=== PATIENT | male | born 1935 | race Caucasian/White ===

== ENCOUNTER 2019-08-05 21:28 | Inpatient (IN) | payer OTHER ==
[2019-08-05] MEDS ORDERED: ALBUTEROL 2.5 MG/3 ML NEB SOL ONE (21:38)
[2019-08-05] MEDS ORDERED: IPRATROPIUM BROM 0.5MG/2.5ML ONE (21:38)
[2019-08-05] MEDS ORDERED: NA CHLORIDE 0.9% 2,000 ML ONE (22:11)
[2019-08-05 22:16] LABS: Absolute Lymphocytes (CBC) 0.7 K/uL (0.7-4.9); Basophils % 0.3 % (0-1.3); Hematocrit 36.8 % (39.6-49.0); Lymphocytes % 5.1 % (15.3-44.8); MPV 9.4 fL (7.6-11.3); RBC Red Blood Cell Count 4.03 M/uL (4.33-5.43)
[2019-08-05 22:20] LABS: Protime INR 1.19
[2019-08-05] MEDS ORDERED: AZITHROMYCIN 500 MG INJ IVPB ONE (22:33)
[2019-08-05] MEDS ORDERED: CEFTRIAXONE 1000 MG/VIAL ONE (22:33)
[2019-08-05] MEDS ORDERED: NA CHLORIDE 0.9% 100 ML IV ONE (22:34)
[2019-08-05] MEDS ORDERED: NA CHLORIDE 0.9% 250 ML ONE (22:34)
[2019-08-05 22:44] LABS: Arterial Blood Carboxyhemoglob 1.9 % (0-1.5); Blood Gas Oxyhemoglobin 89.2 % (94-97); Blood O2 Saturation 91.9 % (92-98.5)
[2019-08-05 22:50] LABS: Blood Morphology Comment NOT SEEN (NOT SEEN); Platelet Estimate ADEQ
[2019-08-05 22:56] LABS: Albumin 2.5 g/dL (3.4-5.0); Bilirubin Direct 0.5 mg/dL (0-0.2); Bilirubin Total 1.5 mg/dL (0.2-1.0); CKMB Creatine Kinase MB 1.5 ng/mL (0.3-3.6); Protein, Total 6.6 g/dL (6.4-8.2); Troponin (Emerg Dept Use Only) 0.05 ng/mL (0.0-0.045)
[2019-08-05] MEDS ORDERED: ONDANSETRON 4 MG/2 ML VIAL IV PRN (23:03)
[2019-08-05] MEDS ORDERED: ACETAMINOPHEN 500 MG TAB PO PRN (23:03)
[2019-08-05] MEDS ORDERED: NA CHLORIDE 0.9% 1,000 ML IV SCH (23:45)
--- NOTE | 2019-08-06 00:05 | EDPHYS ---
Physician Documentation [facility] Name: Ephraim Syed Age: 84 yrs Sex: Male : 1935 Arrival Date: 08/05/2019 Time: 21:36 Bed 3 Private MD: ED Physician Jourdan Parada HPI: 08/05 02:16 This 84 yrs old Male presents to ER via EMS with complaints of Shortness Of tw4 Breath. 02:16 The patient has shortness of breath at rest. Onset: The symptoms/episode began/occurred tw4 2 day(s) ago. Duration: The symptoms are continuous, and are unchanged since they started. The patient's shortness of breath has no apparent modifying factors. Associated signs and symptoms: The patient has no apparent associated signs or symptoms. Severity of symptoms: At their worst the symptoms were moderate in the emergency department the symptoms are unchanged. The patient has not experienced similar symptoms in the past. Historical: - Allergies: 08/04 21:52 No Known Allergies; ea - Home Meds: 22:16 tamsulosin 0.4 mg oral cp24 1 cap once daily [Active]; simvastatin 80 mg Oral tab 80 mg ea daily [Active]; metoprolol tartrate 50 mg Oral tab 1 tab 2 times per day [Active]; losartan 100 mg oral tab 1 tab twice daily [Active]; amlodipine 10 mg tab 1 tab once daily [Active]; pantoprazole 40 mg oral TbEC 1 tab once daily [Active]; Spiriva Respimat 1.25 mcg/actuation inhalation mist 2 puffs once daily [Active]; Breo Ellipta 200-25 mcg/dose inhalation dsdv 1 puff once daily [Active]; ProAir RespiClick 90 mcg/actuation inhalation aepb [Active]; - PMHx: 21:52 COPD; ea 22:16 Hypertension; ea - PSHx: 22:16 Heart stents; ea - Immunization history:: Adult Immunizations up to date. - Social history:: Smoking status: Patient reports the use of cigarette tobacco products, former smoking history 20 years ago. ROS: 08/05 02:16 Constitutional: Negative for fever, chills, and weight loss, Eyes: Negative for injury, tw4 pain, redness, and discharge, Cardiovascular: Negative for chest pain, palpitations, and edema, Abdomen/GI: Negative for abdominal pain, nausea, vomiting, diarrhea, and constipation, Back: Negative for injury and pain, MS/Extremity: Negative for injury and deformity, Skin: Negative for injury, rash, and discoloration. Respiratory: Positive for cough, dyspnea on exertion, shortness of breath, wheezing, Negative for hemoptysis, orthopnea, pleurisy. Exam: 02:16 Head/Face: Normocephalic, atraumatic. Chest/axilla: Normal chest wall appearance and tw4 motion. Nontender with no deformity. No lesions are appreciated. Cardiovascular: Regular rate and rhythm with a normal S1 and S2. No gallops, murmurs, or rubs. Normal PMI, no JVD. No pulse deficits. 02:16 Abdomen/GI: Soft, non-tender, with normal bowel sounds. No distension or tympany. No guarding or rebound. No evidence of tenderness throughout. Back: No spinal tenderness. No costovertebral tenderness. Full range of motion. MS/ Extremity: Pulses equal, no cyanosis. Neurovascular intact. Full, normal range of motion. 02:16 Constitutional: The patient appears diaphoretic, frail, in obvious distress, moderately distressed, uncomfortable. 02:16 Respiratory: the patient does not display signs of respiratory distress, Respirations: accessory muscle usage, that is moderate, prolonged exhalation, pursed lip breathing, Breath sounds: decreased breath sounds, that are moderate, are located in both bases. Vital Signs: 08/04 21:38 BP 152 / 75; Pulse 79; Resp 28; Temp 100.2(TE); Pulse Ox 92% on 2 lpm NC; Weight 68.04 ea kg; Height 5 ft. 6 in. (167.64 cm); 23:27 BP 144 / 64; Pulse 85; Resp 22; Temp 99; Pulse Ox 94% on Venturi mask; ea 08/05 00:15 BP 129 / 53; Pulse 82; Resp 18; Pulse Ox 100% ; ea 01:01 BP 151 / 63; Pulse 94; Resp 22; Temp 98.7; Pulse Ox 94% on Venturi mask; ea 02:00 BP 121 / 84; Pulse 94; Resp 22; Pulse Ox 94% ; ea 08/04 21:38 Body Mass Index 24.21 (68.04 kg, 167.64 cm) ea MDM: 08/04 21:47 Patient medically screened. tw4 08/05 02:16 Differential diagnosis: Chronic Obstructive Pulmonary Disease Myocardial Infarction tw4 pneumonia. Antibiotic administration: Rocephin and Zithromax given. Data reviewed: vital signs, nurses notes. Data interpreted: Pulse oximetry: Interpretation: normal. Test interpretation: by ED physician or midlevel provider: ECG, plain radiologic studies. Counseling: I had a detailed discussion with the patient and/or guardian regarding: the historical points, exam findings, and any diagnostic results supporting the discharge/admit diagnosis, lab results, radiology results. Physician consultation: Omaira Colon MD regarding admission, to the telemetry unit. patient's condition, and will see patient. ED course: Pt brought in bipap and states that he felt better after bi pap per EMS. Pt's CXR revealed bilateral pneumonia. pt placed on IV antibiotics. Discussed case with Dr Colon who agrees with treatment plan and admission. 08/04 21:37 Order name: Amylase, Serum 08/04 21:37 Order name: Basic Metabolic Panel 08/04 21:37 Order name: Blood Culture Adult (2) 08/04 21:37 Order name: CBC with Diff 08/04 21:37 Order name: Ckmb 08/04 21:37 Order name: CPK 08/04 21:37 Order name: Lactate 08/04 21:37 Order name: LFT's 08/04 21:37 Order name: Lipase 08/04 21:37 Order name: Procalcitonin 08/04 21:37 Order name: Protime (+inr) 08/04 21:37 Order name: Ptt, Activated 08/04 21:38 Order name: Troponin (emerg Dept Use Only) 08/04 21:38 Order name: Urine Microscopic Only 08/04 22:06 Order name: Glucose, Ancillary Testing EDMD 08/04 22:24 Order name: ABG tw 08/04 22:51 Order name: Manual Differential EDMD 08/04 23:09 Order name: ABG Arterial Blood Gas EDMD 08/04 23:09 Order name: ABG Arterial Blood Gas EDMD 08/04 23:09 Order name: CBC with Automated Diff EDMS 08/04 23:09 Order name: CBC with Automated Diff EDMS 08/04 23:09 Order name: Comprehensive Metabolic Panel [facility] 08/04 23:09 Order name: Comprehensive Metabolic Panel [facility] 08/04 23:09 Order name: Lactate EDMD 08/04 23:09 Order name: Lactate [facility] 08/04 23:09 Order name: Lipid Profile [facility] 08/04 23:09 Order name: Lipid Profile [facility] 08/04 23:09 Order name: Magnesium EDMD 08/04 23:09 Order name: Magnesium EDMD 08/04 23:09 Order name: Phosphorus [facility] 08/04 21:38 Order name: Chest Single View XRAY 08/04 21:38 Order name: Accucheck; Complete Time: 21:52 ea 08/04 21:38 Order name: Cardiac monitoring; Complete Time: 21:52 08/04 21:38 Order name: EKG - Nurse/Tech; Complete Time: 21:53 ea 08/04 21:38 Order name: IV Saline Lock - Large Bore; Complete Time: 21:53 08/04 21:38 Order name: Labs collected and sent; Complete Time: 21:53 08/04 21:38 Order name: O2 Per Protocol; Complete Time: 21:53 ea 08/04 21:38 Order name: O2 Sat Monitoring; Complete Time: 21:53 08/04 21:38 Order name: Urine Dipstick-Ancillary (obtain specimen); Complete Time: 01:56 08/04 23:09 Order name: CONS Physician Consult [facility] 08/04 23:09 Order name: NPO [facility] 08/04 23:09 Order name: Phosphorus [facility] 08/04 23:09 Order name: NT PRO-BNP [facility] 08/04 23:09 Order name: NT PRO-BNP [facility] 08/05 01:52 Order name: Urine Dipstick--Ancillary (enter results) 2 08/05 02:03 Order name: Urine Dipstick-Ancillary EDMD EC:35 Rate is 82 beats/min. Rhythm is regular, Sinus Rhythm with Occasional PVCs, Right tw4 bundle branch block. QRS [place] is Normal. AL interval is normal. QRS interval is normal. QT interval is normal. No Q waves. T waves are Normal. No ST changes noted. Clinical impression: NSR w/ Non-specific ST/T Changes. Interpreted by me. Reviewed by me. Administered Medications: 08/04 22:15 Drug: NS 0.9% (30 ml/kg) 30 ml/kg Route: IV; Rate: bolus; Site: right hand; ea 08/05 02:26 Follow up: Response: No adverse reaction; IV Status: Infusion continued upon admission; IV Intake: 750ml 08/04 22:36 Drug: Rocephin - (cefTRIAXone) 1 grams Route: IVPB; Infused Over: 30 mins; Site: right ea hand; 23:23 Follow up: Response: No adverse reaction; IV Status: Completed infusion 23:23 Drug: AZITHromycin 500 mg Route: IVPB; Infused Over: 1 hrs; Site: left forearm; ea 08/05 00:23 Follow up: Response: No adverse reaction; IV Status: Completed infusion; IV Intake: ea 250ml Disposition: :33 Critical Care:. tw4 Disposition: 08/06/19 00:04 Hospitalization ordered by Omaira Colon for Inpatient Admission. Preliminary diagnosis are Bronchopneumonia, unspecified organism, Hypoxemia, Chronic obstructive pulmonary disease with (acute) exacerbation. - Bed requested for Telemetry/MedSurg (Inpatient). - Status is Inpatient Admission. ea - Condition is Stable. - Problem is new. - Symptoms are unchanged. Critical care time excluding procedures: :33 Critical care time: Bedside Care: 35 minutes, Consultation: 5 minutes, Family tw4 Intervention: 5 minutes. Total time: 45 minutes Signatures: Dispatcher [employer] [place] Flores RN RN ea Wadley, Terrence, MD MD tw4 Dulce Locke mw2 Corrections: (The following items were deleted from the chart) 00:29 00:04 Hospitalization Ordered by Omaira Colon MD for Inpatient Admission. Preliminary mw2 diagnosis is Bronchopneumonia, unspecified organism; Hypoxemia; Chronic obstructive pulmonary disease with (acute) exacerbation. Bed requested for Telemetry/MedSurg (Inpatient). Status is Inpatient Admission. Condition is Stable. Problem is new. Symptoms are unchanged. tw4 02:27 00:29 08/06/2019 00:04 Hospitalization Ordered by Omaira Colon MD for Inpatient ea Admission. Preliminary diagnosis is Bronchopneumonia, unspecified organism; Hypoxemia; Chronic obstructive pulmonary disease with (acute) exacerbation. Bed requested for Telemetry/MedSurg (Inpatient). Status is Inpatient Admission. Condition is Stable. Problem is new. Symptoms are unchanged. mw2
--- NOTE | 2019-08-06 00:05 | ER ---
Nurse's Notes [facility] Name: Ephraim Syed Age: 84 yrs Sex: Male : 1935 Arrival Date: 08/05/2019 Time: 21:36 Bed 3 Private MD: Diagnosis: Bronchopneumonia, unspecified organism;Hypoxemia;Chronic obstructive pulmonary disease with (acute) exacerbation Presentation: 08/04 21:38 Chief complaint: EMS states: EMS reports pt was on the ground, states family noticed he ea was short of breath. Pt has a history of COPD. EMS initiated 20 G IV to right hand, solumedrol 125, Mag 2G, DuoNeb and CPAP. Coronavirus screen: The patient has NOT traveled to a country currently being monitored by the CDC within the last 14 days. Ebola Screen: No symptoms or risks identified at this time. Initial Sepsis Screen: Does the patient meet any 2 criteria? RR > 20 per min. Temp <36.0*C (96.8*F)) or > 38.3*C (100.9*F). Does the patient have a suspected source of infection? Yes: Other: SOB. Risk Assessment: Do you want to hurt yourself or someone else? Patient reports no desire to harm self or others. 21:38 Method Of Arrival: EMS: [facility] ea 21:38 Acuity: HYACINTH 2 ea Triage Assessment: 21:52 General: Appears uncomfortable, Behavior is appropriate for age. Pain: Denies pain. ea Respiratory: Reports shortness of breath at rest Onset: The symptoms/episode began/occurred SOB for a few days and worsened today, Historical: - Allergies: 21:52 No Known Allergies; ea - Home Meds: 22:16 tamsulosin 0.4 mg oral cp24 1 cap once daily [Active]; simvastatin 80 mg Oral tab 80 mg ea daily [Active]; metoprolol tartrate 50 mg Oral tab 1 tab 2 times per day [Active]; losartan 100 mg oral tab 1 tab twice daily [Active]; amlodipine 10 mg tab 1 tab once daily [Active]; pantoprazole 40 mg oral TbEC 1 tab once daily [Active]; Spiriva Respimat 1.25 mcg/actuation inhalation mist 2 puffs once daily [Active]; Breo Ellipta 200-25 mcg/dose inhalation dsdv 1 puff once daily [Active]; ProAir RespiClick 90 mcg/actuation inhalation aepb [Active]; - PMHx: 21:52 COPD; ea 22:16 Hypertension; ea - PSHx: 22:16 Heart stents; ea - Immunization history:: Adult Immunizations up to date. - Social history:: Smoking status: Patient reports the use of cigarette tobacco products, former smoking history 20 years ago. Screenin:47 Abuse screen: Denies threats or abuse. Nutritional screening: No deficits noted. ea Tuberculosis screening: No symptoms or risk factors identified. Fall Risk IV access (20 points). Assessment: 21:53 General: Appears uncomfortable. Pain: Denies pain. Neuro: Level of Consciousness is ea awake, alert, obeys commands, Oriented to person, place, time, situation. Cardiovascular: Patient's skin is warm and dry. Respiratory: Airway is patent Respiratory effort is even, labored, Respiratory pattern is tachypnea Breath sounds are diminished bilaterally. Derm: Skin is pink, warm \T\ dry. 22:55 Reassessment: Respiratory at bedside, BiPAP removed, pt placed on Venturi mask at 50%, ea pt tolerating well. 23:00 Reassessment: Patient and/or family updated on plan of care and expected duration. Pain ea level reassessed. Patient is alert, oriented x 3, equal unlabored respirations, skin warm/dry/pink. 08/05 00:00 Reassessment: Patient and/or family updated on plan of care and expected duration. Pain ea level reassessed. Patient is alert, oriented x 3, equal unlabored respirations, skin warm/dry/pink. 01:00 Reassessment: Patient and/or family updated on plan of care and expected duration. Pain ea level reassessed. Patient is alert, oriented x 3, equal unlabored respirations, skin warm/dry/pink. 02:20 Reassessment: Patient and/or family updated on plan of care and expected duration. Pain ea level reassessed. Patient is alert, oriented x 3, equal unlabored respirations, skin warm/dry/pink. Pt admitted to second floor, left ED via stretcher per tech. Pt tolerating well. Vital Signs: 08/04 21:38 BP 152 / 75; Pulse 79; Resp 28; Temp 100.2(TE); Pulse Ox 92% on 2 lpm NC; Weight 68.04 ea kg; Height 5 ft. 6 in. (167.64 cm); 23:27 BP 144 / 64; Pulse 85; Resp 22; Temp 99; Pulse Ox 94% on Venturi mask; ea 08/05 00:15 BP 129 / 53; Pulse 82; Resp 18; Pulse Ox 100% ; ea 01:01 BP 151 / 63; Pulse 94; Resp 22; Temp 98.7; Pulse Ox 94% on Venturi mask; ea 02:00 BP 121 / 84; Pulse 94; Resp 22; Pulse Ox 94% ; ea 08/04 21:38 Body Mass Index 24.21 (68.04 kg, 167.64 cm) ea ED Course: 08/04 21:36 Patient arrived in ED. ea 21:45 Initial lab(s) drawn, by me, sent to lab. First set of blood cultures drawn by me. sg Inserted saline lock: 20 gauge in left forearm, using aseptic technique. Blood collected. 21:47 Jourdna Parada MD is Attending Physician. tw4 21:47 Triage completed. ea 21:47 Patient has correct armband on for positive identification. Placed in gown. Bed in low ea position. Call light in reach. Side rails up X2. monitoring analyst on. Pulse ox on. NIBP on. 21:48 Arm band placed on right wrist. Patient placed in an exam room, on a stretcher, on ea pulse oximetry. 21:54 Jamaica Sherman RN is Primary Nurse. ea 21:54 Second set of blood cultures drawn by lab staff. sg 22:24 Chest Single View XRAY In Process Unspecified. EDMS 08/05 00:03 Omaira Colon MD is Hospitalizing Provider. tw4 01:39 Urine collected: clean catch specimen, tea colored, Amount Voided: 250mL sent to lab. lw1 02:15 No provider procedures requiring assistance completed. Patient admitted, IV remains in ea place. Administered Medications: 08/04 22:15 Drug: NS 0.9% (30 ml/kg) 30 ml/kg Route: IV; Rate: bolus; Site: right hand; ea 08/05 02:26 Follow up: Response: No adverse reaction; IV Status: Infusion continued upon admission; ea IV Intake: 750ml 08/04 22:36 Drug: Rocephin - (cefTRIAXone) 1 grams Route: IVPB; Infused Over: 30 mins; Site: right ea hand; 23:23 Follow up: Response: No adverse reaction; IV Status: Completed infusion ea 23:23 Drug: AZITHromycin 500 mg Route: IVPB; Infused Over: 1 hrs; Site: left forearm; ea 08/05 00:23 Follow up: Response: No adverse reaction; IV Status: Completed infusion; IV Intake: ea 250ml Intake: 00:23 IV: 250ml; Total: 250ml. ea 02: IV: 750ml; Total: 1000ml. ea Outcome: 00:04 Decision to Hospitalize by Provider. tw4 02:15 Admitted to Med/surg accompanied by nurse, room 222, Report called to Ry GARCIA ea 02:15 Condition: stable 02:15 Instructed on the need for admit. 02:27 Patient left the ED. ea Signatures: Dispatcher [employer] EDMS Alexander Sawant RN RN Jamaica Sherman RN Jourdan Guallpa ea, MD MD tw4 Sesar Lopez RN RN lw1 Corrections: (The following items were deleted from the chart) 08/04 23:31 23:27 BP 144 / 64; Pulse 85bpm; Resp 18bpm; Pulse Ox 94% Venturi mask; Temp 99F; ea ea 23:32 21:38 BP 152 / 75; Pulse 79bpm; Resp 18bpm; Pulse Ox 92% 2 lpm Nasal Cannula; Temp ea 100.2F Temporal; 68.04 kg; Height 5 ft. 6 in.; BMI: 24.2; ea
[2019-08-06] MEDS ORDERED: IPRATROPIUM BROM 0.5MG/2.5ML ONE (00:17)
[2019-08-06] MEDS ORDERED: ALBUTEROL 2.5 MG/3 ML NEB SOL ONE (00:17)
[2019-08-06] MEDS: IPRATROPIUM BROM 0.5MG/2.5ML NEB SCH ×4 (00:35→19:55)
[2019-08-06] MEDS: ALBUTEROL 2.5 MG/3 ML NEB SOL NEB SCH ×4 (00:35→19:55)
[2019-08-06 01:49] LABS: Urine Bacteria <20 /HPF (NONE SEEN); Urine RBC <5 /HPF (NONE SEEN)
[2019-08-06 02:02] LABS: Urine Blood TRACE (NEG); Urine Glucose NEGATIVE (NEG); Urine Protein 1+ (NEG); Urine Specific Gravity 1.015 (1.005-1.030); Urine pH 5.5 (5.0-7.0)
[2019-08-06] MEDS: METHYLPREDNISOLONE 40 MG INJ IV SCH ×5 (02:50→23:19)
[2019-08-06] MEDS: Levofloxacin 750mg IV 750 MG/150 ML BAG IV SCH ×2 (02:51→20:31)
[2019-08-06 03:42] VITALS: BMI 25.7
[2019-08-06] MEDS: KCL 20 MEQ/100 mL IVPB 20 MEQ/100 ML BAG IV SCH ×2 (05:07→06:57)
[2019-08-06 05:55] LABS: Arterial Blood Carboxyhemoglob 1.3 % (0-1.5); Blood O2 Saturation 95.1 % (92-98.5)
--- NOTE | 2019-08-06 07:31 | P.HP ---
Certification for Inpatient Patient admitted to: Inpatient With expected LOS: >2 Midnights Patient will require the following post-hospital care: None Practitioner: I am a practitioner with admitting privileges, knowledge of patient current condition, hospital course, and medical plan of care. Services: Services provided to patient in accordance with Admission requirements found in Title 42 Section 412.3 of the Code of Federal Regulations Patient History Date of Service: 08/05/19 Reason for admission: Respiratory distress History of Present Illness: Patient is an 84-year-old gentleman with a history of asbestosis who presents to the hospital with difficulty breathing. Patient was apparently found on the ground by the family and they noticed that he was having a difficult time with his breathing. EMS was called and they transported him to the hospital. In the emergency room, patient was started on neb treatments and also oxygen. He was initially on BiPAP support. His ABGs came back looking fairly unremarkable. He was hypoxic as he was on the Venti-mask when they took his ABG initially. If patient has had prior chest x-rays which show infiltrates or pleural thickening. This was most likely secondary to asbestos. He is a poor historian and is really not able to give me much more information. He has not been feeling well for the last couple of days. His family brought him into the emergency room for further evaluation. Allergies No Known Allergies Allergy (Verified 08/06/19 02:11) Home Medications: Albuterol Sulfate [Proair Respiclick] 1 puff IH DAILY 08/06/19 Amlodipine [Norvasc] 10 mg PO DAILY 08/06/19 Fluticasone/Vilanterol [Breo Ellipta 200-25 Mcg INH] 1 each IH DAILY 08/06/19 Hydralazine [Apresoline] 25 mg PO BID 08/06/19 Losartan Potassium 100 mg PO BID 08/06/19 Metoprolol Tartrate 50 mg PO BID 08/06/19 Pantoprazole [Protonix Tab] 40 mg PO DAILY 08/06/19 Simvastatin 80 mg PO DAILY 08/06/19 Tamsulosin [Flomax] 0.4 mg PO DAILY 08/06/19 Tiotropium [place] [Spiriva Respimat] 2 puff IH DAILY 08/06/19 - Past Medical/Surgical History Has patient received pneumonia vaccine in the past: No Diabetic: No -: hypertension -: Copd -: Coronary artery disease -: Cardiac catheterization with stent placement - Family History Father Family History: Reviewed- Non-Contributory - Social History Smoking Status: Former smoker Alcohol use: Yes CD- Drugs: No Caffeine use: Yes Place of Residence: Home Review of Systems 10-point ROS is otherwise unremarkable Physical Examination - Vital Signs Temperature: 98.6 F Blood Pressure: 159/67 Pulse: 113 Respirations: 26 Pulse Ox (%): 95 - Physical Exam General: Alert, In no apparent distress, Oriented x2, Confused HEENT: Atraumatic, PERRLA, Mucous membr. moist/pink, EOMI, Sclerae nonicteric Neck: Supple, 2+ carotid pulse no bruit, No LAD, Without JVD or thyroid abnormality Respiratory: Diminished, Expiratory wheezes Cardiovascular: Regular rate/rhythm, Normal S1 S2, Systolic murmur Gastrointestinal: Normal bowel sounds, Soft and benign, Non-distended, No tenderness, No rebound, No guarding Musculoskeletal: No clubbing, No swelling, No tenderness Integumentary: No rashes Neurological: Normal tone, Sensation intact, Cranial nerves 3-12 intact, Normal affect, Abnormal gait, Abnormal strength Lymphatics: No axilla or inguinal lymphadenopathy - Studies Laboratory Data (last 24 hrs) 08/05/19 21:49: PT 14.0 H, INR 1.19, APTT 30.9 08/05/19 21:49: WBC 14.2 H, Hgb 12.3 L, Hct 36.8 L, Plt Count 221 08/05/19 21:49: Sodium 138, Potassium 3.0 L, BUN 14, Creatinine 1.01, Glucose 157 H, Total Bilirubin 1.5 H, AST 12 L, ALT 10 L, Alkaline Phosphatase 62, Amylase 26, Lipase 52 L Assessment & Plan - Problems (Diagnosis) (1) Acute exacerbation of chronic obstructive pulmonary disease (COPD) Current Visit: Yes Status: Acute (2) Asbestosis Current Visit: Yes Status: Acute (3) Hypoxemia Current Visit: Yes Status: Acute (4) Leukocytosis Current Visit: Yes Status: Acute - Plan 1. Continue with IV antibiotics 2. Awaiting sputum and blood culture 3. Repeat chest x-ray 4. Will proceed with CT scan of the chest if pneumonia is not improved 5. Pulmonary consultation 6. Continue with nebs as needed and will also continue steroids 7. O2 per protocol 8. Continue with gentle hydration 9. Repeat labs including CBC and renal function in a.m. 10. GI and DVT prophylaxis Discharge Plan: [facility] Plan to discharge in: Greater than 2 days - Advance Directives Does patient have a Living Will: No Does patient have a Durable POA for Healthcare: No - Code Status/Comfort Care Code Status Assessed: Yes Code Status: Full Code Critical Care: No Time Spent Managing PTS Care (In Minutes): 50
[2019-08-06 08:04] LABS: Absolute Lymphocytes (CBC) 0.4 K/uL (0.7-4.9); Basophils % 0.1 % (0-1.3); Lymphocytes % 4.8 % (15.3-44.8); MPV 8.6 fL (7.6-11.3); RBC Red Blood Cell Count 4.34 M/uL (4.33-5.43)
[2019-08-06 08:42] LABS: Albumin 2.8 g/dL (3.4-5.0); Bilirubin Total 0.8 mg/dL (0.2-1.0); Phosphorus 1.6 mg/dL (2.5-4.9); Protein, Total 7.3 g/dL (6.4-8.2)
[2019-08-06 08:44] LABS: Potassium 2.9 mmol/L (3.5-5.1)
[2019-08-06] MEDS: NA CHLORIDE 0.9% 1,000 ML IV SCH ×2 (08:47→20:39)
[2019-08-06] MEDS: ENOXAPARIN 40 MG/0.4 ML SQ SCH (08:48)
[2019-08-06] MEDS ORDERED: HOME MED 1 EA UNK (Tiotropium Bromide [Spiriva Respimat] 2 PUFF) IH SCH (09:00)
[2019-08-06] MEDS ORDERED: HOME MED 1 EA UNK (Simvastatin [Simvastatin] 80 MG) PO SCH (09:00)
[2019-08-06] MEDS ORDERED: HOME MED 1 EA UNK (Albuterol Sulfate [Proair Respiclick] 1 PUFF) IH SCH (09:00)
[2019-08-06] MEDS ORDERED: HOME MED 1 EA UNK (Fluticasone/Vilanterol [Breo Ellipta 200-25 Mcg Inh] 1 EACH) IH SCH (09:00)
--- NOTE | 2019-08-06 09:02 | RAD REPORT ---
EXAM DESCRIPTION: RAD - Chest Single View - 08/05/2019 10:20 pm CLINICAL HISTORY: SOB COMPARISON: Two view chest September 2016 TECHNIQUE: AP portable chest image was obtained 08/05/2019 10:20 pm . FINDINGS: Chronic interstitial lung pattern is present. Focal airspace opacification is present in t he lower right lung field. Mid left lung field opacification is present similar to comparison. Patien t has extensive chronic pleural and parenchymal disease. Heart and vasculature are normal. No pneumothorax or large pleural effusion. No acute bony abnormali ty seen. No acute aortic findings suspected. IMPRESSION: Suspected lower right lung field pneumonia superimposed on extensive chronic pleural and parenchymal disease.
--- NOTE | 2019-08-06 09:13 | EKG ---
Test Date: 2019-08-05 Test Time: 21:35:58 Street Contractor: MEI MEASUREMENT RESULTS: Intervals: Rate: 82 [place]: 184 QRSD: 92 QT: 402 QTc: 469 [place]: P: [place]: 184 QRS: 0 T: 56 INTERPRETIVE STATEMENTS: Sinus rhythm with premature supraventricular complexes Incomplete right bundle branch block Nonspecific ST abnormality Abnormal ECG Compared to ECG 10/26/2015 17:55:04 Atrial premature complex(es) now present Incomplete right bundle-branch block now present ST (T wave) deviation now present First degree AV block no longer present Left-axis deviation no longer present Electronically Signed On 08-06-19 09:13:05 CDT by Antonio Villa
[2019-08-06] MEDS ORDERED: INFLUENZA VACCINE (for 3y+) 0.5 ML DOSE IMVAC ONE (11:00)
[2019-08-06] MEDS: TAMSULOSIN 0.4 MG SR CAP PO SCH (11:07)
[2019-08-06] MEDS: METOPROLOL TAR 50 MG TAB PO SCH ×2 (11:07→20:32)
--- NOTE | 2019-08-06 11:47 | P.PN ---
Subjective Date of Service: 08/06/19 Chief Complaint: Respiratory distress Patient admitted for shortness of breath. He was on BiPAP in the ED. He is not tolerating Ventimask. Patient had runs of junctional rhythm/MAT. He has been afebrile. Physical Examination - Vital Signs Temperature: 98.2 F Blood Pressure: 161/72 Pulse: 115 Respirations: 18 Pulse Ox (%): 92 - Physical Exam General: Alert, Oriented x3, Mild distress HEENT: Mucous membr. moist/pink, Sclerae nonicteric Neck: Supple, JVD not distended Respiratory: Diminished, Crackles/rales (Bilateral lungs) Cardiovascular: No edema, Normal S1 S2, Other (Tachy) Gastrointestinal: Normal bowel sounds, Soft and benign, Non-distended, No tenderness Musculoskeletal: No swelling, No erythema Integumentary: No rashes Neurological: Other (Nonfocal) - Studies Laboratory Data (last 24 hrs) 08/05/19 21:49: PT 14.0 H, INR 1.19, APTT 30.9 08/05/19 21:49: WBC 14.2 H, Hgb 12.3 L, Hct 36.8 L, Plt Count 221 08/05/19 21:49: Sodium 138, Potassium 3.0 L, BUN 14, Creatinine 1.01, Glucose 157 H, Total Bilirubin 1.5 H, AST 12 L, ALT 10 L, Alkaline Phosphatase 62, Amylase 26, Lipase 52 L Microbiology Data (last 24 hrs): 08/05/19 21:49 Blood - Blood Anaerobic Blood Culture - Final Assessment And Plan - Current Problems (Diagnosis) (1) Acute respiratory failure with hypoxia Current Visit: Yes Status: Acute (2) Acute exacerbation of chronic obstructive pulmonary disease (COPD) Current Visit: Yes Status: Acute (3) Asbestosis Current Visit: Yes Status: Acute (4) Supraventricular tachycardia Current Visit: Yes Status: Acute - Plan Cardiology input appreciated. Titrate oxygen. BiPAP p.r.n. Continue IV steroids, scheduled bronchodilators and antibiotics. Leukocytosis resolved. Follow blood cultures. SVT likely precipitated by hypoxia. On metoprolol for heart rate control.
--- NOTE | 2019-08-06 14:24 | CON ---
Date of Consultation: 08/06/2019 Reason For Consultation: Multifocal atrial tachycardia and arrhythmias. History Of Present Illness: Mr. Syed is an 84-year-old male. He is known to us from the practice for many years. He has a history of hypertension; COPD; coronary artery disease, status post stents approximately 20 years ago, came in with pneumonia, asbestosis, shortness of breath. While he was b eing treated, he had some episode of multifocal atrial tachycardia and an elevated troponin. This shabazz s resolved and I was consulted. He denied chest pain, nausea, vomiting, diaphoresis, PND, orthopnea, pedal edema, palpitations, or syncope. His MAT was noted on telemetry. Past Medical History: As stated above. Allergies: NONE. Review of Systems: Negative. Social History: Negative. Family History: Noncontributory. Medications At Home: Protonix, Flomax, inhalers, Norvasc, losartan, hydralazine, metoprolol, and Zoc or. Physical Examination: General: Mr. Syed was in no acute distress. Vital Signs: His vital signs were stable. He was afebrile. He was in a sinus rhythm now at a rate of 90. HEENT: Negative. Neck: Supple without any bruit, lymphadenopathy, JVD, or thyromegaly. Chest: Revealed wheezing on expiration. No rales. Cardiac: Revealed a regular rhythm and rate without any gallops or rubs. He did have what sounds li ke an aortic sclerosis murmur. Abdomen: Benign. Extremities: Revealed trace edema. Neurologic: He was nonfocal. Skin: Dry and intact. Extremities: Pulses in the dorsalis pedis and posterior tibial were present bilaterally. Impression And Plan: 1.Multifocal atrial tachycardia secondary to chronic obstructive pulmonary disease, hypoxia, and asb estosis. 2.Elevated troponin secondary to the same thing. 3.History of coronary artery disease, status post stent, that is stable. 4.Hypertension, well controlled. 5.Dyslipidemia, well controlled. 6.Gastroesophageal reflux disease, well controlled. 7.Benign prostatic hypertrophy, well controlled. I agree with his present regimen right now including his home medications, Levaquin, steroids, inhale r, potassium supplementation. I would increase the beta-roxy on an as-needed basis if he goes cammy k into multifocal atrial tachycardia. Echocardiogram is pending for tomorrow. We will see him in th e office as an outpatient after he goes home. GABBY Voice ID: [id number] Report ID: [id number]
[2019-08-06] MEDS ORDERED: POTASSIUM 25 MEQ EFFERV TAB PO ONE (19:00)
[2019-08-06] MEDS: ATORVASTATIN 40 MG TAB PO SCH (20:32)
[2019-08-07] MEDS: ALBUTEROL 2.5 MG/3 ML NEB SOL NEB SCH ×2 (01:20→07:15)
[2019-08-07] MEDS: IPRATROPIUM BROM 0.5MG/2.5ML NEB SCH ×4 (01:20→19:46)
[2019-08-07 04:29] LABS: BUN Blood Urea Nitrogen 12 mg/dL (7-18); Bicarbonate 27 mmol/L (21-32); Glucose Level 147 mg/dL (74-106); Potassium 3.6 mmol/L (3.5-5.1); Sodium Level 144 mmol/L (136-145)
[2019-08-07] MEDS: METHYLPREDNISOLONE 40 MG INJ IV SCH ×2 (05:37→11:16)
[2019-08-07] MEDS ORDERED: POTASSIUM 25 MEQ EFFERV TAB PO ONE (06:00)
[2019-08-07] MEDS: ENOXAPARIN 40 MG/0.4 ML SQ SCH (08:12)
[2019-08-07] MEDS: METOPROLOL TAR 50 MG TAB PO SCH ×2 (08:12→20:37)
[2019-08-07] MEDS: TAMSULOSIN 0.4 MG SR CAP PO SCH (08:12)
[2019-08-07] MEDS: PANTOPRAZOLE 40MG TABLET PO SCH (08:12)
[2019-08-07] MEDS ORDERED: ALBUTEROL 2.5 MG/3 ML NEB SOL NEB PRN (12:33)
--- NOTE | 2019-08-07 12:35 | P.CNS ---
Date of Consult: 08/07/19 Reason for Consult: Hypoxemia Chief Complaint: Respiratory distress History of Present Illness: Patient is 84 years of age admitted to the hospital is been complaining of increasing weakness and fallen to the floor worsening shortness of breath denies any fever chills or cough no chest pain was found to have bilateral infiltrates patient's pro calcitonin level was also elevated significant hypoxemia Allergies No Known Allergies Allergy (Verified 08/06/19 02:11) Home Medications: Albuterol Sulfate [Proair Respiclick] 1 puff IH DAILY 08/06/19 Amlodipine [Norvasc] 10 mg PO DAILY 08/06/19 Fluticasone/Vilanterol [Breo Ellipta 200-25 Mcg INH] 1 each IH DAILY 08/06/19 Hydralazine [Apresoline] 25 mg PO BID 08/06/19 Losartan Potassium 100 mg PO BID 08/06/19 Metoprolol Tartrate 50 mg PO BID 08/06/19 Pantoprazole [Protonix Tab] 40 mg PO DAILY 08/06/19 Simvastatin 80 mg PO DAILY 08/06/19 Tamsulosin [Flomax] 0.4 mg PO DAILY 08/06/19 Tiotropium [place] [Spiriva Respimat] 2 puff IH DAILY 08/06/19 - Past Medical/Surgical History Diabetic: No -: hypertension -: Copd -: Coronary artery disease -: Cardiac catheterization with stent placement - Family History Father Family History: Reviewed- Non-Contributory - Social History Alcohol use: Yes CD- Drugs: No Caffeine use: Yes Place of Residence: Home Physical Examination Temp Pulse Resp BP Pulse Ox 98.1 F 103 H 19 166/69 H 92 08/07/19 08:00 08/07/19 08:00 08/07/19 08:00 08/07/19 08:00 08/07/19 08:00 General: Alert, Oriented x3, Mild distress Respiratory: Crackles/rales (Crackles on both sides right greater than left) Cardiovascular: No edema, Regular rate/rhythm - Problems (1) Acute exacerbation of chronic obstructive pulmonary disease (COPD) Current Visit: Yes Status: Acute Plan: Patient with admitted with possible acute exacerbation of COPD he does have bilateral infiltrates right more than the left chemistries unremarkable white count is mildly elevated cultures negative blood pressure is little elevated echocardiogram shows normal left ventricular function nasal cannula oxygen patient to resume his of bronchodilators at home change to p.o. levofloxacin he may have diastolic dysfunction add some Lasix patient has severe COPD
[2019-08-07] MEDS ORDERED: FUROSEMIDE 20 MG/ 2ML VIAL IV SCH (13:00)
[2019-08-07 13:34] LABS: Blood Gas Oxyhemoglobin 88.1 % (94-97); Blood O2 Saturation 89.7 % (92-98.5)
--- NOTE | 2019-08-07 15:22 | ECHO ---
HEIGHT: 5 ft 6 in WEIGHT: 159 lb 4.8 oz DATE OF STUDY: 08/07/[address]: Antonio Villa MD 2-DIMENSIONAL: YES M.MODE: YES DOPPLER: YES COLOR FLOW: YES TDS: YES PORTABLE: NO DEFINITY: NO BUBBLE STUDY: NO DIAGNOSIS: SHORTNESS OF BREATH CARDIAC HISTORY: CATHERIZATION: NO SURGERY: NO PROSTHETIC VALVE: NO PACEMAKER: NO MEASUREMENTS (cm) DIASTOLIC (NORMALS) SYSTOLIC (NORMALS) IVSd 0.9 (0.6-1.2) LA Diam 3.2 (1.9-4.0) LVEF 58% LVIDd 4.3 (3.5-5.7) LVIDs 3.0 (2.0-3.5) %FS 30% LVPWd 1.0 (0.6-1.2) Ao Diam 3.1 (2.0-3.7) 2 DIMENSIONAL ASSESSMENT: RIGHT ATRIUM: NORMAL LEFT ATRIUM: NORMAL RIGHT VENTRICLE: NORMAL LEFT VENTRICLE: NORMAL TRICUSPID VALVE: NORMAL MITRAL VALVE: MILD MITRAL ANNULAR CALCIFICATION PULMONIC VALVE: NORMAL AORTIC VALVE: SCLEROSIS PERICARDIAL EFFUSION: NONE AORTIC ROOT: NORMAL LEFT VENTRICULAR WALL MOTION: NORMAL DOPPLER/COLOR FLOW: MILD TRICUSPID REGURGITATION. NO AORTIC STENOSIS OR AORTIC REGURGITATION. ESTIMATED RIGHT VENTRICULAR SYSTOLIC PRESSURE 40 mmHg. MILD PULMONARY HYPERTENSION. COMMENTS: NORMAL LEFT VENTRICULAR EJECTION FRACTION. MILD MITRAL ANNULAR CALCIFICATION. AORTIC SCLEROSIS WITH NO AORTIC STENOSIS OR AORTIC REGURGITATION. MILD TRICUSPID REGURGITATION. MILD PULMONARY HYPERTENSION. TECHNOLOGIST: Trever PLUMMER
--- NOTE | 2019-08-07 15:44 | P.PN ---
Subjective Date of Service: 08/07/19 Chief Complaint: Respiratory distress Subjective: Other (Patient is slowly improving.) Physical Examination - Vital Signs Temperature: 98 F Blood Pressure: 158/72 Pulse: 89 Respirations: 18 Pulse Ox (%): 94 - Physical Exam General: Alert, In no apparent distress, Oriented x3, Cooperative HEENT: Atraumatic Neck: Supple Respiratory: Expiratory wheezes (Bilateral) Cardiovascular: Normal pulses, Regular rate/rhythm Gastrointestinal: Normal bowel sounds, Soft and benign, Non-distended, No masses , No rebound, No guarding Neurological: Normal speech, Normal strength at 5/5 x4 extr, Normal tone, Normal affect - Studies Microbiology Data (last 24 hrs): 08/05/19 21:49 Blood - Blood Anaerobic Blood Culture - Final Medications List Reviewed: Yes Assessment & Plan Discharge Plan: Home Plan to discharge in: 48 Hours Physician Review Additional Text: Impression: Acute on chronic respiratory failure secondary to COPD exacerbation complicated with right lower lobe pneumonia Hypertension Suspect acute on chronic diastolic CHF with pulmonary hypertension Multifocal atrial tachycardia secondary to respiratory failure Hyperlipidemia BPH Plan: Acute on chronic respiratory failure secondary to COPD exacerbation complicated with right lower lobe pneumonia: Case discussed with pulmonology. Continue antibiotic therapy. Continue COPD medication. Will try to wean off oxygen. Patient will likely require home oxygen at discharge. Will ambulate with physical therapy. Will continue to monitor closely. Anticipate discharge in the next 48 hr with clinical improvement. Hypertension: Continue medication. Suspect acute on chronic diastolic CHF with pulmonary hypertension: Continue Lasix IV. Will teach on 1500 cc per day fluid restriction. Echo reviewed. Multifocal atrial tachycardia secondary to respiratory failure: Continue medication. Hyperlipidemia: Continue medication. BPH: Continue medication. Time Spent Managing Pts Care (In Minutes): 55
[2019-08-07] MEDS: FUROSEMIDE 20 MG/ 2ML VIAL IV SCH (16:48)
[2019-08-07] MEDS: Levofloxacin 750mg IV 750 MG/150 ML BAG IV SCH (20:37)
[2019-08-07] MEDS: ATORVASTATIN 40 MG TAB PO SCH (20:37)
[2019-08-07] MEDS: predniSONE 20 MG TAB PO SCH (20:38)
[2019-08-08] MEDS: IPRATROPIUM BROM 0.5MG/2.5ML NEB SCH ×4 (01:00→19:40)
[2019-08-08 05:48] LABS: Absolute Lymphocytes (CBC) 0.5 K/uL (0.7-4.9); Basophils % 0.1 % (0-1.3); Hematocrit 38.9 % (39.6-49.0); Lymphocytes % 4.2 % (15.3-44.8); MPV 8.6 fL (7.6-11.3); RBC Red Blood Cell Count 4.26 M/uL (4.33-5.43)
[2019-08-08 05:58] LABS: BUN Blood Urea Nitrogen 19 mg/dL (7-18); Bicarbonate 29 mmol/L (21-32); Glucose Level 139 mg/dL (74-106); Phosphorus 2.1 mg/dL (2.5-4.9); Potassium 3.7 mmol/L (3.5-5.1); Sodium Level 144 mmol/L (136-145)
--- NOTE | 2019-08-08 07:11 | RAD REPORT ---
EXAM DESCRIPTION: RAD - Chest Single View - 08/08/2019 6:59 am CLINICAL HISTORY: Follow for pneumoniapneumonia, shortness of breath COMPARISON: August 04 TECHNIQUE: AP portable chest image was obtained 08/08/2019 6:59 am . FINDINGS: The patient has a baseline of calcified pleural plaquing and chronic interstitial lung dis ease. Left lung field opacification is not substantially different. Right lung base infiltrate change s show slight improvement. Heart and vasculature are normal. No measurable pleural effusion and no pn eumothorax. No acute bony abnormality seen. No acute aortic findings suspected. IMPRESSION: Slight improvement in the right base infiltrative process since August 04.
[2019-08-08 07:41] LABS: Blood Morphology Comment NOT SEEN (NOT SEEN); Platelet Estimate ADEQ
[2019-08-08] MEDS: PANTOPRAZOLE 40MG TABLET PO SCH (08:34)
[2019-08-08] MEDS: predniSONE 20 MG TAB PO SCH (08:34)
[2019-08-08] MEDS: METOPROLOL TAR 50 MG TAB PO SCH ×2 (08:35→18:37)
[2019-08-08] MEDS: ENOXAPARIN 40 MG/0.4 ML SQ SCH (08:35)
[2019-08-08] MEDS: FUROSEMIDE 20 MG/ 2ML VIAL IV SCH (08:35)
[2019-08-08] MEDS: TAMSULOSIN 0.4 MG SR CAP PO SCH (08:35)
[2019-08-08] MEDS ORDERED: POTASSIUM PHOS IN 0.9 % NACL 15 MMOL/250 ML BAG IV ONE (09:00)
--- NOTE | 2019-08-08 09:06 | P.PN ---
Subjective Date of Service: 08/08/19 Chief Complaint: COPD exacerbation Subjective: Improving (Patient is improving feeling better) Review of Systems General: Weakness Respiratory: Shortness of Breath Physical Examination - Vital Signs Temperature: 98.5 F Blood Pressure: 176/81 Pulse: 85 Respirations: 16 Pulse Ox (%): 92 - Physical Exam General: Alert, In no apparent distress, Oriented x3 Respiratory: Expiratory wheezes Cardiovascular: No edema, Regular rate/rhythm - Studies Medications List Reviewed: Yes Assessment & Plan - Problems (Diagnosis) (1) Acute exacerbation of chronic obstructive pulmonary disease (COPD) Current Visit: Yes Status: Acute Plan: Patient admitted with COPD exacerbation chest x-rays improving may have diastolic dysfunction echocardiogram is normal plan to change to p.o. levofloxacin ambulate reduce prednisone at spironolactone Dc IV Lasix resume home bronchodilator consider discharge
[2019-08-08] MEDS: SPIRONOLACTONE 25 MG TABLET PO SCH ×2 (09:40→22:20)
--- NOTE | 2019-08-08 10:31 | EKG ---
Test Date: 2019-08-06 Test Time: 08:07:52 History Teacher: [id number] MEASUREMENT RESULTS: Intervals: Rate: 114 ID: [id number] QT: 382 QTc: 526 [place]: P: ID: [id number] T: 57 INTERPRETIVE STATEMENTS: Accelerated Junctional rhythm Incomplete right bundle branch block ST depression, consider subendocardial injury or digitalis effect Nonspecific T wave abnormality Abnormal ECG Compared to ECG 08/05/2019 21:35:58 Accelerated junctional rhythm now present T-wave abnormality now present Sinus rhythm no longer present Atrial premature complex(es) no longer present ST (T wave) deviation still present Electronically Signed On 08-08-19 10:29:15 CDT by Antonio Villa
--- NOTE | 2019-08-08 10:55 | P.PN ---
Subjective Date of Service: 08/08/19 Chief Complaint: COPD exacerbation Patient states he feels better but history requiring Ventimask to maintain oxygen saturation greater than 90%. His heart rate has improved. He has been afebrile. Physical Examination - Vital Signs Temperature: 98.5 F Blood Pressure: 176/81 Pulse: 85 Respirations: 16 Pulse Ox (%): 92 - Physical Exam General: Alert, In no apparent distress, Oriented x3 HEENT: Mucous membr. moist/pink, Sclerae nonicteric Neck: Supple, JVD not distended Respiratory: Diminished (Bilateral coarse sounds, worse on the left.) Cardiovascular: No edema, Regular rate/rhythm, Normal S1 S2 Gastrointestinal: Normal bowel sounds, Soft and benign, Non-distended, No tenderness Musculoskeletal: No erythema Integumentary: No rashes Neurological: Other (Non-focal) - Studies Medications List Reviewed: Yes Assessment And Plan - Current Problems (Diagnosis) (1) Acute respiratory failure with hypoxia Current Visit: Yes Status: Acute (2) Acute exacerbation of chronic obstructive pulmonary disease (COPD) Current Visit: Yes Status: Acute (3) Asbestosis Current Visit: Yes Status: Chronic (4) Supraventricular tachycardia Current Visit: Yes Status: Acute (5) Pneumonia Current Visit: Yes Status: Acute - Plan Titrate oxygen. BiPAP p.r.n. On oral prednisone, scheduled bronchodilators and antibiotics. Patient started on IV Lasix per pulmonology Cultures: no growth to date SVT likely precipitated by hypoxia. On metoprolol for heart rate control. Optimize electrolytes.
[2019-08-08] MEDS ORDERED: ALBUTEROL 2.5 MG/3 ML NEB SOL NEB PRN (15:00)
[2019-08-08] MEDS: ATORVASTATIN 40 MG TAB PO SCH (22:20)
[2019-08-08] MEDS: predniSONE 10 MG TAB PO SCH (22:20)
[2019-08-09] MEDS: IPRATROPIUM BROM 0.5MG/2.5ML NEB SCH ×4 (02:50→19:55)
[2019-08-09 06:17] LABS: Magnesium 2.2 mg/dL (1.8-2.4); Phosphorus 2.8 mg/dL (2.5-4.9); Potassium 3.6 mmol/L (3.5-5.1)
[2019-08-09 06:20] LABS: Absolute Lymphocytes (CBC) 1.1 K/uL (0.7-4.9); Basophils % 0.2 % (0-1.3); Hematocrit 42.1 % (39.6-49.0); Lymphocytes % 11.2 % (15.3-44.8); MPV 8.8 fL (7.6-11.3); RBC Red Blood Cell Count 4.64 M/uL (4.33-5.43)
[2019-08-09] MEDS ORDERED: POTASSIUM 25 MEQ EFFERV TAB PO ONE (09:00)
[2019-08-09] MEDS: PANTOPRAZOLE 40MG TABLET PO SCH (09:46)
[2019-08-09] MEDS: TAMSULOSIN 0.4 MG SR CAP PO SCH (09:47)
[2019-08-09] MEDS: SPIRONOLACTONE 25 MG TABLET PO SCH ×2 (09:47→22:49)
[2019-08-09] MEDS: METOPROLOL TAR 50 MG TAB PO SCH ×2 (09:47→22:48)
[2019-08-09] MEDS: predniSONE 10 MG TAB PO SCH ×2 (09:47→22:49)
[2019-08-09] MEDS: ENOXAPARIN 40 MG/0.4 ML SQ SCH (09:47)
[2019-08-09] MEDS: levoFLOXacin 500 MG TAB PO SCH (09:47)
--- NOTE | 2019-08-09 14:12 | PN ---
Date of Progress Note: 08/09/2019 Code Status: Full. Subjective: The patient is seen and examined, chart reviewed, and case discussed with RN. The patie nt states he feels okay. Currently, on Venturi mask. Still having some cough. Medications: List reviewed. Physical Examination: Vital Signs: Temperature 97, heart rate 87, blood pressure 176/72, respirations 20, O2 sat 97% on 15 L via Venturi mask. General: Awake, alert, oriented x3. Elderly male, in some mild respiratory distress. CV: S1, S2. Regular rate and rhythm. Peripheral pulses present. Respiratory: Diminished breath sounds. Some rales heard. No wheezing or stridor. Patient is sligh tly tachypneic. Gastrointestinal: Abdomen is soft, nontender, nondistended. Positive bowel sounds. Extremities: No clubbing, cyanosis, or edema. Neurologic: Nonfocal. Laboratory Data: Sodium 142, potassium 3.6, chloride 108, CO2 of 29, BUN 22, creatinine 0.91, glucos e 125, calcium 8.2, phosphorus 2.8, magnesium 2.2. WBC 9.9, H and H 14.4 and 42.1, platelets 305. B lood cultures, no growth to date. Assessment: An 84-year-old male with: 1.Acute respiratory failure with hypoxia. Currently on 15 L via Venturi mask secondary to chronic o bstructive pulmonary disease. Appreciate Pulmonology input. We will continue to wean off as tolerat ed. 2.Acute chronic obstructive pulmonary disease exacerbation. Continue with steroids, bronchodilators , and antibiotics. Pulmonology on board. 3.History of asbestosis. 4.Supraventricular tachycardia. 5.Pneumonia. Chest x-ray on the shows improvement in the right base infiltrate since August 04. 6.Deep vein thrombosis prophylaxis addressed. Plan: Discharge home once weaned off to baseline oxygen. Uses 2-4 L at home. Continue with PT. SA/MODL Voice ID: [id number] Report ID: [id number]
[2019-08-09] MEDS: ATORVASTATIN 40 MG TAB PO SCH (22:49)
[2019-08-10] MEDS: IPRATROPIUM BROM 0.5MG/2.5ML NEB SCH ×2 (01:25→08:45)
[2019-08-10 06:40] LABS: Basophils % 0.2 % (0-1.3); Hematocrit 40.4 % (39.6-49.0); MPV 8.8 fL (7.6-11.3); RBC Red Blood Cell Count 4.46 M/uL (4.33-5.43)
[2019-08-10 07:40] LABS: BUN Blood Urea Nitrogen 23 mg/dL (7-18); Bicarbonate 30 mmol/L (21-32); Glucose Level 116 mg/dL (74-106); Magnesium 2.2 mg/dL (1.8-2.4); Potassium 3.8 mmol/L (3.5-5.1); Sodium Level 142 mmol/L (136-145)
[2019-08-10] MEDS: SPIRONOLACTONE 25 MG TABLET PO SCH (08:21)
[2019-08-10] MEDS: levoFLOXacin 500 MG TAB PO SCH (08:21)
[2019-08-10] MEDS: ENOXAPARIN 40 MG/0.4 ML SQ SCH (08:21)
[2019-08-10] MEDS: PANTOPRAZOLE 40MG TABLET PO SCH (08:21)
[2019-08-10] MEDS: predniSONE 10 MG TAB PO SCH (08:21)
[2019-08-10] MEDS: TAMSULOSIN 0.4 MG SR CAP PO SCH (08:21)
[2019-08-10] MEDS: METOPROLOL TAR 50 MG TAB PO SCH (08:21)
--- NOTE | 2019-08-10 13:12 | DS ---
date of service 08/10/2019 Consultants: 1. Dr. Guadalupe with Pulmonology. 2. Dr. Villa with Cardiology. Admitting Diagnoses: 1. Acute chronic obstructive pulmonary disease exacerbation. 2. Hypoxemia. 3. Asbestosis. 4. Leukocytosis. 5. Essential hypertension. 6. Coronary artery disease, [place] artery, [place] heart, status post stent without angina. Discharge Diagnoses: 1. Acute chronic obstructive pulmonary disease exacerbation, improved. 2. Acute on chronic respiratory failure with hypoxia, now off Venturi mask. 3. History of asbestosis. 4. Supraventricular tachycardia. 5. Essential hypertension, stable. 6. Pneumonia, improving. 7. Coronary artery disease, [place] artery and [place] heart, status post stent without angina. Hospital Course: Patient is an 84-year-old male with past medical history of hypertension, heart disease, COPD, asbestosis, on 2 to 5 L of oxygen at home, comes in with respiratory distress. Patient was placed on BiPAP. He was hypoxic. His chest x-ray showed infiltrate versus pleural thickening, which is likely secondary to his asbestosis. Dr. Guadalupe with Pulmonology was consulted as well as Dr. Villa with Cardiology. Patient was started on nebulizer treatments, steroids, and antibiotics. His chest x-ray showed some right-sided pneumonia as well and repeat x-ray showed improvement. Patient had some possible SVT versus MAT (multifocal atrial tachycardia) and was seen by Dr. Villa. Recommended beta-roxy as needed to be increased. Echocardiogram was also done, which showed EF of 58%, mitral annular calcification, aortic sclerosis with no stenosis, mild tricuspid regurg and also showed mild pulmonary hypertension. Patient did well over the course of the hospital stay. He did require a long time to be weaned off the Ventimask is then down to 4 L, saturating 92%. Normally at home, he uses between 2 to 5 L , sometimes even up to 10 L. He understands that if he requires more than 5 L, he is to call 911. EMS services or seek medical help as this is a sign of acute respiratory failure, worsened his usual. Overall, patient did well. His ABGs remained stable, did show some hypoxia initially. He was not septic. His white blood cell count normalized. Blood cultures did not show any growth. He was then cleared for discharge and sent home in a stable condition. Activity: As tolerated. Medications: As per medication reconciliation list. Followup: Follow up with primary care physician in 2 to 3 days. Follow up with health advisor, Dr. Guadalupe in 2 weeks. Return to ER for worsening condition. Patient instructed to hold blood pressure medications for systolic blood pressure less than 120. Diet: Heart healthy. Activity: As tolerated. Physical Examination: General: Awake, alert, oriented x3. No acute distress, elderly male. CV: S1, S2. Respiratory: Slightly diminished breath sounds, especially on the right. No wheezing. Gastrointestinal: Abdomen is soft, nontender, nondistended. Positive bowel sounds. Extremities: No clubbing, cyanosis, or edema. Neurologic: Nonfocal. Time Spent: Total time spent discharging patient was 37 minutes. BRANDON Voice ID: [id number] Report ID: [id number]
[2019-08-10 14:20] VITALS: O2SAT 94
[2019-08-10 14:30] VITALS: BP 134/91; TEMP 97.4
== END 2019-08-10 13:48 | disposition home or self-care (01) | DRG 190 ==
LOC: ER 21:28 → ERHOLD 23:03 → 2ND 08-06 01:56
PROVIDERS: ADMIT Hospitalist; ATTEND Hospitalist
PROC: 5A09357 Assistance with Respiratory Ventilation, Less than 24 Consecutive Hours, Continuous Positive Airway Pressure (ICD-10-PCS; principal; 2019-08-05)
DX: J44.1 Chronic obstructive pulmonary disease with (acute) exacerbation (principal); J96.01 Acute respiratory failure with hypoxia; J18.9 Pneumonia, unspecified organism; I50.33 Acute on chronic diastolic (congestive) heart failure; I47.1 Supraventricular tachycardia; J61 Pneumoconiosis due to asbestos and other mineral fibers; I25.10 Atherosclerotic heart disease of native coronary artery without angina pectoris; I11.0 Hypertensive heart disease with heart failure; E78.5 Hyperlipidemia, unspecified; K21.9 Gastro-esophageal reflux disease without esophagitis; N40.0 Benign prostatic hyperplasia without lower urinary tract symptoms; J44.0 Chronic obstructive pulmonary disease with (acute) lower respiratory infection; Z95.5 Presence of coronary angioplasty implant and graft; Z99.81 Dependence on supplemental oxygen
CPT/HCPCS: 36415; 71045; 80048; 80053; 80061; 80076; 81003; 81015; 82150; 82550; 82553; 82805; 82947; 83605; 83690; 83735; 83880; 84100; 84132; 84145; 84484; 85025; 85610; 85730; 87040; 93005; 93306; 94640; 94660; 94760; 96361; 96365; 96367; 97116; 97161; 97530; 99285; J0456; J1650; J1940; J2920; J7030; J7512

== ENCOUNTER 2020-11-02 20:13 | Inpatient (IN) | payer OTHER ==
--- NOTE | 2020-11-02 20:44 | RAD REPORT ---
EXAM DESCRIPTION: RAD - Chest Single View - 11/02/2020 8:36 pm CLINICAL HISTORY: SOB COMPARISON: Portable August 07 TECHNIQUE: AP portable chest image was obtained 11/02/2020 8:36 pm . FINDINGS: Patient has extensive chronic interstitial fibrotic lung disease and extensive calcified p leural plaquing. Heart and vasculature are normal. No pneumothorax or large pleural effusion. Chronic costophrenic angle blunting is seen. No acute bony abnormality seen. No acute aortic findings suspec yandel. IMPRESSION: Very extensive chronic pleural and parenchymal lung disease. No acute finding confirmed though severity of disease can mask acute interstitial edema or infiltrate .
[2020-11-02 20:49] LABS: Absolute Lymphocytes (CBC) 0.5 K/uL (0.7-4.9); Basophils % 0.3 % (0-1.3); Hematocrit 41.9 % (39.6-49.0); Lymphocytes % 3.3 % (15.3-44.8); MPV 9.1 fL (7.6-11.3); RBC Red Blood Cell Count 4.63 M/uL (4.33-5.43)
[2020-11-02] MEDS ORDERED: CEFTRIAXONE/SWI 1gm 1 GM/10 ML SYR ONE (20:52)
[2020-11-02] MEDS ORDERED: NA CHLORIDE 0.9% 2,000 ML ONE (20:52)
[2020-11-02 21:03] LABS: Protime INR 1.29
[2020-11-02 21:15] LABS: ALT/SGPT 31 U/L (12-78); AST/SGOT 37 U/L (15-37); Albumin 2.4 g/dL (3.4-5.0); Alkaline Phosphatase 70 U/L (45-117); Amylase 23 U/L (25-115); BUN Blood Urea Nitrogen 18 mg/dL (7-18); Bicarbonate 19 mmol/L (21-32); Bilirubin Direct 0.5 mg/dL (0-0.2); Bilirubin Total 1.2 mg/dL (0.2-1.0); Creatine Phosphokinase 162 U/L (39-308); Glucose Level 180 mg/dL (74-106); Lipase 53 U/L (73-393); Protein, Total 6.6 g/dL (6.4-8.2); Sodium Level 141 mmol/L (136-145); Troponin (Emerg Dept Use Only) 0.13 ng/mL (0.0-0.045)
[2020-11-02 21:18] LABS: CKMB Creatine Kinase MB < 1.0 ng/mL (1.0-3.6)
--- NOTE | 2020-11-02 21:26 | ER ---
Nurse's Notes [facility] Name: Ephraim Syed Age: 85 yrs Sex: Male : 1935 Arrival Date: 11/02/2020 Time: 20:16 Bed 4 Private MD: Diagnosis: Chronic obstructive pulmonary disease with (acute) exacerbation Presentation: 11/02 20:15 Acuity: HYACINTH 1 lp1 20:15 Chief complaint: EMS states: Called for patient with shortness of breath; Per EMS, lp1 patient 72% on 2L NC at home, tachypneic; Reports increasing shortness of breath x 2 days, 99.5F per EMS; Given A/A nebulizer treatment, Solu-Medrol 125mg IV, NS 1L bolus infusing on arrival to EMS. 20:15 Coronavirus screen: Client denies travel out of the [place] in the last 14 days. shortness lp1 of breath. Ebola Screen: No symptoms or risks identified at this time. Initial Sepsis Screen: Does the patient meet any 2 criteria? RR > 20 per min. HR > 90 bpm. Does the patient have a suspected source of infection? Yes: Productive cough/pneumonia. Risk Assessment: Do you want to hurt yourself or someone else? Patient reports no desire to harm self or others. Onset of symptoms was October 31, 2020. 20:15 Method Of Arrival: EMS: [facility] lp1 20:20 Care prior to arrival: Medication(s) given: Albuterol Neb x 1, Atrovent Neb x 1, lp1 Solu-Medrol 125mg IV IV initiated. 18 GA, in the right antecubital area, Glucose check: 175 Med neb given. Oxygen administered. via CPAP or BiPAP. Historical: - Allergies: 20:15 No Known Allergies; lp1 - Home Meds: 23:13 metoprolol tartrate 50 mg Oral tab 1.5 tabs 2 times per day [Active]; hydralazine 25 mg lp1 Oral tab 1 tab 2 times per day [Active]; losartan 100 mg Oral tab 1 tab twice daily [Active]; pantoprazole 40 mg Oral TbEC 1 tab once daily [Active]; amlodipine 10 mg tab 1 tab once daily [Active]; tamsulosin 0.4 mg Oral cp24 1 cap once daily [Active]; aspirin 81 mg Oral TbEC 1 tab once daily [Active]; simvastatin 80 mg Oral tab 80 mg daily [Active]; Spiriva Respimat 1.25 mcg/actuation inhalation mist 2 puffs once daily [Active]; ProAir RespiClick 90 mcg/actuation inhalation aepb [Active]; Breo Ellipta 200-25 mcg/dose inhalation dsdv 1 puff once daily [Active]; - PMHx: 20:15 COPD; Hypertension; lp1 - PSHx: 20:15 None; lp1 - Immunization history:: Adult Immunizations up to date. - Social history:: Smoking status: Patient/guardian denies using tobacco, the patient reports quitting approximately 20 years ago. Screenin:03 Abuse screen: Denies threats or abuse. Denies injuries from another. Nutritional lp1 screening: No deficits noted. Tuberculosis screening: No symptoms or risk factors identified. 21:35 Fall Risk Total Pollard Fall Scale indicates High Risk Score (45 or more points). Fall lp1 prevention measures have been instituted. Side Rails Up X 2 As available patient and family educated on Fall Prevention Program and Strategies. Assessment: 20:20 Reassessment: BiPAP placed on patient; 12/6, rate of 14, 45% O2. lp1 20:20 General: Appears distressed, Behavior is appropriate for age. Pain: Denies pain. Neuro: lp1 Level of Consciousness is awake, alert, obeys commands, Oriented to person, place, situation. Cardiovascular: Patient's skin is warm and dry. Respiratory: Airway is patent Respiratory effort is labored, Respiratory pattern is tachypnea Breath sounds are diminished in left posterior lower lobe and right posterior lower lobe. GI: No signs and/or symptoms were reported involving the gastrointestinal system. : No signs and/or symptoms were reported regarding the genitourinary system. EENT: No signs and/or symptoms were reported regarding the EENT system. Derm: Skin is fragile, is thin, Skin is dry, Skin is normal. Musculoskeletal: No deficits noted. 22:00 Reassessment: Patient appears in no apparent distress at this time. Patient tolerating lp1 BiPAP well; Family at bedside; aware of pending admission. 23:00 Reassessment: Patient appears in no apparent distress at this time. Patient tolerating lp1 biPAP well; assisted patient with position change. 23:00 Respiratory: Respiratory effort is even, relaxed. lp1 23:56 Reassessment: repeat lactated extracted and sent. rr5 Vital Signs: 20:15 BP 137 / 70; Pulse 119; Resp 22; Temp 99.7(O); Pulse Ox 94% on BiPAP; Weight 70.31 kg lp1 (R); Height 5 ft. 6 in. (167.64 cm); Pain 0/10; 21:00 BP 137 / 66; Pulse 102; Resp 20; Pulse Ox 93% on 45% BiPAP; lp1 21:45 BP 133 / 52; Pulse 97; Resp 22; Pulse Ox 97% on 45% BiPAP; lp1 22:30 BP 134 / 65; Pulse 99; Resp 22; Pulse Ox 94% on 45% BiPAP; lp1 23:00 BP 127 / 59; Pulse 90; Resp 19; Pulse Ox 92% on 45% BiPAP; lp1 11/03 00:08 BP 131 / 54; Pulse 88; Resp 22; Pulse Ox 94% on 45% BiPAP; lp1 00:15 Temp 98.5(O); lp1 06 20:15 Body Mass Index 25.02 (70.31 kg, 167.64 cm) lp1 ED Course: 11/02 20:15 Maintain EMS IV. Dressing intact. Good blood return noted. Site clean \T\ dry. Gauge \T\ rr 5 site: G 18 right Ac. 20:16 Patient arrived in ED. la1 20:18 Jay Hemphill NP is PHCP. pm1 20:18 Johnie Painting MD is Attending Physician. pm1 20:20 EKG done, by ED staff, reviewed by Jay Hemphill NP. rr5 20:20 Arm band placed on. lp1 20:20 Patient has correct armband on for positive identification. Placed in gown. Bed in low lp1 position. Call light in reach. Side rails up X2. engine monitor on. Pulse ox on. NIBP on. 20:30 Inserted saline lock: 20 gauge in left hand, using aseptic technique. Blood collected. rr5 20:30 First set of blood cultures drawn by me. rr5 20:36 Chest Single View XRAY In Process Unspecified. EDMS 20:37 Second set of blood cultures drawn by me. rr5 20:41 Sobia Mccollum RN is Primary Nurse. lp1 21:00 Triage completed. lp1 21:25 Kunal Carnes MD is Hospitalizing Provider. pm1 21:35 No provider procedures requiring assistance completed. Patient admitted, IV remains in lp1 place. Administered Medications: 20:45 Drug: NS 0.9% (30 ml/kg) 30 ml/kg Route: IV; Rate: bolus; Site: left forearm; lp1 21:54 Follow up: IV Status: Completed infusion; IV Intake: 1109ml lp1 20:45 Drug: Rocephin (cefTRIAXone) 1 grams Route: IV; Rate: calculated rate; Site: left lp1 forearm; 21:54 Follow up: IV Status: Completed infusion; IV Intake: 10ml lp1 21:45 Drug: AZITHromycin 500 mg Route: IVPB; Infused Over: 1 hrs; Site: right antecubital; lp1 22:45 Follow up: Response: No adverse reaction; IV Status: Completed infusion; IV Intake: rr5 250ml 21:45 Drug: Potassium Chloride 20 mEq Route: IV; Rate: calculated rate; Site: left forearm; lp1 23:52 Follow up: Response: No adverse reaction; IV Status: Completed infusion; IV Intake: rr5 100ml 21:50 Drug: Lovenox (enoxaparin) 1 mg/kg Route: Sub-Q; Site: left lower abdomen; lp1 22:48 Follow up: Response: No adverse reaction lp1 22:01 Not Given (Physician Discretion): Aspirin Chewable Tablet 324 mg PO once; 81 mg tablets lp1 x 4 22:01 Drug: Aspirin 325 mg Route: PO; lp1 23:52 Follow up: Response: No adverse reaction rr5 Intake: 20:15 IV: 1000ml (IV Fluid); Total: 1000ml. lp1 21:54 IV: 1109ml; Total: 2109ml. lp1 21:54 IV: 10ml; Total: 2119ml. lp1 22:45 IV: 250ml; Total: 2369ml. rr5 23:52 IV: 100ml; Total: 2469ml. rr5 20:15 By EMS lp1 Outcome: 21:25 Decision to Hospitalize by Provider. pm1 11/03 00:02 Admitted to Tele room 405, with oxygen, with chart, Report called to JOSE Childers lp1 Condition: stable Instructed on the need for admit. 00:24 Patient left the ED. rr5 Signatures: Dispatcher [employer] EDMS Sobia Mccollum RN RN lp1 Main Gary, COMMERCIAL REAL ESTATE LENDER-C COMMERCIAL REAL ESTATE LENDER-Cla1 Jay Hemphill, SUPERVISOR ROD PLACING SUPERVISOR ROD PLACING pm1 Kunal Plascencia RN RN rr5 Corrections: (The following items were deleted from the chart) 11/02 23:11 21:00 BP 137 / 66; Pulse 102bpm; Resp 20bpm; Pulse Ox 93% BiPAP; lp1 lp1 23:11 21:45 BP 133 / 52; Pulse 97bpm; Resp 22bpm; Pulse Ox 97% BiPAP; lp1 lp1
--- NOTE | 2020-11-02 21:26 | EDPHYS ---
Physician Documentation [facility] Name: Ephraim Syed Age: 85 yrs Sex: Male : 1935 Arrival Date: 11/02/2020 Time: 20:16 Bed 4 Private MD: ED Physician Johnie Painting HPI: 11/02 20:22 This 85 yrs old Male presents to ER via EMS with complaints of Respiratory pm1 Distress. 20:22 The patient has shortness of breath at rest. Onset: The symptoms/episode began/occurred pm1 today. Duration: The symptoms are continuous. The patient's shortness of breath is aggravated by exertion, is alleviated by application of supplemental oxygen, CPAP by EMS. Patient given Solu-Medrol 125 mg and A\T\A treatment in route by EMS. Associated signs and symptoms: Pertinent negatives: chest pain, fever, nausea, vomiting. Severity of symptoms: in the emergency department the symptoms have improved. The patient has experienced similar episodes in the past, several times. Historical: - Allergies: 20:15 No Known Allergies; lp1 - Home Meds: 23:13 metoprolol tartrate 50 mg Oral tab 1.5 tabs 2 times per day [Active]; hydralazine 25 mg lp1 Oral tab 1 tab 2 times per day [Active]; losartan 100 mg Oral tab 1 tab twice daily [Active]; pantoprazole 40 mg Oral TbEC 1 tab once daily [Active]; amlodipine 10 mg tab 1 tab once daily [Active]; tamsulosin 0.4 mg Oral cp24 1 cap once daily [Active]; aspirin 81 mg Oral TbEC 1 tab once daily [Active]; simvastatin 80 mg Oral tab 80 mg daily [Active]; Spiriva Respimat 1.25 mcg/actuation inhalation mist 2 puffs once daily [Active]; ProAir RespiClick 90 mcg/actuation inhalation aepb [Active]; Breo Ellipta 200-25 mcg/dose inhalation dsdv 1 puff once daily [Active]; - PMHx: 20:15 COPD; Hypertension; lp1 - PSHx: 20:15 None; lp1 - Immunization history:: Adult Immunizations up to date. - Social history:: Smoking status: Patient/guardian denies using tobacco, the patient reports quitting approximately 20 years ago. ROS: 20:22 Constitutional: Negative for fever, chills, and weight loss. pm1 20:22 Cardiovascular: Negative for chest pain, palpitations, and edema. 20:22 Abdomen/GI: Negative for abdominal pain, nausea, vomiting, diarrhea, and constipation, Back: Negative for injury and pain, MS/Extremity: Negative for injury and deformity, Skin: Negative for injury, rash, and discoloration. 20:22 Respiratory: Positive for cough, shortness of breath, Negative for 20:22 Neuro: Positive for near syncope, Negative for headache, numbness, tingling. 20:22 All other systems are negative. Exam: 20:22 Constitutional: This is a well developed, well nourished patient who is awake, alert, pm1 and in no acute distress. Head/Face: Normocephalic, atraumatic. 20:22 Back: No spinal tenderness. No costovertebral tenderness. Full range of motion. Skin: Warm, dry with normal turgor. Normal color with no rashes, no lesions, and no evidence of cellulitis. 20:22 Eyes: Exam is negative for acute changes, Extraocular movements: intact throughout, Sclera: icterus. 20:22 ENT: External ear(s): are unremarkable, Ear canal(s): are normal, TM's: are normal, Mouth: Lips: normal, Oral mucosa: normal, pink and intact, moist. 20:22 Chest/axilla: Inspection: normal, Palpation: is normal. 20:22 Cardiovascular: Rate: tachycardic, Rhythm: regular, Pulses: no pulse deficits are appreciated. 20:22 Respiratory: Exam negative for acute changes, respiratory distress, shortness of breath, Breath sounds: bronchial sounds, that are mild, are heard diffusely. 20:22 Abdomen/GI: Inspection: abdomen appears normal, Palpation: abdomen is soft and non-tender, in all quadrants. 20:22 Musculoskeletal/extremity: Exam is negative for acute changes, ROM: intact in all extremities. 20:22 Neuro: Exam negative for acute changes, Orientation: is normal, Motor: is normal, moves all fours. Vital Signs: 20:15 BP 137 / 70; Pulse 119; Resp 22; Temp 99.7(O); Pulse Ox 94% on BiPAP; Weight 70.31 kg lp1 (R); Height 5 ft. 6 in. (167.64 cm); Pain 0/10; 21:00 BP 137 / 66; Pulse 102; Resp 20; Pulse Ox 93% on 45% BiPAP; lp1 21:45 BP 133 / 52; Pulse 97; Resp 22; Pulse Ox 97% on 45% BiPAP; lp1 22:30 BP 134 / 65; Pulse 99; Resp 22; Pulse Ox 94% on 45% BiPAP; lp1 23:00 BP 127 / 59; Pulse 90; Resp 19; Pulse Ox 92% on 45% BiPAP; lp1 06 00:08 BP 131 / 54; Pulse 88; Resp 22; Pulse Ox 94% on 45% BiPAP; lp1 00:15 Temp 98.5(O); lp1 06 20:15 Body Mass Index 25.02 (70.31 kg, 167.64 cm) lp1 MDM: 11/02 20:42 Patient medically screened. pm1 21:00 Counseling: I had a detailed discussion with the patient and/or guardian regarding: the pm1 historical points, exam findings, and any diagnostic results supporting the discharge/admit diagnosis, the need for further work-up and treatment in the hospital. 21:23 Data reviewed: vital signs. Data interpreted: Pulse oximetry: on Bipap is 95 %. pm1 Interpretation: acceptable. 21:24 Physician consultation: Main PERALES regarding admission, patient's condition, and pm1 will see patient in ED. 11/02 20:22 Order name: ABG; Complete Time: 22:50 pm1 11/02 20:22 Order name: Amylase, Serum pm1 11/02 20:22 Order name: Basic Metabolic Panel pm1 11/02 20:22 Order name: Blood Culture Adult (2) pm1 11/02 20:22 Order name: CBC with Diff; Complete Time: 22:50 pm1 11/02 20:22 Order name: Ckmb; Complete Time: 22:50 pm1 11/02 20:22 Order name: CPK; Complete Time: 22:50 pm1 11/02 20:22 Order name: Lactate; Complete Time: 21:31 pm1 11/02 20:22 Order name: LFT's; Complete Time: 22:50 pm1 11/02 20:22 Order name: Lipase; Complete Time: 22:50 pm1 11/02 20:22 Order name: Procalcitonin; Complete Time: 22:50 pm1 11/02 20:22 Order name: Protime (+inr); Complete Time: 21:11 pm11/02 20:22 Order name: Ptt, Activated; Complete Time: 21:11 pm11/02 20:22 Order name: Troponin (emerg Dept Use Only); Complete Time: 22:50 pm1 11/02 20:22 Order name: Urine Microscopic Only 11/02 20:22 Order name: Chest Single View XRAY; Complete Time: 20:45 pm1 11/02 20:22 Order name: BIPAP 11/02 20:23 Order name: Amylase; Complete Time: 22:50 EDMS 11/02 20:23 Order name: Basic Metabolic Panel; Complete Time: 22:50 EDMS 11/02 20:24 Order name: Flu; Complete Time: 21:33 pm1 11/02 20:51 Order name: Manual Differential; Complete Time: 22:50 EDMS 12 21:26 Order name: Magnesium 11/02 21:36 Order name: Magnesium; Complete Time: 22:50 EDMS 12 22:37 Order name: SARS-COV-2 RT PCR; Complete Time: 22:50 EDMS 11/02 20:22 Order name: Accucheck; Complete Time: 20:51 pm11/02 20:22 Order name: Cardiac monitoring; Complete Time: 20:51 pm11/02 20:22 Order name: EKG - Nurse/Tech; Complete Time: 20:51 pm11/02 20:22 Order name: IV Saline Lock - Large Bore; Complete Time: 20:51 pm11/02 20:22 Order name: Labs collected and sent; Complete Time: 20:51 pm11/02 20:22 Order name: O2 Per Protocol; Complete Time: 20:51 pm11/02 20:22 Order name: O2 Sat Monitoring; Complete Time: 20:59 pm1 Administered Medications: 20:45 Drug: NS 0.9% (30 ml/kg) 30 ml/kg Route: IV; Rate: bolus; Site: left forearm; lp1 21:54 Follow up: IV Status: Completed infusion; IV Intake: 1109ml lp1 20:45 Drug: Rocephin (cefTRIAXone) 1 grams Route: IV; Rate: calculated rate; Site: left lp1 forearm; 21:54 Follow up: IV Status: Completed infusion; IV Intake: 10ml lp1 21:45 Drug: AZITHromycin 500 mg Route: IVPB; Infused Over: 1 hrs; Site: right antecubital; lp1 22:45 Follow up: Response: No adverse reaction; IV Status: Completed infusion; IV Intake: rr5 250ml 21:45 Drug: Potassium Chloride 20 mEq Route: IV; Rate: calculated rate; Site: left forearm; lp1 23:52 Follow up: Response: No adverse reaction; IV Status: Completed infusion; IV Intake: rr5 100ml 21:50 Drug: Lovenox (enoxaparin) 1 mg/kg Route: Sub-Q; Site: left lower abdomen; lp1 22:48 Follow up: Response: No adverse reaction lp1 22:01 Not Given (Physician Discretion): Aspirin Chewable Tablet 324 mg PO once; 81 mg tablets lp1 x 4 22:01 Drug: Aspirin 325 mg Route: PO; lp1 23:52 Follow up: Response: No adverse reaction rr5 Disposition: 11/03 02:35 Co-signature as Attending Physician, Johnie Painting MD. [email or web address] Disposition: 11/02/20 21:25 Hospitalization ordered by Kunal Carnes for Inpatient Admission. Preliminary diagnosis is Chronic obstructive pulmonary disease with (acute) exacerbation. - Bed requested for Telemetry/MedSurg (Inpatient). - Status is Inpatient Admission. rr5 - Condition is Stable. - Problem is new. - Symptoms have improved. Signatures: Dispatcher [employer] EDAK Sobia Mccollum RN RN lp1 Main [place], NURSING EDUCATION SPECIALIST-C NURSING EDUCATION SPECIALIST-Cla1 Rosi James RN RN cg Jay Hemphill, CAMERA ASSEMBLER CAMERA ASSEMBLER pm1 Kunal Plascencia RN RN rr5 Johnie Painting MD MD 7 Corrections: (The following items were deleted from the chart) 11/02 21:36 21:27 Magnesium ordered. EDAK EDMS 21:39 20:24 CORONAVIRUS+MR.LAB.BRZ ordered. EDAK EDMS 23:48 21:25 Hospitalization Ordered by Kunal Carnes MD for Inpatient Admission. Preliminary cg diagnosis is Chronic obstructive pulmonary disease with (acute) exacerbation. Bed requested for Telemetry/MedSurg (Inpatient). Status is Inpatient Admission. Condition is Stable. Problem is new. Symptoms have improved. pm1 11/03 00:24 11/02 23:48 11/02/2020 21:25 Hospitalization Ordered by Kunal Carnes MD for Inpatient rr5 Admission. Preliminary diagnosis is Chronic obstructive pulmonary disease with (acute) exacerbation. Bed requested for Telemetry/MedSurg (Inpatient). Status is Inpatient Admission. Condition is Stable. Problem is new. Symptoms have improved. cg
[2020-11-02 21:38] LABS: Blood Morphology Comment NOT SEEN (NOT SEEN); Platelet Estimate ADEQ
[2020-11-02 21:47] LABS: Arterial Blood Carboxyhemoglob 1.6 % (0-1.5); Blood Gas Oxyhemoglobin 92.5 % (94-97); Blood O2 Saturation 94.9 % (92-98.5)
[2020-11-02] MEDS ORDERED: AZITHROMYCIN 500 MG INJ IVPB ONE (21:58)
[2020-11-02] MEDS ORDERED: KCL 20 MEQ/100 mL IVPB 20 MEQ/100 ML BAG IV ONE (21:59)
[2020-11-02] MEDS ORDERED: ASPIRIN 81 MG CHEWABLE TABLET ONE (21:59)
[2020-11-02] MEDS ORDERED: NA CHLORIDE 0.9% 250 ML ONE (21:59)
[2020-11-02] MEDS ORDERED: ENOXAPARIN 80 MG/0.8 ML SQ ONE (21:59)
[2020-11-02] MEDS ORDERED: ASPIRIN EC 325 MG TABLET PO ONE (22:20)
--- NOTE | 2020-11-02 23:32 | P.HP ---
Certification for Inpatient Patient admitted to: Inpatient With expected LOS: >2 Midnights Patient will require the following post-hospital care: None Practitioner: I am a practitioner with admitting privileges, knowledge of patient current condition, hospital course, and medical plan of care. Services: Services provided to patient in accordance with Admission requirements found in Title 42 Section 412.3 of the Code of Federal Regulations Patient History Date of Service: 11/02/20 Reason for admission: COPD exacerbation History of Present Illness: 85-year-old female with history of COPD on home oxygen therapy, hypertension presents emergency department for respiratory distress. Patient was placed on CPAP by EMS, upon arrival to the emergency department patient still dyspneic, tachypneic. Patient evaluated in the emergency department, labs significant for white blood cell count 14 with left shift potassium 3.0 lactic acid 2.5 troponin 0.13 pro calcitonin 0.32 chest x-ray with severe interstitial lung disease but no focal consolidations noted. ED provider wishes to admit for respiratory failure, fever, COPD exacerbation. When I saw the patient in the ER he is awake, alert, oriented x3, patient breathing well on BiPAP at this time, patient does not appear septic at this time. Will admit for further evaluation and management. Allergies No Known Allergies Allergy (Verified 08/06/19 02:11) Home Medications: Albuterol Sulfate [Proair Respiclick] 1 puff IH DAILY 08/06/19 Amlodipine [Norvasc*] 10 mg PO DAILY 08/06/19 Fluticasone/Vilanterol [Breo Ellipta 200-25 Mcg INH] 1 each IH DAILY 08/06/19 Hydralazine [Apresoline*] 25 mg PO BID 08/06/19 Losartan Potassium 100 mg PO BID 08/06/19 Metoprolol Tartrate 50 mg PO BID 08/06/19 Pantoprazole [Protonix Tab*] 40 mg PO DAILY 08/06/19 Simvastatin 80 mg PO DAILY 08/06/19 Tamsulosin [Flomax*] 0.4 mg PO DAILY 08/06/19 Tiotropium [place] [Spiriva Respimat] 2 puff IH DAILY 08/06/19 Spironolactone [Aldactone*] 25 mg PO BID #60 tab 08/10/19 levoFLOXacin [Levaquin*] 500 mg PO DAILY #5 tab 08/10/19 predniSONE [Deltasone*] 10 mg PO BID #20 tab 08/10/19 - Past Medical/Surgical History Diabetic: No -: hypertension -: Copd -: Coronary artery disease -: Cardiac catheterization with stent placement Psychosocial/ Personal History: Patient lives at home with son - Family History Family History: Reviewed- Non-Contributory - Social History Smoking Status: Former smoker Alcohol use: Yes CD- Drugs: No Caffeine use: Yes Place of Residence: Home Review of Systems 10-point ROS is otherwise unremarkable General: Weakness, Malaise Respiratory: Cough, Shortness of Breath, SOB with Excertion, Sputum, Wheezing Cardiovascular: As per HPI Physical Examination - Physical Exam General: Alert, In no apparent distress, Oriented x3 HEENT: Atraumatic, PERRLA, Mucous membr. moist/pink Neck: Supple, 2+ carotid pulse no bruit, No LAD Respiratory: Other (Dyspnea, tachypneic, expiratory wheezing) Cardiovascular: Regular rate/rhythm, Normal S1 S2 Gastrointestinal: Normal bowel sounds, No tenderness Musculoskeletal: No tenderness Integumentary: No rashes Neurological: Normal speech, Normal strength at 5/5 x4 extr, Normal tone, Normal affect - Studies Laboratory Data (last 24 hrs) 11/02/20 21:26: Magnesium Cancelled 11/02/20 20:35: PT 14.9 H, INR 1.29, APTT 28.8 11/02/20 20:35: WBC 14.00 H, Hgb 13.9, Hct 41.9, Plt Count 251 11/02/20 20:35: Sodium 141, Potassium 3.0 L, BUN 18, Creatinine 1.01, Glucose 180 H, Magnesium 2.0, Total Bilirubin 1.2 H, AST 37, ALT 31, Alkaline Phosphatase 70, Amylase 23 L, Lipase 53 L Microbiology Data (last 24 hrs): 11/02/20 20:42 Nasopharnyx Influenza Type A Antigen Screen - Final 11/02/20 20:42 Nasopharnyx Influenza Type B Antigen Screen - Final Assessment and Plan - Plan Assessment Acute on chronic hypoxic respiratory failure secondary to COPD with exacerbation-on home oxygen therapy NSTEMI with history of CAD Hypertension Plan Acute on chronic hypoxic respiratory failure secondary to COPD with exacerbation-on home oxygen therapy: Continue with scheduled nebs, IV steroids, inhalers, p.r.n. BiPAP. Pulmonology consulted, patient white blood cell count elevated pro calcitonin mildly elevated will cover for possible pneumonia with Rocephin/Zithromax. DVT prophylaxis with full-dose Lovenox due to elevated troponin. NSTEMI with history of CAD: Monitor on telemetry, trend troponins, patient denies any chest pain, suspect demand ischemia/hypoxia. Cardiology consulted. Full-dose Lovenox. Hypertension: Obtain and continue medications. Discharge Plan: Home Plan to discharge in: 48 Hours - Advance Directives Does patient have a Living Will: No Does patient have a Durable POA for Healthcare: No - Code Status/Comfort Care Code Status Assessed: Yes (Full code) Critical Care: No Time Spent Managing Pts Care (In Minutes): 55
[2020-11-03 00:51] VITALS: BMI 25.4
[2020-11-03] MEDS ORDERED: ACETAMINOPHEN 500 MG TAB PO PRN (01:17)
[2020-11-03] MEDS ORDERED: ONDANSETRON 4 MG/2 ML VIAL IV PRN (01:17)
[2020-11-03] MEDS: ALBUTEROL 2.5 MG/3 ML NEB SOL NEB SCH ×3 (01:30→13:50)
[2020-11-03] MEDS: IPRATROPIUM BROM 0.5MG/2.5ML NEB SCH ×4 (01:30→20:30)
[2020-11-03] MEDS: METHYLPREDNISOLONE 40 MG INJ IV SCH ×4 (01:47→17:21)
[2020-11-03 04:54] LABS: Absolute Lymphocytes (CBC) 0.3 K/uL (0.7-4.9); Basophils % 0.1 % (0-1.3); Hematocrit 41.1 % (39.6-49.0); Lymphocytes % 3.2 % (15.3-44.8); MPV 9.7 fL (7.6-11.3); RBC Red Blood Cell Count 4.51 M/uL (4.33-5.43)
[2020-11-03 05:11] LABS: ALT/SGPT 32 U/L (12-78); AST/SGOT 34 U/L (15-37); Albumin 2.2 g/dL (3.4-5.0); Alkaline Phosphatase 65 U/L (45-117); BUN Blood Urea Nitrogen 16 mg/dL (7-18); Bicarbonate 20 mmol/L (21-32); Bilirubin Total 0.5 mg/dL (0.2-1.0); Glucose Level 218 mg/dL (74-106); HDL Cholesterol 24 mg/dL (40-60); LDL Cholesterol, Calculated 79 (<130); Magnesium 2.2 mg/dL (1.8-2.4); Potassium 3.2 mmol/L (3.5-5.1); Protein, Total 6.4 g/dL (6.4-8.2); Sodium Level 144 mmol/L (136-145); Thyroid Stimulating Hormone 0.565 uIU/mL (0.360-3.740)
[2020-11-03] MEDS: PANTOPRAZOLE 40MG TABLET PO SCH (05:46)
[2020-11-03] MEDS ORDERED: POTASSIUM CL SA 10 MEQ TAB PO ONE ×2 (06:00→12:51)
[2020-11-03 07:19] LABS: Blood Gas Oxyhemoglobin 94.3 % (94-97); Blood O2 Saturation 96.3 % (92-98.5)
--- NOTE | 2020-11-03 08:22 | RAD REPORT ---
EXAM DESCRIPTION: CT - Chest For Pe Angio - 11/03/2020 8:08 am CLINICAL HISTORY: Chest pain. r/o PE COMPARISON: <Comparisons> TECHNIQUE: CT angiogram of the pulmonary arteries was performed with MIP. All CT scans are performed using dose optimization technique as appropriate and may include automated exposure control or mA/KV adjustment according to patient size. FINDINGS: No evidence of pulmonary thromboembolism. No acute aortic finding demonstrated. Advanced COPD is present. Airspace infiltrate is present right base most compatible pneumonia. Small bilateral pleural effusions. No concerning bony finding. IMPRESSION: No evidence of pulmonary thromboembolism. Advanced COPD. Moderate right base airspace opacification most compatible with pneumonia.
[2020-11-03] MEDS: LOSARTAN POTASSIUM 50 MG TABLET PO SCH (08:48)
[2020-11-03] MEDS: ENOXAPARIN 80 MG/0.8 ML SQ SCH ×2 (08:48→20:27)
[2020-11-03] MEDS: ASPIRIN EC 81 MG TAB PO SCH (08:49)
[2020-11-03] MEDS: METOPROLOL TAR 50 MG TAB PO SCH ×2 (08:50→20:24)
[2020-11-03] MEDS: TAMSULOSIN 0.4 MG SR CAP PO SCH (08:50)
[2020-11-03] MEDS: HYDRALAZINE HCL 25 MG TABLET PO SCH ×2 (08:50→20:24)
[2020-11-03] MEDS: AMLODIPINE 10 MG TAB PO SCH (08:50)
[2020-11-03] MEDS: TIOTROPIUM 5 SPRAYS/INHALER IH SCH (08:51)
[2020-11-03] MEDS: DULERA 200/5 (MOMETASONE/FORMOTEROL) INHALER IH SCH ×2 (08:51→21:00)
[2020-11-03] MEDS ORDERED: HOME MED 1 EA UNK (Losartan Potassium [Losartan Potassium] 100 MG Tablet) PO SCH (09:00)
[2020-11-03] MEDS ORDERED: HOME MED 1 EA UNK (Fluticasone/Vilanterol [Breo Ellipta 200-25 Mcg Inh] Blst.W.Dev) IH SCH (09:00)
[2020-11-03] MEDS ORDERED: HOME MED 1 EA UNK (Albuterol Sulfate [Proair Respiclick] 90 MCG Aer.Pow.Ba) IH SCH (09:00)
[2020-11-03] MEDS ORDERED: CEFTRIAXONE 1 GM/NS 50 ML 1 GM/50 ML BAG IV SCH (09:00)
--- NOTE | 2020-11-03 10:58 | P.PN ---
Subjective Date of Service: 11/03/20 Chief Complaint: COPD exacerbation Subjective: Improving (feels better, but requriing high levels of oxygen. heart rate went up to 110-120s) Review of Systems 10-point ROS is otherwise unremarkable Physical Examination - Vital Signs Temperature: 97.6 F Blood Pressure: 149/78 Pulse: 91 Respirations: 19 Pulse Ox (%): 90 - Studies Laboratory Data (last 24 hrs) 11/02/20 21:26: Magnesium Cancelled 11/02/20 20:35: PT 14.9 H, INR 1.29, APTT 28.8 11/02/20 20:35: WBC 14.00 H, Hgb 13.9, Hct 41.9, Plt Count 251 11/02/20 20:35: Sodium 141, Potassium 3.0 L, BUN 18, Creatinine 1.01, Glucose 180 H, Magnesium 2.0, Total Bilirubin 1.2 H, AST 37, ALT 31, Alkaline Phosphatase 70, Amylase 23 L, Lipase 53 L Microbiology Data (last 24 hrs): 11/02/20 20:42 Nasopharnyx Influenza Type A Antigen Screen - Final 11/02/20 20:42 Nasopharnyx Influenza Type B Antigen Screen - Final Assessment & Plan Physician Review Additional Text: Physical Exam General: Alert, In no apparent distress, Oriented x3 HEENT: BIPAP mask in place Respiratory: tachycardia, BIPAP in place, nonlabored, no wheeze, diminished at bases bilaterally Cardiovascular: irregularly irregular rhythm, HR: 100, no murmur Gastrointestinal: soft, nontender, nondistended Musculoskeletal: No tenderness Integumentary: No rashes Problem List Acute on chronic hypoxic respiratory failure secondary to COPD with exacerbation-on home oxygen therapy NSTEMI with history of CAD Hypertension -repeat ABG this AM, CO2 low on prior, can likely come off BIPAP, was hypoxemic on prior ABG -will obtain CTA to r/o PE - pt with tachycardia and hypoxia -no wheeze on exam, lungs sound tight, diminished air movement -procal mildly elevated and leukocytosis - cover for Pneumonia, CT will get better picture as well -cardio consulted, ?afib on telemetry, obtain EKG, trend trop, pt denies history of arrhythmia, therapeutic lovenox VTE: therapeutic lovenox Code: full Dispo: anticipate dc home in ~48hrs Time Spent Managing Pts Care (In Minutes): 35
--- NOTE | 2020-11-03 19:52 | CON ---
Date of Consultation: 11/03/2020 Reason For Consultation: Elevated troponin. 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 Routine blood work showed troponin 0.13. Patient denies having any chest pain, is k nown to have a severe interstitial lung disease and COPD and the patient has a history of coronary ar beth disease status post cardiac stents many years ago. Follows up with Cardiology. Past Medical History: As outlined above in HPI. Medications: Refer to reconciliation sheet for detailed list. Allergies: NO KNOWN DRUG ALLERGIES. Family History: No mature coronary artery disease or cancer. Social History: He currently does not smoke or drink or use any drugs. Review of Systems: All systems reviewed and they were negative except what mentioned in the HPI. Physical Examination: Vital Signs: Temperature is 97.5, pulse 89, breathing at 18-20, blood pressure is 149/74, saturating 95% with high-flow oxygen. General: This is an elderly male, appears slightly short of breath. Head and Neck: Pupils are equal, reactive to light. Intact eye movements. No JVD. No cervical lym phadenopathy. Neck: Supple. Thyroid is not enlarged. Lungs: Diffuse wheezing bilaterally with rhonchi. No accessory muscle use or muscle retraction. Heart: Regular rate and rhythm. No extra sounds. Abdomen: Soft, nontender. Bowel sounds positive. No organomegaly. No tenderness to rebound. Extremities: No clubbing, cyanosis. Intact pulses. Skin: No rash was noted. Alert, awake, oriented x3. No acute events appreciated. Investigations: Creatinine 0.76. Troponin 0[place] [address]. CTA of the chest showed no PE, but there is a moderate right airspace disease suggestive of pneumonia. Assessment And Recommendations: 1.Elevated troponin, likely due to demand ischemia. Please trend the troponin for 2 more sets and o btain an echocardiogram and continue aspirin. Further recommendation based on the echo results. 2.Acute respiratory failure due to chronic obstructive pulmonary disease exacerbation. SR/MODL Voice ID: [id number] Report ID: [id number]
[2020-11-03 20:06] LABS: Urine Appearance CLEAR (Clear); Urine Bilirubin NEGATIVE (Negative); Urine Blood NEGATIVE (Negative); Urine Color YELLOW (Yellow); Urine Glucose TRACE (Negative); Urine Protein 1+ (Negative); Urine Specific Gravity >=1.030 (1.005-1.030)
[2020-11-03 20:09] LABS: Urine Microscopic Reflex ORDER UMIC
[2020-11-03] MEDS: ATORVASTATIN 40 MG TAB PO SCH (20:24)
[2020-11-03 20:25] LABS: Urine Bacteria <20 /HPF (NONE SEEN); Urine RBC NONE SEEN /HPF (NONE SEEN)
[2020-11-03] MEDS: LEVALBUTEROL 1.25 MG/3 ML NEB NEB SCH (20:30)
[2020-11-03] MEDS ORDERED: CEFTRIAXONE/SWI 1gm 1 GM/10 ML SYR IVP SCH (21:00)
[2020-11-03] MEDS ORDERED: AZITHROMYCIN IV 500 MG in NA CHLORIDE 0.9% 250 ML IVPB SCH (21:00)
[2020-11-04] MEDS: METHYLPREDNISOLONE 40 MG INJ IV SCH ×3 (00:19→20:32)
[2020-11-04] MEDS: LEVALBUTEROL 1.25 MG/3 ML NEB NEB SCH ×4 (01:35→19:25)
[2020-11-04] MEDS: IPRATROPIUM BROM 0.5MG/2.5ML NEB SCH ×4 (01:35→19:25)
[2020-11-04 04:05] LABS: Absolute Lymphocytes (CBC) 0.5 K/uL (0.7-4.9); Basophils % 0.1 % (0-1.3); Hematocrit 38.1 % (39.6-49.0); Lymphocytes % 4.3 % (15.3-44.8); MPV 9.1 fL (7.6-11.3); RBC Red Blood Cell Count 4.28 M/uL (4.33-5.43)
[2020-11-04 04:23] LABS: ALT/SGPT 37 U/L (12-78); AST/SGOT 34 U/L (15-37); Albumin 2.3 g/dL (3.4-5.0); Alkaline Phosphatase 63 U/L (45-117); BUN Blood Urea Nitrogen 18 mg/dL (7-18); Bicarbonate 22 mmol/L (21-32); Bilirubin Total 0.4 mg/dL (0.2-1.0); Glucose Level 170 mg/dL (74-106); Magnesium 2.2 mg/dL (1.8-2.4); Potassium 3.6 mmol/L (3.5-5.1); Protein, Total 6.3 g/dL (6.4-8.2); Sodium Level 146 mmol/L (136-145)
[2020-11-04] MEDS ORDERED: POTASSIUM CL SA 10 MEQ TAB PO ONE (05:31)
[2020-11-04] MEDS: PANTOPRAZOLE 40MG TABLET PO SCH (06:06)
--- NOTE | 2020-11-04 06:45 | P.PN ---
Subjective Date of Service: 11/04/20 Chief Complaint: COPD exacerbation Subjective: Improving (still requiring hfnc, feels "a lot" better than when he came in. denies chest pain) Review of Systems 10-point ROS is otherwise unremarkable Physical Examination - Vital Signs Temperature: 98.0 F Blood Pressure: 150/69 Pulse: 97 Respirations: 16 Pulse Ox (%): 92 Assessment & Plan Physician Review Additional Text: Physical Exam General: Alert, Oriented x3 HEENT: normal conjunctiva, sclera anicteric Respiratory: on HFNC, diffuse wheeze bilaterally, rhonchi at R base, nonlabored on HFNC Cardiovascular: regular rate/rhythm, no murmur Gastrointestinal: soft, nontender, nondistended Musculoskeletal: No tenderness Integumentary: No rashes Problem List Acute on chronic hypoxic respiratory failure secondary to COPD with exacerbation-on home oxygen therapy Community acquired pneumonia NSTEMI with history of CAD Hypertension -repeat ABG, hypoxemia, CO2 low, BIPAP dc'd on 11/03 -still requiring HFNC -reports baseline O2 is 4L NC over last few weeks-months -CTA negative yesterday for PE, +pneumonia -continue rocephin, azithro for pneumonia, mild elevated procal -pulm consulted -cardio consulted, ?afib on telemetry, trend trop, pt denies history of arrhythmia, therapeutic lovenox -echo ordered VTE: therapeutic lovenox Code: full Dispo: anticipate dc home in ~48hrs Time Spent Managing Pts Care (In Minutes): 35
[2020-11-04] MEDS: ENOXAPARIN 80 MG/0.8 ML SQ SCH (07:41)
[2020-11-04] MEDS: LOSARTAN POTASSIUM 50 MG TABLET PO SCH (07:41)
[2020-11-04] MEDS: DULERA 200/5 (MOMETASONE/FORMOTEROL) INHALER IH SCH ×2 (07:41→20:34)
[2020-11-04] MEDS: TAMSULOSIN 0.4 MG SR CAP PO SCH (07:41)
[2020-11-04] MEDS: HYDRALAZINE HCL 25 MG TABLET PO SCH ×2 (07:42→20:33)
[2020-11-04] MEDS: TIOTROPIUM 5 SPRAYS/INHALER IH SCH (07:42)
[2020-11-04] MEDS: ASPIRIN EC 81 MG TAB PO SCH (07:42)
[2020-11-04] MEDS: METOPROLOL TAR 50 MG TAB PO SCH ×2 (07:42→20:32)
[2020-11-04] MEDS: AMLODIPINE 10 MG TAB PO SCH (07:42)
[2020-11-04] MEDS ORDERED: METHYLPREDNISOLONE 125 MG INJ IV SCH (12:00)
[2020-11-04] MEDS ORDERED: SPIRONOLACTONE 25 MG TABLET PO SCH (17:00)
--- NOTE | 2020-11-04 17:00 | P.CNS ---
Date of Consult: 11/04/20 Reason for Consult: COPD exacerbation Chief Complaint: COPD exacerbation History of Present Illness: Patient is 85 years of age male known to me with a history of COPD has been getting progressively worse worse of the past week increasing dyspnea cough shortness of breath came into the hospital hypoxic he has a BiPAP on the bedside is currently on high-flow oxygen compliant with this therapy denies any fever chills or lower extremity edema Allergies No Known Allergies Allergy (Verified 11/03/20 04:41) Home Medications: Albuterol Sulfate [Proair Respiclick] 1 puff IH DAILY 08/06/19 Amlodipine [Norvasc*] 10 mg PO DAILY 08/06/19 Fluticasone/Vilanterol [Breo Ellipta 200-25 Mcg INH] 1 each IH DAILY 08/06/19 Hydralazine [Apresoline*] 25 mg PO BID 08/06/19 Losartan Potassium 100 mg PO BID 08/06/19 Metoprolol Tartrate 50 mg PO BID 08/06/19 Pantoprazole [Protonix Tab*] 40 mg PO DAILY 08/06/19 Simvastatin 80 mg PO DAILY 08/06/19 Tamsulosin [Flomax*] 0.4 mg PO DAILY 08/06/19 Tiotropium [place] [Spiriva Respimat] 2 puff IH DAILY 08/06/19 Aspirin [Tariq Chewable Aspirin] 81 mg PO DAILY 11/03/20 - Past Medical/Surgical History Diabetic: No -: hypertension -: Copd -: Coronary artery disease -: HLD -: Cardiac catheterization with stent placement Psychosocial/ Personal History: Patient lives at home with son - Social History Alcohol use: Yes CD- Drugs: No Caffeine use: Yes Place of Residence: Home Review of Systems 10-point ROS is otherwise unremarkable General: Weakness Respiratory: Cough, Shortness of Breath Physical Examination Temp Pulse Resp BP Pulse Ox 98.0 F 97 H 16 150/69 H 92 11/04/20 13:29 11/04/20 13:29 11/04/20 13:29 11/04/20 13:29 11/04/20 13:29 General: Alert, Mild distress Respiratory: Crackles/rales, Expiratory wheezes Cardiovascular: No edema, Regular rate/rhythm, Normal S1 S2 Gastrointestinal: Normal bowel sounds, Soft and benign - Problems (1) COPD exacerbation Onset Date: 10/28/15 Current Visit: No Status: Acute Plan: Patient is 85 years of age well known to me with a history of COPD admitted with an exacerbation labs reviewed no evidence of active ongoing sepsis CO2 level is normal mild pneumonia on the right side no evidence of thromboembolism medication list reviewed change to p.o. levofloxacin is got minimal infiltrate at the right base reduce dose of Solu-Medrol DVT prophylax
[2020-11-04] MEDS: levoFLOXacin 750 MG TAB PO SCH (17:10)
[2020-11-04] MEDS: ENOXAPARIN 40 MG/0.4 ML SQ SCH (17:11)
[2020-11-04] MEDS: ATORVASTATIN 40 MG TAB PO SCH (20:33)
[2020-11-04 21:50] LABS: Arterial Blood Carboxyhemoglob 0.9 % (0-1.5); Blood Gas Oxyhemoglobin 91.1 % (94-97); Blood O2 Saturation 92.9 % (92-98.5)
[2020-11-04] MEDS ORDERED: LORazepam 2 MG/ML VIAL IV ONE (22:13)
[2020-11-05] MEDS: IPRATROPIUM BROM 0.5MG/2.5ML NEB SCH ×2 (02:00→07:52)
[2020-11-05] MEDS: LEVALBUTEROL 1.25 MG/3 ML NEB NEB SCH ×4 (02:00→20:00)
[2020-11-05 04:02] LABS: Absolute Lymphocytes (CBC) 0.4 K/uL (0.7-4.9); Basophils % 0.1 % (0-1.3); Hematocrit 38.4 % (39.6-49.0); Lymphocytes % 4.1 % (15.3-44.8); MPV 9.1 fL (7.6-11.3); RBC Red Blood Cell Count 4.24 M/uL (4.33-5.43)
[2020-11-05 04:20] LABS: ALT/SGPT 35 U/L (12-78); AST/SGOT 23 U/L (15-37); Albumin 2.1 g/dL (3.4-5.0); Alkaline Phosphatase 55 U/L (45-117); BUN Blood Urea Nitrogen 20 mg/dL (7-18); Bicarbonate 25 mmol/L (21-32); Bilirubin Total 0.4 mg/dL (0.2-1.0); Glucose Level 147 mg/dL (74-106); Magnesium 2.2 mg/dL (1.8-2.4); Potassium 3.8 mmol/L (3.5-5.1); Protein, Total 5.9 g/dL (6.4-8.2); Sodium Level 151 mmol/L (136-145)
[2020-11-05] MEDS: PANTOPRAZOLE 40MG TABLET PO SCH (05:54)
[2020-11-05] MEDS: ASPIRIN EC 81 MG TAB PO SCH (08:39)
[2020-11-05] MEDS: LOSARTAN POTASSIUM 50 MG TABLET PO SCH (08:39)
[2020-11-05] MEDS: HYDRALAZINE HCL 25 MG TABLET PO SCH ×2 (08:39→20:03)
[2020-11-05] MEDS: levoFLOXacin 750 MG TAB PO SCH (08:40)
[2020-11-05] MEDS: TAMSULOSIN 0.4 MG SR CAP PO SCH (08:41)
[2020-11-05] MEDS: METOPROLOL TAR 50 MG TAB PO SCH ×2 (08:41→20:02)
[2020-11-05] MEDS: AMLODIPINE 10 MG TAB PO SCH (08:41)
[2020-11-05] MEDS: METHYLPREDNISOLONE 40 MG INJ IV SCH (08:41)
[2020-11-05] MEDS: ENOXAPARIN 40 MG/0.4 ML SQ SCH (08:41)
[2020-11-05] MEDS: TIOTROPIUM 5 SPRAYS/INHALER IH SCH (08:42)
[2020-11-05] MEDS: DULERA 200/5 (MOMETASONE/FORMOTEROL) INHALER IH SCH ×2 (08:42→20:10)
[2020-11-05] MEDS ORDERED: POTASSIUM CL SA 10 MEQ TAB PO ONE (09:00)
--- NOTE | 2020-11-05 09:16 | ECHO ---
HEIGHT: 5 ft 3 in WEIGHT: 143 lb 14.4 oz DATE OF STUDY: 11/04/[address]: Kunal Carnes MD 2-DIMENSIONAL: YES M.MODE: YES DOPPLER: YES COLOR FLOW: YES TDS: NO PORTABLE: NO DEFINITY: NO BUBBLE STUDY: NO DIAGNOSIS: HYPOXIA CARDIAC HISTORY: CATHERIZATION: SURGERY: PROSTHETIC VALVE: PACEMAKER: MEASUREMENTS (cm) DIASTOLIC (NORMALS) SYSTOLIC (NORMALS) IVSd 1.0 (0.6-1.2) LA Diam 3.3 (1.9-4.0) LVEF 55-60% LVIDd 4.0 (3.5-5.7) LVIDs 2.4 (2.0-3.5) %FS 39% LVPWd 1.2 (0.6-1.2) Ao Diam 3.0 (2.0-3.7) 2 DIMENSIONAL ASSESSMENT: RIGHT ATRIUM: NORMAL LEFT ATRIUM: NORMAL RIGHT VENTRICLE: NORMAL LEFT VENTRICLE: NORMAL TRICUSPID VALVE: MITRAL VALVE: PULMONIC VALVE: AORTIC VALVE: NORMAL PERICARDIAL EFFUSION: NONE AORTIC ROOT: NORMAL LEFT VENTRICULAR WALL MOTION: NORMAL DOPPLER/COLOR FLOW: SEE BELOW COMMENTS: NORMAL LEFT VENTRICULAR EJECTION FRACTION 55-60% WITH NORMAL WALL MOTION. MODERATE DIASTOLIC DYSFUNCTION. SEVERE PULMONARY HYPERTENSION WITH RIGHT VENTRICULAR SYSTOLIC PRESSURE >60 mmHg. MILD TRICUSPID, AORTIC, MITRAL AND PULMONARY REGURGITATION. TECHNOLOGIST: Altagracia MERINO
--- NOTE | 2020-11-05 12:35 | P.PN ---
Subjective Date of Service: 11/05/20 Chief Complaint: Respiratory failure Subjective: Improving (Patient is improving is a little paranoid [place] having some delusions feeling very weak) Review of Systems General: Weakness Respiratory: Shortness of Breath Physical Examination - Vital Signs Temperature: 97.8 F Blood Pressure: 160/70 Pulse: 84 Respirations: 18 Pulse Ox (%): 91 - Physical Exam General: Alert, Oriented x3 Respiratory: Friction rub, Expiratory wheezes Cardiovascular: Regular rate/rhythm, Normal S1 S2 Assessment & Plan - Problems (Diagnosis) (1) COPD exacerbation Onset Date: 10/28/15 Current Visit: No Status: Acute Plan: Patient still continues to remain very hypoxic he is on high-flow 75% hypoxic hypocapneic with respiratory alkalosis also has hypernatremia Dc spironolactone echocardiogram is pending no clinical evidence of sepsis recommend LTAC change to p.o. prednisone troponins are mildly elevated patient is diastolic dysfunction on echo chest x-ray ordered
--- NOTE | 2020-11-05 13:43 | RAD REPORT ---
EXAM DESCRIPTION: RAD - Chest Single View - 11/05/2020 1:32 pm CLINICAL HISTORY: Respiratory failure COMPARISON: CT chest November 03, portable chest November 02 TECHNIQUE: AP portable chest image was obtained 11/05/2020 1:32 pm . FINDINGS: Baseline fibrotic lung changes are present. Emphysematous changes of the upper lobes are n oted in the patient has extensive bilateral calcified pleural plaquing change. Left lung field is not clearly different from comparison. Lung volumes are reduced compared to the November 02 portable study a ccentuating the lower lung field on the right. Heart and vasculature are normal. No pneumothorax. Costophrenic angle blunting is present. No acute bony abnormality seen. No acute aortic findings suspected. IMPRESSION: Extensive parenchymal fibrotic change and calcified pleural plaquing changes accentuated by low lung volumes. Lung markings are increased in the lower right lung field. This is probably shallow inspiration affec ts. However, new or progressive interstitial edema or infiltrate could be masked by the lower lung vo lumes.
--- NOTE | 2020-11-05 16:55 | P.PN ---
Subjective Date of Service: 11/05/20 Chief Complaint: Respiratory failure Patient remain on high-flow oxygen. Tolerating 75% FiO2 with 20 l/min flow. Patient seems a bit confused. He denies shortness of breath and desires to go home. Physical Examination - Vital Signs Temperature: 98.7 F Blood Pressure: 152/67 Pulse: 93 Respirations: 18 Pulse Ox (%): 90 - Physical Exam General: In no apparent distress, Oriented x2 HEENT: Mucous membr. moist/pink Neck: Supple, JVD not distended Respiratory: Diminished, Other (No crackles) Cardiovascular: Regular rate/rhythm, Normal S1 S2, No murmurs Gastrointestinal: Normal bowel sounds, Soft and benign, Non-distended, No tenderness Musculoskeletal: No swelling Integumentary: No rashes Neurological: Normal strength at 5/5 x4 extr Assessment And Plan Physician Review Additional Text: Problem List Acute on chronic hypoxic respiratory failure secondary to COPD with exacerbation-on home oxygen therapy Community acquired pneumonia NSTEMI with history of CAD Hypertension -still requiring HFNC -reports baseline O2 is 4L NC. -CTA negative yesterday for PE, +pneumonia. 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 -antibiotics changed to oral Levaquin -pulm is following -Seen by cardiology. Elevated troponin deemed secondary to demand ischemia. -echo shows normal EF and severe pulmonary hypertension. VTE: Lovenox Code: full Dispo: Option of LTAC placement being considered given patient's dependence on high-flow oxygen.
[2020-11-05] MEDS: predniSONE 20 MG TAB PO SCH (20:02)
[2020-11-05] MEDS: ATORVASTATIN 40 MG TAB PO SCH (20:03)
[2020-11-06] MEDS ORDERED: HALOPERIDOL LACT 5 MG/ML INJ IV PRN (00:29)
[2020-11-06] MEDS ORDERED: HALOPERIDOL LACT 5 MG/ML INJ ONE (00:55)
[2020-11-06] MEDS: LEVALBUTEROL 1.25 MG/3 ML NEB NEB SCH ×4 (01:45→20:50)
[2020-11-06] MEDS ORDERED: HALOPERIDOL LACT 5 MG/ML INJ IV ONE (02:21)
[2020-11-06 04:08] LABS: Absolute Lymphocytes (CBC) 0.4 K/uL (0.7-4.9); Basophils % 0.1 % (0-1.3); Hematocrit 41.7 % (39.6-49.0); Lymphocytes % 3.7 % (15.3-44.8); MPV 9.2 fL (7.6-11.3); RBC Red Blood Cell Count 4.63 M/uL (4.33-5.43)
[2020-11-06 04:19] LABS: ALT/SGPT 45 U/L (12-78); AST/SGOT 31 U/L (15-37); Albumin 2.4 g/dL (3.4-5.0); Alkaline Phosphatase 59 U/L (45-117); BUN Blood Urea Nitrogen 20 mg/dL (7-18); Bicarbonate 25 mmol/L (21-32); Bilirubin Total 0.7 mg/dL (0.2-1.0); Glucose Level 146 mg/dL (74-106); Potassium 3.7 mmol/L (3.5-5.1); Protein, Total 6.1 g/dL (6.4-8.2); Sodium Level 145 mmol/L (136-145)
[2020-11-06 04:40] LABS: Blood Morphology Comment NOT SEEN (NOT SEEN); Platelet Estimate ADEQ
[2020-11-06] MEDS ORDERED: POTASSIUM CL SA 10 MEQ TAB PO ONE (05:00)
[2020-11-06] MEDS: PANTOPRAZOLE 40MG TABLET PO SCH (06:35)
[2020-11-06] MEDS: TAMSULOSIN 0.4 MG SR CAP PO SCH (09:17)
[2020-11-06] MEDS: ENOXAPARIN 40 MG/0.4 ML SQ SCH (09:17)
[2020-11-06] MEDS: METOPROLOL TAR 50 MG TAB PO SCH ×2 (09:17→20:21)
[2020-11-06] MEDS: HYDRALAZINE HCL 25 MG TABLET PO SCH ×2 (09:17→20:19)
[2020-11-06] MEDS: LOSARTAN POTASSIUM 50 MG TABLET PO SCH (09:17)
[2020-11-06] MEDS: levoFLOXacin 750 MG TAB PO SCH (09:17)
[2020-11-06] MEDS: predniSONE 20 MG TAB PO SCH ×2 (09:17→20:19)
[2020-11-06] MEDS: ASPIRIN EC 81 MG TAB PO SCH (09:17)
[2020-11-06] MEDS: AMLODIPINE 10 MG TAB PO SCH (09:18)
[2020-11-06] MEDS: TIOTROPIUM 5 SPRAYS/INHALER IH SCH (09:18)
[2020-11-06] MEDS: DULERA 200/5 (MOMETASONE/FORMOTEROL) INHALER IH SCH ×2 (09:18→20:21)
--- NOTE | 2020-11-06 15:59 | P.PN ---
Subjective Date of Service: 11/06/20 Chief Complaint: Respiratory failure No major changes from yesterday. Patient remain on high-flow oxygen. Tolerating 75% FiO2 with 20 l/min flow. He is more alert today. Physical Examination - Vital Signs Temperature: 97.7 F Blood Pressure: 135/65 Pulse: 70 Respirations: 18 Pulse Ox (%): 96 - Physical Exam General: In no apparent distress, Oriented x3, Other (Awake) HEENT: Mucous membr. moist/pink Neck: JVD not distended Respiratory: Diminished, Expiratory wheezes (Mild scattered wheezes.) Cardiovascular: No edema, Regular rate/rhythm, Normal S1 S2, Systolic murmur Gastrointestinal: Normal bowel sounds, Soft and benign, Non-distended, No tenderness Musculoskeletal: No swelling, No tenderness Integumentary: No rashes Neurological: Normal strength at 5/5 x4 extr Assessment And Plan Physician Review: Patient Assessed, Agree with Above Assessment and Plan Physician Review Additional Text: Problem List Acute on chronic hypoxic respiratory failure secondary to COPD with exace rbation-on home oxygen therapy Community acquired pneumonia NSTEMI with history of CAD Hypertension -patient still requiring high-flow oxygen. -reports baseline O2 is 4L NC. -CTA negative yesterday for PE, +pneumonia. 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 -continue oral Levaquin -pulm is following -Seen by cardiology. Elevated troponin deemed secondary to demand ischemia. -echo shows normal EF and severe pulmonary hypertension. VTE: Lovenox Code: full Dispo: Option of LTAC placement is being considered given patient's dependence on high-flow oxygen. Patient voiced no objection to LTAC placement.
[2020-11-06] MEDS: ATORVASTATIN 40 MG TAB PO SCH (20:20)
[2020-11-06] MEDS: QUETIAPINE 25 MG TAB PO SCH (20:20)
[2020-11-07] MEDS: LEVALBUTEROL 1.25 MG/3 ML NEB NEB SCH ×4 (02:00→19:55)
[2020-11-07] MEDS: PANTOPRAZOLE 40MG TABLET PO SCH (06:24)
[2020-11-07 06:29] LABS: BUN Blood Urea Nitrogen 17 mg/dL (7-18); Bicarbonate 28 mmol/L (21-32); Glucose Level 107 mg/dL (74-106); Potassium 3.8 mmol/L (3.5-5.1); Sodium Level 145 mmol/L (136-145)
[2020-11-07] MEDS: METOPROLOL TAR 50 MG TAB PO SCH ×2 (08:37→21:26)
[2020-11-07] MEDS: predniSONE 20 MG TAB PO SCH ×2 (08:38→21:26)
[2020-11-07] MEDS: levoFLOXacin 750 MG TAB PO SCH (08:38)
[2020-11-07] MEDS: AMLODIPINE 10 MG TAB PO SCH (08:38)
[2020-11-07] MEDS: TAMSULOSIN 0.4 MG SR CAP PO SCH (08:38)
[2020-11-07] MEDS: HYDRALAZINE HCL 25 MG TABLET PO SCH ×2 (08:38→21:26)
[2020-11-07] MEDS: ASPIRIN EC 81 MG TAB PO SCH (08:38)
[2020-11-07] MEDS: LOSARTAN POTASSIUM 50 MG TABLET PO SCH (08:38)
[2020-11-07] MEDS: ENOXAPARIN 40 MG/0.4 ML SQ SCH (08:39)
[2020-11-07] MEDS: TIOTROPIUM 5 SPRAYS/INHALER IH SCH (08:44)
[2020-11-07] MEDS: DULERA 200/5 (MOMETASONE/FORMOTEROL) INHALER IH SCH ×2 (08:44→21:27)
[2020-11-07] MEDS ORDERED: POTASSIUM CL SA 10 MEQ TAB PO ONE (09:00)
--- NOTE | 2020-11-07 15:07 | P.PN ---
Subjective Date of Service: 11/07/20 Chief Complaint: Respiratory failure Patient denies any shortness of breath. He is clinically improving. High-flow oxygen weaned down to 50% FiO2 and 15 l/min. Physical Examination - Vital Signs Temperature: 97.4 F Blood Pressure: 137/61 Pulse: 71 Respirations: 20 Pulse Ox (%): 88 - Physical Exam General: Alert, In no apparent distress, Oriented x3 HEENT: Mucous membr. moist/pink Neck: JVD not distended Respiratory: Crackles/rales (Bibasilar), Expiratory wheezes (Mild scattered rhonchi) Cardiovascular: No edema, Regular rate/rhythm, Normal S1 S2 Gastrointestinal: Normal bowel sounds, Soft and benign, Non-distended, No tenderness Musculoskeletal: No swelling Integumentary: No rashes Neurological: Normal strength at 5/5 x4 extr Assessment And Plan Physician Review: Patient Assessed, Agree with Above Assessment and Plan Physician Review Additional Text: Problem List Acute on chronic hypoxic respiratory failure secondary to COPD with exacerbation-on home oxygen therapy Community acquired pneumonia NSTEMI with history of CAD Hypertension -weaning down high-flow oxygen. -reports baseline O2 is 4L NC. -CTA negative yesterday for PE, +pneumonia. 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 -continue oral Levaquin -pulm is following -continue bronchodilators, oral prednisone. -Seen by cardiology. Elevated troponin deemed secondary to demand ischemia. -echo shows normal EF and severe pulmonary hypertension. VTE: Lovenox Code: full Dispo: Option of LTAC placement is being considered given patient's dependence on high-flow oxygen.
[2020-11-07] MEDS: QUETIAPINE 25 MG TAB PO SCH (21:26)
[2020-11-07] MEDS: ATORVASTATIN 40 MG TAB PO SCH (21:26)
[2020-11-08] MEDS: LEVALBUTEROL 1.25 MG/3 ML NEB NEB SCH ×4 (02:20→19:55)
[2020-11-08 04:29] LABS: BUN Blood Urea Nitrogen 19 mg/dL (7-18); Bicarbonate 27 mmol/L (21-32); Glucose Level 137 mg/dL (74-106); Sodium Level 142 mmol/L (136-145)
[2020-11-08] MEDS: PANTOPRAZOLE 40MG TABLET PO SCH (06:13)
[2020-11-08] MEDS: IPRATROPIUM BROM 0.5MG/2.5ML NEB PRN ×3 (09:10→19:55)
[2020-11-08] MEDS: DULERA 200/5 (MOMETASONE/FORMOTEROL) INHALER IH SCH ×2 (10:35→21:20)
[2020-11-08] MEDS: ASPIRIN EC 81 MG TAB PO SCH (10:35)
[2020-11-08] MEDS: AMLODIPINE 10 MG TAB PO SCH (10:35)
[2020-11-08] MEDS: ENOXAPARIN 40 MG/0.4 ML SQ SCH (10:35)
[2020-11-08] MEDS: METOPROLOL TAR 50 MG TAB PO SCH ×2 (10:35→21:20)
[2020-11-08] MEDS: TIOTROPIUM 5 SPRAYS/INHALER IH SCH (10:35)
[2020-11-08] MEDS: HYDRALAZINE HCL 25 MG TABLET PO SCH ×2 (10:35→21:19)
[2020-11-08] MEDS: TAMSULOSIN 0.4 MG SR CAP PO SCH (10:35)
[2020-11-08] MEDS: LOSARTAN POTASSIUM 50 MG TABLET PO SCH (10:35)
[2020-11-08] MEDS: SPIRONOLACTONE 25 MG TABLET PO SCH (11:00)
--- NOTE | 2020-11-08 11:58 | P.PN ---
Subjective Date of Service: 11/08/20 Chief Complaint: Respiratory failure with severe pulmonary hypertension Subjective: Improving (Patient is improving oxygen requirements are declining son present at the bedside patient is very weak physical therapy present at the bedside) Review of Systems General: Weakness Respiratory: Shortness of Breath Physical Examination - Vital Signs Temperature: 98.0 F Blood Pressure: 140/63 Pulse: 78 Respirations: 18 Pulse Ox (%): 92 - Physical Exam General: Alert, Mild distress Respiratory: Diminished, Expiratory wheezes Cardiovascular: No edema, Normal S1 S2 - Studies Microbiology Data (last 24 hrs): 11/02/20 20:35 Blood - Blood Aerobic Blood Culture - Final No growth in 5 days. 11/02/20 20:35 Blood - Blood Anaerobic Blood Culture - Final No growth in 5 days. 11/02/20 20:30 Blood - Blood Aerobic Blood Culture - Final No growth in 5 days. 11/02/20 20:30 Blood - Blood Anaerobic Blood Culture - Final No growth in 5 days. Assessment & Plan - Problems (Diagnosis) (1) COPD exacerbation Onset Date: 10/28/15 Current Visit: No Status: Acute Plan: Patient is improving oxygen requirements declining decreased a steroid dose plan to change it to 4-6 L of nasal cannula oxygen (2) Pulmonary hypertension Current Visit: Yes Status: Acute Plan: Patient has severe pulmonary hypertension no right ventricular dilatation no evidence of pulmonary embolism most likely diastolic dysfunction in July 2019 he had mild I have added a low-dose spironolactone Physician Review: Patient Assessed, Agree with Above Assessment and Plan
--- NOTE | 2020-11-08 13:57 | P.DS ---
Admission Date: 11/02/20 Discharge Date: 11/09/20 Disposition: [facility] Discharge Condition: FAIR Reason for Admission: Respiratory failure with severe pulmonary hypertension Brief History of Present Illness: 85-year-old man with a history of COPD, chronic respiratory failure on 4 L oxygen by nasal canula at home presented to the emergency department with a complaint of respiratory distress. Patient was placed on CPAP by EMS on the way to the emergency department. He was still dyspneic on arrival. Chest x-ray demonstrated severe interstitial lung disease but no focal consolidation. Troponin mildly elevated, patient had leukocytosis. He was admitted for further management of COPD exacerbation. Hospital Course: Acute on chronic hypoxic respiratory failure secondary to COPD with exacerba tion-on home oxygen therapy Community acquired pneumonia NSTEMI with history of CAD Pneumonia Hypertension -patient admitted to the medical floor and treated for COPD exacerbation with sc heduled bronchodilators-levalbuterol, Ipratropium. -his home inhalers-Dulera continued during the hospital stay -he was seen and evaluated by pulmonary. Patient initially treated with the IV Rocephin and Zithromax, IV Solu-Medrol. -CTA negative for PE, +pneumonia. 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 -IV steroid transition to oral prednisone -IV antibiotics transitioned to oral Levaquin. -patient was maintained on high-flow oxygen and was not able to wean him off to oxygen by nasal cannula. -Seen by cardiology for elevated troponin which was deemed secondary to demand ischemia. -echo showed normal EF and severe pulmonary hypertension. -patient weaned from high-flow oxygen and now tolerating 4 L of oxygen by nasal cannulae with SaO2 of 88 to 90%. -patient discharged to home with oral prednisone taper. Vital Signs/Physical Exam: Temp Pulse Resp BP Pulse Ox 98.1 F 88 18 141/62 H 89 L 11/08/20 12:00 11/08/20 12:00 11/08/20 12:00 11/08/20 12:00 11/08/20 12:00 General: Alert, In no apparent distress HEENT: Mucous membr. moist/pink Neck: Supple, JVD not distended Respiratory: Diminished, Crackles/rales (Bibasilar) Cardiovascular: No edema, Regular rate/rhythm, Normal S1 S2 Gastrointestinal: Normal bowel sounds, Soft and benign, Non-distended, No tenderness Musculoskeletal: No swelling Integumentary: No rashes Neurological: Normal strength at 5/5 x4 extr, Other (No focal motor deficit) Laboratory Data at Discharge: WBC 12.00 K/uL (4.3-10.9) H 11/06/20 03:29 Hgb 13.8 g/dL (13.6-17.9) 11/06/20 03:29 Hct 41.7 % (39.6-49.0) 11/06/20 03:29 Plt Count 292 K/uL (152-406) 11/06/20 03:29 PT 14.9 SECONDS (9.5-12.5) H 11/02/20 20:35 INR 1.29 11/02/20 20:35 APTT 28.8 SECONDS (24.3-36.9) 11/02/20 20:35 Sodium 142 mmol/L (136-145) 11/08/20 03:53 Potassium 4.0 mmol/L (3.5-5.1) 11/08/20 03:53 BUN 19 mg/dL (7-18) H 11/08/20 03:53 Creatinine 0.58 mg/dL (0.55-1.3) 11/08/20 03:53 Glucose 137 mg/dL (74-106) H 11/08/20 03:53 Magnesium 2.0 mg/dL (1.8-2.4) 11/06/20 03:29 Total Bilirubin 0.7 mg/dL (0.2-1.0) 11/06/20 03:29 AST 31 U/L (15-37) 11/06/20 03:29 ALT 45 U/L (12-78) 11/06/20 03:29 Alkaline Phosphatase 59 U/L (45-117) 11/06/20 03:29 Troponin I 0.18 ng/mL (0.0-0.045) H 11/04/20 13:20 Triglycerides 135 mg/dL (<150) 11/03/20 04:15 Cholesterol 130 mg/dL (<200) 11/03/20 04:15 HDL Cholesterol 24 mg/dL (40-60) L 11/03/20 04:15 Cholesterol/HDL Ratio 5.42 11/03/20 04:15 Amylase 23 U/L (25-115) L 11/02/20 20:35 Lipase 53 U/L (73-393) L 11/02/20 20:35 Home Medications: Amlodipine [Norvasc*] 10 mg PO DAILY 08/06/19 Hydralazine [Apresoline*] 25 mg PO BID 08/06/19 Losartan Potassium 100 mg PO BID 08/06/19 Metoprolol Tartrate 50 mg PO BID 08/06/19 Pantoprazole [Protonix Tab*] 40 mg PO DAILY 08/06/19 Simvastatin 80 mg PO DAILY 08/06/19 Tamsulosin [Flomax*] 0.4 mg PO DAILY 08/06/19 Tiotropium [place] [Spiriva Respimat] 2 puff IH DAILY 08/06/19 Aspirin [Tariq Chewable Aspirin] 81 mg PO DAILY 11/03/20 Fluticasone Propion/Salmeterol [Fluticasone-Salmeterol 500-50] 1 each IH BID #60 blst.w.dev 11/09/20 Ipratropium Neb [Atrovent*] 0.5 mg NEB [id number] PRN #30 amp 11/09/20 Levalbuterol [Xopenex*] 1.25 mg NEB [id number] #30 vial 11/09/20 Quetiapine [Seroquel*] 25 mg PO BEDTIME #30 tab 11/09/20 Spironolactone [Aldactone*] 25 mg PO DAILY #30 tab 11/09/20 levoFLOXacin [Levaquin*] 500 mg PO DAILY #3 tab 11/09/20 predniSONE [Deltasone*] 10 mg PO DAILY #30 tab 11/09/20 New Medications: Ipratropium Neb [Atrovent*] 0.5 mg NEB [id number] PRN #30 amp PRN Reason: Shortness Of Breath Levalbuterol [Xopenex*] 1.25 mg NEB [id number] #30 vial Spironolactone [Aldactone*] 25 mg PO DAILY #30 tab predniSONE [Deltasone*] 10 mg PO DAILY #30 tab Fluticasone Propion/Salmeterol [Fluticasone-Salmeterol 500-50] 1 each IH BID #60 blst.w.dev levoFLOXacin [Levaquin*] 500 mg PO DAILY #3 tab Quetiapine [Seroquel*] 25 mg PO BEDTIME #30 tab Diet: AHA Activity: Fall precautions Followup: Rod Guadalupe MD [ACTIVE - CAN ADMIT] - 1-2 Weeks (organizational development manager- call to schedule an appointment ) Dylan Moore MD [ACTIVE - CAN ADMIT] - 1 Week (PCP- call to schedule an appointment ) Time spent managing pt's care (in minutes): 36
--- NOTE | 2020-11-08 19:11 | P.PN ---
Subjective Date of Service: 11/08/20 Chief Complaint: Respiratory failure with severe pulmonary hypertension Patient denies any shortness of breath. He is clinically improving. Patient had tolerating 4 L oxygen by nasal cannula with borderline oxygen saturation. Physical Examination - Vital Signs Temperature: 98 F Blood Pressure: 125/59 Pulse: 76 Respirations: 16 Pulse Ox (%): 91 - Physical Exam General: Alert, In no apparent distress HEENT: Mucous membr. moist/pink Respiratory: Diminished, Crackles/rales (Bibasilar crackles) Cardiovascular: No edema, Regular rate/rhythm, Normal S1 S2 Gastrointestinal: Normal bowel sounds, Soft and benign, Non-distended, No tenderness Musculoskeletal: No swelling Integumentary: No rashes Neurological: Normal strength at 5/5 x4 extr - Studies Microbiology Data (last 24 hrs): 11/02/20 20:35 Blood - Blood Aerobic Blood Culture - Final No growth in 5 days. 11/02/20 20:35 Blood - Blood Anaerobic Blood Culture - Final No growth in 5 days. 11/02/20 20:30 Blood - Blood Aerobic Blood Culture - Final No growth in 5 days. 11/02/20 20:30 Blood - Blood Anaerobic Blood Culture - Final No growth in 5 days. Assessment And Plan Physician Review: Patient Assessed, Agree with Above Assessment and Plan Physician Review Additional Text: Problem List Acute on chronic hypoxic respiratory failure secondary to COPD with exacerbation-on home oxygen therapy Community acquired pneumonia NSTEMI with history of CAD Hypertension -patient not tolerating or L oxygen by nasal cannula -continue to monitor. -CTA negative yesterday for PE, +pneumonia. 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 -continue oral Levaquin -pulm is following -continue bronchodilators, oral prednisone. -Seen by cardiology. Elevated troponin deemed secondary to demand ischemia. -echo shows normal EF and severe pulmonary hypertension. VTE: Lovenox Code: full Dispo: Dc home with home health. Patient declining SNF placement.
[2020-11-08] MEDS: QUETIAPINE 25 MG TAB PO SCH (21:19)
[2020-11-08] MEDS: ATORVASTATIN 40 MG TAB PO SCH (21:20)
[2020-11-08] MEDS: predniSONE 10 MG TAB PO SCH (21:20)
[2020-11-09] MEDS: IPRATROPIUM BROM 0.5MG/2.5ML NEB PRN (01:30)
[2020-11-09] MEDS: LEVALBUTEROL 1.25 MG/3 ML NEB NEB SCH ×2 (01:30→07:58)
[2020-11-09] MEDS: PANTOPRAZOLE 40MG TABLET PO SCH (05:40)
[2020-11-09] MEDS: DULERA 200/5 (MOMETASONE/FORMOTEROL) INHALER IH SCH (08:27)
[2020-11-09] MEDS: METOPROLOL TAR 50 MG TAB PO SCH (08:28)
[2020-11-09] MEDS: ENOXAPARIN 40 MG/0.4 ML SQ SCH (08:28)
[2020-11-09] MEDS: LOSARTAN POTASSIUM 50 MG TABLET PO SCH (08:28)
[2020-11-09] MEDS: TAMSULOSIN 0.4 MG SR CAP PO SCH (08:29)
[2020-11-09] MEDS: ASPIRIN EC 81 MG TAB PO SCH (08:29)
[2020-11-09] MEDS: predniSONE 10 MG TAB PO SCH (08:29)
[2020-11-09] MEDS: SPIRONOLACTONE 25 MG TABLET PO SCH (08:29)
[2020-11-09] MEDS: HYDRALAZINE HCL 25 MG TABLET PO SCH (08:29)
[2020-11-09] MEDS: AMLODIPINE 10 MG TAB PO SCH (08:29)
[2020-11-09] MEDS: TIOTROPIUM 5 SPRAYS/INHALER IH SCH (08:30)
[2020-11-09] MEDS ORDERED: levoFLOXacin 500 MG TAB PO SCH (09:00)
[2020-11-09 12:13] VITALS: BP 130/58; TEMP 98
[2020-11-09 12:40] VITALS: O2SAT 88
--- NOTE | 2020-11-10 16:26 | PN ---
Date of Progress Note: 11/04/2020 Mr. Syed has been admitted to Dr. Carnes and Grecia. He had echocardiogram on 11/04/2020 showing a normal ejection fraction, severe pulmonary hypertension. Biventricular systolic pressure more than 60 mmHg. He has a history of hypertension, COPD, coronary artery disease , dyslipidemia. He has had stent in the past. Ellipta, hydralazine, losartan, metoprolol, aspirin, tamsul osin, simvastatin, . He is being followed by Dr. Guadalupe. No further cardiac workup at t his point. He has been seen in the office as an outpatient after discharge. Continue his present re roseanne. CICI/REMBERTO Voice ID: [id number] Report ID: [id number]
== END 2020-11-09 13:49 | disposition home health service (06) | DRG 189 ==
LOC: ER 20:13 → ERHOLD 22:23 → 4TH 11-03 00:15
PROVIDERS: ADMIT Hospitalist; ATTEND Internal Medicine
PROC: 5A09557 Assistance with Respiratory Ventilation, Greater than 96 Consecutive Hours, Continuous Positive Airway Pressure (ICD-10-PCS; principal; 2020-11-02)
DX: J96.21 Acute and chronic respiratory failure with hypoxia (principal); J18.9 Pneumonia, unspecified organism; I21.A1 Myocardial infarction type 2; J44.1 Chronic obstructive pulmonary disease with (acute) exacerbation; E87.0 Hyperosmolality and hypernatremia; E87.3 Alkalosis; J44.0 Chronic obstructive pulmonary disease with (acute) lower respiratory infection; I10 Essential (primary) hypertension; I27.20 Pulmonary hypertension, unspecified; E78.5 Hyperlipidemia, unspecified; I25.10 Atherosclerotic heart disease of native coronary artery without angina pectoris; R00.0 Tachycardia, unspecified; Z79.899 Other long term (current) drug therapy; Z79.82 Long term (current) use of aspirin; Z87.891 Personal history of nicotine dependence; Z99.81 Dependence on supplemental oxygen; Z79.52 Long term (current) use of systemic steroids; Z20.822 Contact with and (suspected) exposure to COVID-19
CPT/HCPCS: 36415; 71045; 71275; 80048; 80053; 80061; 80076; 81003; 81015; 82150; 82550; 82553; 82805; 83605; 83690; 83735; 84132; 84145; 84439; 84443; 84484; 85025; 85610; 85730; 87040; 87804; 93005; 93306; 94002; 94003; 94660; 94760; 96372; 97161; 97530; 99291; J0456; J0696; J1630; J1650; J2920; J2930; J3480; J7030; J7050; J7512; J7606; Q9967; U0003

== ENCOUNTER 2021-03-30 09:47 | Inpatient (IN) | payer OTHER ==
--- NOTE | 2021-03-30 11:03 | RAD REPORT ---
EXAM DESCRIPTION: CT - Head C Spine Cap Wo Con - 03/30/2021 10:30 am TECHNIQUE: Computed axial tomography of the head and cervical spine was obtained. Coronal and sagitt al reconstruction was performed Computed axial tomography of the chest, abdomen and pelvis was obtained. Contrast was not requested. All CT scans are performed using dose optimization technique as appropriate and may include automated exposure control or mA/KV adjustment according to patient size. CLINICAL HISTORY: Head and neck injury with chest and abdominal pain status post fall COMPARISON: CT chest 2020 FINDINGS: An intracranial bleed is not seen. The ventricles are normal in caliber. An extra-axial fluid collection is not noted. Mild to moderate low-density areas within periventricular, deep and subcortical white matter probably ischemic changes secondary to small vessel disease. Fluid within the sinuses/mastoids is not seen. A cervical fracture is not seen. No dislocation is noted. The evaluation of mediastinum, baldemar, vessels, solid organs and bowel are limited secondary to the lac k of contrast administration. Nondisplaced fractures are the seventh and eighth right lateral ribs. A mildly displaced fracture ai th right lateral rib. Nondisplaced fracture right tenth lateral rib. Moderately displaced fracture ri ght posterior tenth rib. Moderately displaced fracture right posterior eleventh rib. Additional nondi splaced fracture right posterior right eleventh rib. Mildly displaced fractures right posterior twelf th rib. A small right hemothorax. Mild right lung atelectasis COPD with chronic lung changes. Bilateral calcified pleural plaques. A mediastinal hematoma is not noted. The liver,spleen, pancreas, adrenals,kidneys and bladder do not demonstrate a traumatic injury. Cholelithiasis. Infrarenal abdominal aortic aneurysm AP diameter 4 centimeters IMPRESSION: 1. No acute intracranial abnormality is seen. 2. A cervical fracture is not visualized. If the patient continues have symptoms to suggest intracran ial/spinal cord pathology MRI be recommended 3. Seventh through twelfth right rib fractures with small right hemothorax 4. 4 centimeter abdominal aortic aneurysm
--- NOTE | 2021-03-30 11:48 | ER ---
Nurse's Notes [facility] Name: Ephraim Syed Age: 86 yrs Sex: Male : 1935 Arrival Date: 03/30/2021 Time: 09:48 Bed 8 Private MD: Diagnosis: Multiple fractures of ribs, right side;Other pneumothorax Presentation: 03/30 09:55 Chief complaint: EMS states: [facility] reports pt had a mechanical fall yesterday, pt is jd3 now c/o r sided rib pain, denies hitting head or loc. Coronavirus screen: Vaccine status: Patient reports receiving the 2nd dose of the covid vaccine. Client denies travel out of the [place] in the last 14 days. At this time, the client does not indicate any symptoms associated with coronavirus-19. Ebola Screen: Patient negative for fever greater than or equal to 101.5 degrees Fahrenheit, and additional compatible Ebola Virus Disease symptoms Patient denies exposure to infectious person. Patient denies travel to an Ebola-affected area in the 21 days before illness onset. Initial Sepsis Screen: Does the patient meet any 2 criteria? No. Patient's initial sepsis screen is negative. Does the patient have a suspected source of infection? No. Patient's initial sepsis screen is negative. Risk Assessment: Do you want to hurt yourself or someone else? Patient reports no desire to harm self or others. Onset of symptoms was March 29, 2021. 09:55 Method Of Arrival: EMS: [facility] jd3 09:55 Acuity: HYACINTH 3 jd3 10:06 Care prior to arrival: Medication(s) given: 30mg Toradol IV initiated. 22 GA, in the jd3 left antecubital area. Historical: - Home Meds: 10:03 tamsulosin 0.4 mg Oral cp24 1 cap once daily [Active]; amlodipine 10 mg tab 1 tab once jd3 daily [Active]; aspirin 81 mg Oral TbEC 1 tab once daily [Active]; Breo Ellipta 200-25 mcg/dose inhalation dsdv 1 puff once daily [Active]; hydralazine 25 mg Oral tab 1 tab 2 times per day [Active]; losartan 100 mg Oral tab 1 tab twice daily [Active]; metoprolol tartrate 50 mg Oral tab 1.5 tabs 2 times per day [Active]; pantoprazole 40 mg Oral TbEC 1 tab once daily [Active]; ProAir RespiClick 90 mcg/actuation inhalation aepb [Active]; simvastatin 80 mg Oral tab 80 mg daily [Active]; Spiriva Respimat 1.25 mcg/actuation inhalation mist 2 puffs once daily [Active]; - PMHx: 10:03 COPD; Hypertension; jd3 - Immunization history:: Adult Immunizations unknown, Client reports receiving the 2nd dose of the Covid vaccine, Last tetanus immunization: unknown, Pneumococcal vaccine status is unknown, Flu vaccine is up to date. - Social history:: Smoking status: Patient/guardian denies using tobacco. Screenin:07 Abuse screen: Denies threats or abuse. Nutritional screening: No deficits noted. jd3 Tuberculosis screening: No symptoms or risk factors identified. Fall Risk Fall in past 12 months (25 points). Secondary diagnosis (15 points) impaired mobility, IV access (20 points). Gait- Weak (10 pts.). Total Pollard Fall Scale indicates High Risk Score (45 or more points). Side Rails Up X 2 Frequent Obs/Assessments Occuring. Assessment: 10:00 General: Appears uncomfortable, unkempt, malnourished, Behavior is calm, cooperative. jd3 Pain: Complains of pain in right rib pain. Neuro: Level of Consciousness is awake, alert, obeys commands, Oriented to person, place, situation. Cardiovascular: Reports shortness of breath. Respiratory: Reports shortness of breath pain with movement Airway is patent Respiratory effort is even, shallow, Respiratory pattern is regular, symmetrical, Breath sounds are diminished in right middle lobe and right lower lobe. Derm: Bruising that is yellow. Musculoskeletal: Injury Description: Bruise. 11:00 Reassessment: vital signs delayed due to pt agitation, no signs of distress at this jd3 time. 11:57 Reassessment: prior to redrawing pt blood pt was stating that he does not drink alcohol jd3 and that this is a scam, self explained to pt that we are not checking alcohol levels and we are just trying to help, pt allowed for blood draw, while needle was inserted in vein pt pulled arm away stating that this was a scam and attempted to hit self, pt stated that he wanted to speak to a doctor, Dr. Downing spoke with pt, pt agreed to stay, pt then pulled of nuclear monitoring technician, pulse ox, and bp cuff, and attempted to get out of bed, was able to calm pt down, neuro status reassessed, pt alert to name. placed sitter at bedside. safety measures in place. 12:37 Reassessment: pt agitated, pt removed IV and threw it across the room, pt started jd3 becoming aggressive, provider notified, verbal order for IM Ativan received. 12:56 Reassessment: pt appears more calm, family now at bedside. jd3 14:00 Reassessment: Patient and/or family updated on plan of care and expected duration. Pain jd3 level reassessed. pt calm and corporative at this time, family at bedside, pt and family educated on IS use. 14:57 Reassessment: pt resting quietly with family at bedside, water provided. jd3 16:29 Reassessment: Patient and/or family updated on plan of care and expected duration. Pain jd3 level reassessed. Vital Signs: 09:55 BP 144 / 69; Pulse 83; Resp 24 S; Temp 97.5(A); Pulse Ox 88% on 4 lpm NC; Weight 65.77 jd3 kg (R); Height 5 ft. 6 in. (167.64 cm) (R); Pain 9/10; 10:30 BP 172 / 64; Pulse 71; Resp 22 S; Pulse Ox 91% on 4 lpm NC; jd3 10:30 BP 150 / 70; Pulse 120; Resp 20; Pulse Ox 92% on 4 lpm NC; jd3 12:58 BP 175 / 68; Pulse 103; Resp 20 S; Pulse Ox 99% on 4 lpm NC; jd3 13:56 BP 131 / 57; Pulse 94; Resp 22 S; Pulse Ox 90% on 4 lpm NC; jd3 14:59 BP 112 / 79; Pulse 76; Resp 18 S; Pulse Ox 91% on 4 lpm NC; jd3 16:01 BP 163 / 71; Pulse 81; Resp 20 S; Pulse Ox 97% on 4 lpm NC; jd3 09:55 Body Mass Index 23.40 (65.77 kg, 167.64 cm) jd3 ED Course: 09:48 Patient arrived in ED. ds1 09:49 Atnelmo Downing MD is Attending Physician. sp3 09:55 Chanel, Ciro, RN is Primary Nurse. jd3 10:03 Triage completed. jd3 10:05 Arm band placed on. jd3 10:23 XRAY Chest (1 view) In Process Unspecified. EDMS 10:30 CT Traumagram (Head C Spine CAP wo con) In Process Unspecified. EDMS 11:47 Jericho Paige is Hospitalizing Provider. sp3 11:57 Bed in low position. Call light in reach. Side rails up X2. Adult w/ patient. Sitter at [facility] bedside. 12:19 Lab(s) recollected, by me, by dental laboratory manager, sent to lab. Inserted saline lock: 22 gauge in jl7 right forearm, using aseptic technique. Blood collected. 13:00 EKG done, by ED staff, reviewed by Antelmo Downing MD. 3 16:01 Report given to yoly ramirez. jd3 16:30 Patient admitted, IV remains in place. jd3 16:30 Inserted saline lock: 22 gauge in left forearm, using aseptic technique. jd3 16:30 No provider procedures requiring assistance completed. jd3 Administered Medications: 12:31 CANCELLED (dosee): Ativan (LORazepam) 2 mg IVP once sp3 12:37 Drug: Ativan (LORazepam) 2 mg Route: IM; Site: right deltoid; jd3 13:37 Follow up: Response: No adverse reaction; Anxiety decreased jd3 Outcome: 11:48 Decision to Hospitalize by Provider. sp3 16:31 Admitted to Med/surg accompanied by tech, family with patient, via stretcher, room 232, jd3 with oxygen, with chart, Report called to yoly ramirez 16:31 Condition: stable 16:31 Patient left the ED. j Signatures: Dispatcher [employer] EDFL Kramer Blanca ds1 Ashley Lr RN RN jl7 Niki Hunter [facility] Ciro Chanel RN Antelmo Cronin MD MD sp3 Corrections: (The following items were deleted from the chart) 13:28 11:57 Reassessment: prior to redrawing pt blood pt was stating that he does not drink jd3 alcohol and that this is a scam, self explained to pt that we are not checking alcohol levels and we are just trying to help, pt allowed for blood draw, while needle was inserted in vein pt pulled arm away stating that this was a scam and attempted to hit self, pt stated that he wanted to speak to a doctor, Dr. Downing spoke with pt, pt agreed to stay, pt then pulled of nuclear monitoring technician, pulse ox, and bp cuff, and attempted to get out of bed, was able to calm pt down, neuro status reassessed, pt alert to name. placed sitter at bedside. safety measures in place. will continue to monitor. jd3
--- NOTE | 2021-03-30 11:48 | EDPHYS ---
Physician Documentation [facility] Name: Ephraim Syed Age: 86 yrs Sex: Male : 1935 Arrival Date: 03/30/2021 Time: 09:48 Bed 8 Private MD: ED Physician Antelmo Downing HPI: 03/30 10:01 This 86 yrs old Male presents to ER via Unassigned with complaints of Rib sp3 Pain. 10:01 86-year-old male with history of hypertension and COPD presents 24 hours after a sp3 ground-level mechanical fall which point he injured his right side of his upper mid and lower back and right flank. Patient states that his pain is progressively gotten worse along with worsening shortness of breath to which she is presenting to the ED via EMS. Patient denies having any anterior chest pain, headache, neck pain, abdominal pain, nausea, vomiting, diarrhea, dysuria, hematuria, or any other symptoms. Remainder of ROS is negative. He denies loss of consciousness or syncope or any other medical symptoms prior to his fall. He states that he fell on "a plastic box". Patient is on a baseline of 4 L nasal cannula at home there has been no changes to his medication regimen.. Historical: - Home Meds: 10:03 tamsulosin 0.4 mg Oral cp24 1 cap once daily [Active]; amlodipine 10 mg tab 1 tab once jd3 daily [Active]; aspirin 81 mg Oral TbEC 1 tab once daily [Active]; Breo Ellipta 200-25 mcg/dose inhalation dsdv 1 puff once daily [Active]; hydralazine 25 mg Oral tab 1 tab 2 times per day [Active]; losartan 100 mg Oral tab 1 tab twice daily [Active]; metoprolol tartrate 50 mg Oral tab 1.5 tabs 2 times per day [Active]; pantoprazole 40 mg Oral TbEC 1 tab once daily [Active]; ProAir RespiClick 90 mcg/actuation inhalation aepb [Active]; simvastatin 80 mg Oral tab 80 mg daily [Active]; Spiriva Respimat 1.25 mcg/actuation inhalation mist 2 puffs once daily [Active]; - PMHx: 10:03 COPD; Hypertension; jd3 - Immunization history:: Adult Immunizations unknown, Client reports receiving the 2nd dose of the Covid vaccine, Last tetanus immunization: unknown, Pneumococcal vaccine status is unknown, Flu vaccine is up to date. - Social history:: Smoking status: Patient/guardian denies using tobacco. ROS: 10:03 Constitutional: Negative for fever, chills, and weight loss, Eyes: Negative for injury, sp3 pain, redness, and discharge, ENT: Negative for injury, pain, and discharge, Neck: Negative for injury, pain, and swelling, Cardiovascular: Negative for chest pain, palpitations, and edema, Abdomen/GI: Negative for abdominal pain, nausea, vomiting, diarrhea, and constipation, Skin: Negative for injury, rash, and discoloration, Neuro: Negative for headache, weakness, numbness, tingling, and seizure, Psych: Negative for depression, anxiety, suicide ideation, homicidal ideation, and hallucinations, Allergy/Immunology: Negative for hives, rash, and allergies, Endocrine: Negative for neck swelling, polydipsia, polyuria, polyphagia, and marked weight changes. 10:03 All other systems are negative. Exam: 10:03 Constitutional: This is a well developed, well nourished patient who is awake, alert, sp3 and in no acute distress. Head/Face: Normocephalic, atraumatic. Eyes: Pupils equal round and reactive to light, extra-ocular motions intact. Lids and lashes normal. Conjunctiva and sclera are non-icteric and not injected. Cornea within normal limits. Periorbital areas with no swelling, redness, or edema. ENT: Nares patent. No nasal discharge, no septal abnormalities noted. External auditory canals are clear. Oropharynx with no redness, swelling, or masses, exudates, or evidence of obstruction, uvula midline. Mucous membranes moist. Neck: Trachea midline, no thyromegaly or masses palpated, and no cervical lymphadenopathy. Supple, full range of motion without nuchal rigidity, or vertebral point tenderness. No Meningismus. Neuro: Awake and alert, GCS 15, oriented to person, place, time, and situation. Cranial nerves II-XII grossly intact. Motor strength 5/5 in all extremities. Sensory grossly intact. Cerebellar exam normal. Normal gait. Psych: Awake, alert, with orientation to person, place and time. Behavior, mood, and affect are within normal limits. 10:03 Cardiovascular: Chest exam patient has regular rate and rhythm with normal heart sounds. He has rib pain along the lower posterior portions along with ecchymoses that extend from his mid back to his right flank without evidence of subcu air. Breath sounds demonstrate rhonchi and rales which are at baseline but patient states that he feels like they may be worse. Pulse oxygenation is 90% on 4 L nasal cannula. Breath sounds are equal bilaterally. There is no anterior abdominal pain, pulsatile mass, or abdominal distention. Pulses distally are normal and neuro exam distally is also normal.. Vital Signs: 09:55 BP 144 / 69; Pulse 83; Resp 24 S; Temp 97.5(A); Pulse Ox 88% on 4 lpm NC; Weight 65.77 jd3 kg (R); Height 5 ft. 6 in. (167.64 cm) (R); Pain 9/10; 10:30 BP 172 / 64; Pulse 71; Resp 22 S; Pulse Ox 91% on 4 lpm NC; jd3 10:30 BP 150 / 70; Pulse 120; Resp 20; Pulse Ox 92% on 4 lpm NC; jd3 12:58 BP 175 / 68; Pulse 103; Resp 20 S; Pulse Ox 99% on 4 lpm NC; jd3 13:56 BP 131 / 57; Pulse 94; Resp 22 S; Pulse Ox 90% on 4 lpm NC; jd3 14:59 BP 112 / 79; Pulse 76; Resp 18 S; Pulse Ox 91% on 4 lpm NC; jd3 16:01 BP 163 / 71; Pulse 81; Resp 20 S; Pulse Ox 97% on 4 lpm NC; jd3 09:55 Body Mass Index 23.40 (65.77 kg, 167.64 cm) jd3 MDM: 09:49 Patient medically screened. sp3 10:05 Data reviewed: vital signs, nurses notes, EMS record. ED course: We will treat this as sp3 a trauma event with possible COPD exacerbation overlying his baseline trauma. Patient's respiratory status is likely worsened secondary to shallow breaths from the trauma. Chest x-ray, CT trauma protocol of the head, C-spine, chest, abdomen, pelvis is pending. Laboratory values are also pending. Disposition based on work-up with possible admission for pain control and COPD if warranted.. 11:36 ED course: Scans demonstrate rib fractures 7 through 12 and a small right pneumothorax sp3 which upon my review of the CT does not need any intervention at this time. Remainder of his CAT scans are normal. Given his COPD history we will admit him for incentive spirometry and pain control along with surgery consult. I discussed with the surgeon on-call who advised to please admit to hospitalist service which we will execute.. 03/30 09:59 Order name: Basic Metabolic Panel sp3 03/30 09:59 Order name: CBC with Diff sp3 03/30 09:59 Order name: Type And Screen sp3 03/30 09:59 Order name: LFT's sp3 03/30 09:59 Order name: UA sp3 03/30 11:57 Order name: COVID-19 (Coronavirus) Document "Date of Onset" if Symptomatic jl7 03/30 09:59 Order name: CT Traumagram (Head C Spine CAP wo con); Complete Time: 11:30 sp3 03/30 09:59 Order name: XRAY Chest (1 view) sp3 03/30 09:59 Order name: Labs collected and sent; Complete Time: 10:55 sp3 03/30 12:43 Order name: SARS-COV-2 RT PCR EDMS 03/30 13:10 Order name: ABO/RH no charge EDMS 03/30 11:08 Order name: Labs - recollect needed: recollect blood its hemolyzed; Complete Time: 12:19eb Administered Medications: 12:31 CANCELLED (dosee): Ativan (LORazepam) 2 mg IVP once sp3 12:37 Drug: Ativan (LORazepam) 2 mg Route: IM; Site: right deltoid; jd3 13:37 Follow up: Response: No adverse reaction; Anxiety decreased jd3 Disposition Summary: 03/30/21 11:48 Hospitalization Ordered Hospitalization Status: Observation sp3 Provider: Jericho Paige sp3 Location: Telemetry/MedSurg (observation) sp3 Condition: Fair sp3 Problem: new sp3 Symptoms: have worsened sp3 Bed/Room Type: Standard sp3 Room Assignment: 232(03/30/21 15:29) dw Diagnosis - Multiple fractures of ribs, right side sp3 - Other pneumothorax sp3 Forms: - Medication Reconciliation Form sp3 - SBAR form sp3 Signatures: Dispatcher [employer] EDMS Macrina Blancas RN RN dw Davies, Jonathon, RN RN jd3 Enid Curran Setul, MD MD sp3 Corrections: (The following items were deleted from the chart) 12: 12:30 Ativan (LORazepam) 2 mg IVP once ordered. sp3 sp3 12:44 11:58 CORONAVIRUS ordered. EDMS EDMS 15:29 11:48 sp3 dw
[2021-03-30 12:13] LABS: Albumin 3.4 g/dL (3.4-5.0); Bilirubin Direct 0.2 mg/dL (0-0.2); Bilirubin Total 0.6 mg/dL (0.2-1.0); Potassium 4.2 mmol/L (3.5-5.1); Protein, Total 7.1 g/dL (6.4-8.2)
[2021-03-30] MEDS ORDERED: LORazepam 2 MG/ML VIAL ONE (12:30)
[2021-03-30 12:33] LABS: Absolute Lymphocytes (CBC) 1.5 K/uL (0.7-4.9); Basophils % 0.2 % (0-1.3); Hematocrit 38.4 % (39.6-49.0); Lymphocytes % 10.8 % (15.3-44.8); MPV 8.6 fL (7.6-11.3); RBC Red Blood Cell Count 4.24 M/uL (4.33-5.43)
--- NOTE | 2021-03-30 14:28 | P.HP ---
Certification for Inpatient Patient admitted to: Inpatient With expected LOS: >2 Midnights Practitioner: I am a practitioner with admitting privileges, knowledge of patient current condition, hospital course, and medical plan of care. Services: Services provided to patient in accordance with Admission requirements found in Title 42 Section 412.3 of the Code of Federal Regulations Patient History Date of Service: 03/30/21 Reason for admission: Fall History of Present Illness: 86-year-old gentleman with a history of hypertension, COPD and chronic respiratory failure on 4 L of oxygen at baseline was brought to the emergency department because of a fall at home yesterday. Patient experienced pain today and was therefore brought to the emergency department. Imaging done in the ED demonstrating multiple rib fractures, right 7th to 12th ribs, some nondisplaced, some moderately displaced or mildly displaced. CT chest also demonstrates small right hemothorax and emphysematous changes. Head CT negative for acute disease. General surgery-Dr. Fernandes contacted recommended admission here for supportive measures and monitoring. Patient noted to be confused during my assessment in the ED and he could not provide any history. Vitals stable. He is stable on his baseline oxygen 4 L by nasal cannula. Patient is admitted for further management. Allergies No Known Allergies Allergy (Verified 11/03/20 04:41) Home Medications: Amlodipine [Norvasc*] 10 mg PO DAILY 08/06/19 Hydralazine [Apresoline*] 25 mg PO BID 08/06/19 Losartan Potassium 100 mg PO BID 08/06/19 Metoprolol Tartrate 50 mg PO BID 08/06/19 Pantoprazole [Protonix Tab*] 40 mg PO DAILY 08/06/19 Simvastatin 80 mg PO DAILY 08/06/19 Tamsulosin [Flomax*] 0.4 mg PO DAILY 08/06/19 Tiotropium Curtis [Spiriva Respimat] 2 puff IH DAILY 08/06/19 Aspirin [Tariq Chewable Aspirin] 81 mg PO DAILY 11/03/20 Fluticasone Propion/Salmeterol [Fluticasone-Salmeterol 500-50] 1 each IH BID #60 blst.w.dev 11/09/20 Ipratropium Neb [Atrovent*] 0.5 mg NEB [id number] PRN #30 amp 11/09/20 Levalbuterol [Xopenex*] 1.25 mg NEB [id number] #30 vial 11/09/20 Quetiapine [Seroquel*] 25 mg PO BEDTIME #30 tab 11/09/20 Spironolactone [Aldactone*] 25 mg PO DAILY #30 tab 11/09/20 levoFLOXacin [Levaquin*] 500 mg PO DAILY #3 tab 11/09/20 predniSONE [Deltasone*] 10 mg PO DAILY #30 tab 11/09/20 - Past Medical/Surgical History Diabetic: No -: hypertension -: Copd -: Coronary artery disease -: HLD -: Cardiac catheterization with stent placement Psychosocial/ Personal History: Patient lives at home with son - Family History Family History: Reviewed- Non-Contributory - Social History Alcohol use: Yes CD- Drugs: No Caffeine use: Yes Review of Systems is unable to be obtained (Due to confusion.) Physical Examination - Physical Exam General: In no apparent distress, Confused, Other (Awake) HEENT: Atraumatic, Normocephalic, PERRLA, Mucous membr. moist/pink, EOMI, Sclerae nonicteric Neck: Supple, JVD not distended Respiratory: Clear to auscultation bilaterally, Normal air movement, Other (No crackles.) Cardiovascular: No edema, Regular rate/rhythm, Normal S1 S2 Capillary refill: <2 Seconds Gastrointestinal: Normal bowel sounds, Soft and benign, Non-distended, No tenderness, No guarding Musculoskeletal: No swelling, No erythema Integumentary: No rashes, No erythema, No cyanosis Neurological: Cranial nerves 3-12 intact, Other (No focal motor deficit) Lymphatics: No axilla or inguinal lymphadenopathy - Studies Laboratory Data (last 24 hrs) 03/30/21 12:16: WBC 14.00 H, Hgb 12.5 L, Hct 38.4 L, Plt Count 276 03/30/21 11:38: Sodium 140, Potassium 4.2, BUN 36 H, Creatinine 1.35 H, Glucose 112 H, Total Bilirubin 0.6, AST 18, ALT 26, Alkaline Phosphatase 73 Assessment and Plan - Problems (Diagnosis) (1) Fall Current Visit: Yes Status: Acute (2) Ribs, multiple fractures Current Visit: Yes Status: Acute (3) Hemothorax Current Visit: Yes Status: Acute (4) COPD (chronic obstructive pulmonary disease) Current Visit: Yes Status: Acute (5) Chronic respiratory failure with hypoxia Current Visit: Yes Status: Acute (6) Acute renal failure Current Visit: Yes Status: Acute - Plan Vital signs stable. Admit patients to the medical floor. Supportive measures with IV morphine as needed for pain. IV fluid. Incentive spirometry. Case discussed with general surgery-Dr. Fernandes. Arterial blood gas in a.m. Repeat chest x-ray in the a.m. Continue home bronchodilators. Schedule albuterol and ipratropium. Haldol as needed for delirium with agitation. Monitor renal function. - Advance Directives Does patient have a Living Will: No Does patient have a Durable POA for Healthcare: No
--- NOTE | 2021-03-30 15:08 | CON ---
Date of Consultation: 03/30/2021 Brief History Of Present Illness: The patient is an 86-year-old male, who presents prior to ground-l evel mechanical fall, at which point, he fell on some plastic box onto his right chest and had onset of pain. He was brought to the hospital with worsening shortness of breath. This occurred yesterday , uncertain of the time, but he had been getting progressive shortness of breath. He does have a his tory of COPD and is oxygen dependent with 4 L nasal cannula at home. Attended to by Dr. Guadalupe. Jim silva my examination, the patient is somewhat confused; however, he had received some Ativan prior to my arrival. His son is at the bedside and helps corroborate the information, but patient appears co nfused and as such, information is obtained primarily from family and chart and with patient's contri bution. Past Medical History: Significant for COPD, hypertension. Past Surgical History: Negative. Home Medications: Include tamsulosin, amlodipine, aspirin, Breo, hydralazine, losartan, metoprolol, pantoprazole, ProAir inhaler, Spiriva. Review of Systems: Ten-point review of systems of the patient denies other than HPI. Physical Examination: Vital Signs: At the time of my examination, blood pressure 144/69, pulse 83, respiratory rate 24, Sp O2 is 90% on 4 L nasal cannula. General: He is awake and alert, but confused. HEENT: Normocephalic. His sclerae are anicteric. His mucous membranes are moist. His oropharynx i s clear. He has poor dentition and he has dentures missing. There was no obvious oropharyngeal trau ma or facial trauma. Chest: Normal expansion and excursion. He has right-sided chest tenderness, but no obvious bruising or lesions, but he has tenderness along the entire right lateral chest wall as well as posterior and anterior. Left chest examination is unremarkable. Abdomen: Soft, nontender, nondistended. No rebound. No guarding. No focal peritonitis. Pelvis: Stable. No tenderness. No blood at the meatus. Extremities: No clubbing, cyanosis, or edema. Skin: Warm and dry. Laboratory Data: Reveals a white blood count of 14, hemoglobin 12.5, hematocrit 38.4, platelet count is 276. His sodium 140, potassium 4.2, chloride 106, carbon dioxide is 23, BUN 36, creatinine 1.3, glucose is 112. Total bilirubin 0.6, direct bilirubin 0.2, AST 18, ALT 26, alkaline phosphatase is 7 3. His urine is currently pending. His COVID test was negative. He had a CT scan of the head and C -spine as well as chest, abdomen, and pelvis, officially read as no acute intracranial abnormality se en. A cervical fracture is not visualized. The patient continues suggest intracranial spinal cord p athology. MRI may be recommended. 7 through 12 rib fractures with small right hemothorax, 4 cm abdo jonathan aortic aneurysm. Assessment And Plan: This is an 86-year-old male, who comes in after a ground-level fall with low-gr kelli confusion, who has multiple right-sided rib fractures and a small hemothorax. 1.IV fluid hydration. 2.Medical management. 3.The patient is being admitted for observation. 4.Incentive spirometry. 5.Continue oxygen supplementation and respiratory treatments per medical team. 6.I have explained his risks, benefits, and alternatives of the above stated plan to the patient and his son and they agreed to proceed as indicated. AVINASH/REMBERTO Voice ID: [id number] Report ID: [id number]
[2021-03-30] MEDS ORDERED: ACETAMINOPHEN 500 MG TAB PO PRN (15:59)
[2021-03-30] MEDS ORDERED: ONDANSETRON 4 MG/2 ML VIAL IV PRN (15:59)
[2021-03-30] MEDS: IPRATROPIUM BROM 0.5MG/2.5ML NEB SCH ×2 (16:50→20:00)
[2021-03-30] MEDS: ALBUTEROL 2.5 MG/3 ML NEB SOL NEB SCH ×2 (16:50→20:00)
[2021-03-30] MEDS: NA CHLORIDE 0.9% 1,000 ML IV SCH (16:54)
[2021-03-30 17:14] VITALS: BMI 20.1
[2021-03-30] MEDS: FLUTICASONE PROPION IH SCH (21:00)
[2021-03-30] MEDS: SALMETEROL IH SCH (21:00)
[2021-03-30] MEDS: BLST W D IH SCH (21:00)
[2021-03-30] MEDS: HYDRALAZINE HCL 20 MG/ML VIAL IV PRN (21:55)
[2021-03-31] MEDS: IPRATROPIUM BROM 0.5MG/2.5ML NEB SCH ×4 (02:00→19:30)
[2021-03-31] MEDS: ALBUTEROL 2.5 MG/3 ML NEB SOL NEB SCH ×5 (02:00→20:00)
[2021-03-31] MEDS: HALOPERIDOL LACT 5 MG/ML INJ IV PRN ×3 (03:42→17:30)
[2021-03-31] MEDS: NA CHLORIDE 0.9% 1,000 ML IV SCH ×3 (05:25→17:25)
[2021-03-31 06:03] LABS: Protime INR 1.06
[2021-03-31 06:07] LABS: Absolute Lymphocytes (CBC) 0.5 K/uL (0.7-4.9); Basophils % 0.2 % (0-1.3); Hematocrit 37.3 % (39.6-49.0); Lymphocytes % 2.4 % (15.3-44.8); MPV 8.9 fL (7.6-11.3); RBC Red Blood Cell Count 4.13 M/uL (4.33-5.43)
[2021-03-31 06:22] LABS: Phosphorus 3.4 mg/dL (2.5-4.9); Potassium 3.9 mmol/L (3.5-5.1); Thyroid Stimulating Hormone 2.53 uIU/mL (0.360-3.740)
[2021-03-31 06:34] LABS: Arterial Blood Carboxyhemoglob 1.2 % (0-1.5); Blood Gas Oxyhemoglobin 86.3 % (94-97); Blood O2 Saturation 88.3 % (92-98.5)
[2021-03-31 06:50] LABS: Blood Morphology Comment NOT SEEN (NOT SEEN); Platelet Estimate ADEQ; Platelets, Giant PRESENT
--- NOTE | 2021-03-31 07:28 | RAD REPORT ---
EXAM DESCRIPTION: [facility] Single View03/31/2021 5:43 am CLINICAL HISTORY: Chest pain COMPARISON: March 30, 2021 FINDINGS: The lungs are hyperaerated. Bilateral interstitial opacities are present consistent with p ulmonary fibrosis. Calcified pleural plaques. No change in multiple right rib fractures. No pneumotho rax. Small right pleural effusion with mild right basilar atelectasis Heart is mildly enlarged.
[2021-03-31] MEDS: TAMSULOSIN 0.4 MG SR CAP PO SCH (08:44)
[2021-03-31] MEDS: MORPHINE 2 MG/ML SYR IV PRN ×2 (08:45→20:15)
[2021-03-31] MEDS: BLST W D IH SCH ×2 (08:45→20:43)
[2021-03-31] MEDS: SALMETEROL IH SCH ×2 (08:45→20:43)
[2021-03-31] MEDS: FLUTICASONE PROPION IH SCH ×2 (08:45→20:43)
[2021-03-31] MEDS ORDERED: POTASSIUM CL SA 10 MEQ TAB PO ONE (09:00)
[2021-03-31] MEDS ORDERED: ZIPRASIDONE MESYLA 20 MG/VIAL IM ONE (13:01)
[2021-03-31] MEDS: WATER FOR INJ,STERILE 10 ML IM PRN (13:25)
--- NOTE | 2021-03-31 13:28 | P.PN ---
Subjective Date of Service: 03/31/21 Chief Complaint: Fall Subjective: No new changes (Patient remains confused, increased oxygen requirements) Physical Examination - Vital Signs Temperature: 97.6 F Blood Pressure: 155/75 Pulse: 116 Respirations: 20 Pulse Ox (%): 92 - Physical Exam General: Alert, In no apparent distress, Confused Respiratory: Diminished Cardiovascular: Regular rate/rhythm Musculoskeletal: Other (Bruising to RIGHT chest wall, tenderness to palpation, no change in tenderness) Assessment And Plan - Current Problems (Diagnosis) (1) Ribs, multiple fractures Current Visit: Yes Status: Acute Plan: - continue pain regime - patient likely has developing pulmonary contusion - respiratory toilet - daily chest x-rays - confusion / medical issues per Dr. Paige
[2021-03-31] MEDS ORDERED: HYDROCODONE/APAP 5/325 MG TAB PO PRN (13:29)
--- NOTE | 2021-03-31 15:20 | P.PN ---
Subjective Date of Service: 03/31/21 Chief Complaint: Fall Confused and sometimes agitated. He is requiring more oxygen today. Up to 10 L by nasal cannula. WBC elevated. No recorded fever. Son is by his bedside. Physical Examination - Vital Signs Temperature: 97.6 F Blood Pressure: 155/75 Pulse: 116 Respirations: 20 Pulse Ox (%): 92 Assessment And Plan - Current Problems (Diagnosis) (1) Fall Current Visit: Yes Status: Acute (2) Ribs, multiple fractures Current Visit: Yes Status: Acute (3) Hemothorax Current Visit: Yes Status: Acute (4) COPD (chronic obstructive pulmonary disease) Current Visit: Yes Status: Acute (5) Chronic respiratory failure with hypoxia Current Visit: Yes Status: Acute (6) Acute renal failure Current Visit: Yes Status: Acute - Plan Physical exam General: In no apparent distress, Confused, Other (Awake) HEENT: Atraumatic, Normocephalic, PERRLA, Mucous membr. moist/pink, EOMI, Sclerae nonicteric Neck: Supple, JVD not distended Respiratory: Clear to auscultation bilaterally, Normal air movement, Other (No crackles.) Cardiovascular: No edema, Regular rate/rhythm, Normal S1 S2 Capillary refill: <2 Seconds Gastrointestinal: Normal bowel sounds, Soft and benign, Non-distended, No tenderness, No guarding Musculoskeletal: No swelling, No erythema Integumentary: No rashes, No erythema, No cyanosis Neurological: Cranial nerves 3-12 intact, Other (No focal motor deficit) Lymphatics: No axilla or inguinal lymphadenopathy Plan: Vital signs stable. Continue supportive measures with IV morphine as needed for pain. Iv D5NS. Nursing staff report problem with swallowing. Keep n.p.o. Start IV Levaquin given leukocytosis. General surgery input appreciated. Arterial blood gas shows moderate CO2 retention. Patient with shallow breathing secondary to pain. Repeat chest x-ray reviewed and reported bilateral interstitial infiltrates and small right pleural effusion. Pain management Titrate oxygen. Incentive spirometry. General surgery-Dr. Fernandes input appreciated. Continue home bronchodilators. Schedule albuterol and ipratropium. Haldol as needed for delirium with agitation. Patient given a dose of Geodon IM today Monitor renal function and CBC. Prognosis is guarded. According to son, patient wishes to remain full code.
[2021-03-31] MEDS: Levofloxacin 750mg IV 750 MG/150 ML BAG IV SCH (15:50)
--- NOTE | 2021-03-31 18:27 | EKG ---
Test Date: 2021-03-30 Test Time: 13:25:30 Mining Plant Operator: STEVE MEASUREMENT RESULTS: Intervals: Rate: 94 MS: 208 QRSD: 82 QT: 380 QTc: 475 South Heart: P: 84 MS: 208 QRS: -21 T: 62 INTERPRETIVE STATEMENTS: Normal sinus rhythm RSR' or QR pattern in V1 suggests right ventricular conduction delay Septal infarct, age undetermined Abnormal ECG Compared to ECG 11/03/2020 16:06:46 RSR' in V1 or V2 now present Myocardial infarct finding now present Left-axis deviation no longer present Prolonged QT interval no longer present Electronically Signed On 03-31-21 18:23:47 [employer] by Antonio Villa
[2021-03-31] MEDS ORDERED: LORazepam 2 MG/ML VIAL IV ONE (19:35)
[2021-03-31] MEDS: METOPROLOL TAR 50 MG TAB PO SCH (20:18)
[2021-03-31] MEDS: QUETIAPINE 25 MG TAB PO SCH (20:19)
[2021-04-01] MEDS: HYDRALAZINE HCL 20 MG/ML VIAL IV PRN (01:02)
[2021-04-01] MEDS: HALOPERIDOL LACT 5 MG/ML INJ IV PRN ×2 (01:02→23:13)
[2021-04-01] MEDS: IPRATROPIUM BROM 0.5MG/2.5ML NEB SCH ×4 (02:00→20:00)
[2021-04-01] MEDS: ALBUTEROL 2.5 MG/3 ML NEB SOL NEB SCH ×4 (02:00→20:00)
[2021-04-01] MEDS: MORPHINE 2 MG/ML SYR IV PRN ×3 (03:22→23:13)
[2021-04-01 05:54] LABS: Absolute Lymphocytes (CBC) 0.4 K/uL (0.7-4.9); Basophils % 0.2 % (0-1.3); Hematocrit 35.5 % (39.6-49.0); Lymphocytes % 2.5 % (15.3-44.8); MPV 9.2 fL (7.6-11.3); RBC Red Blood Cell Count 3.91 M/uL (4.33-5.43)
[2021-04-01] MEDS: NA CHLORIDE 0.9% 1,000 ML IV SCH ×2 (06:44→21:19)
[2021-04-01 07:25] LABS: Magnesium 2.1 mg/dL (1.8-2.4)
[2021-04-01] MEDS: HOME MED 1 EA UNK (Fluticasone/Vilanterol [Breo Ellipta 200-25 Mcg Inh] Blst.W.Dev) IH SCH (09:00)
[2021-04-01] MEDS: FLUTICASONE PROPION IH SCH ×2 (09:00→20:26)
[2021-04-01] MEDS: BLST W D IH SCH ×2 (09:00→20:26)
[2021-04-01] MEDS: SALMETEROL IH SCH ×2 (09:00→20:26)
--- NOTE | 2021-04-01 09:24 | RAD REPORT ---
EXAM DESCRIPTION: RAD - Chest Single View - 04/01/2021 5:41 am CLINICAL HISTORY: rib fractures, f/u hemothorax Chest pain. COMPARISON: Chest Single View dated 03/31/2021; Chest Single View dated 11/05/2020; Chest Single View dated 11/02/2020; Chest Single View dated 08/08/2019 FINDINGS: Portable technique limits examination quality. 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 Bilateral pulmonary opacities are again seen , mildly progressive in the right lower lobe since prior study. The heart is mildly enlarged in size. Small right pleural effusion is seen. Multiple right lateral rib fractures are again noted. No pneum othorax. IMPRESSION: Mild worsening in right basilar lung aeration is seen since comparative study.
[2021-04-01] MEDS: METOPROLOL TAR 50 MG TAB PO SCH ×2 (09:32→20:32)
[2021-04-01] MEDS: SPIRONOLACTONE 25 MG TABLET PO SCH (09:32)
[2021-04-01] MEDS: TAMSULOSIN 0.4 MG SR CAP PO SCH (09:32)
[2021-04-01 09:48] LABS: Urine Appearance CLEAR (Clear); Urine Blood NEGATIVE (Negative); Urine Color YELLOW (Yellow); Urine Glucose NEGATIVE (Negative); Urine Protein NEGATIVE (Negative); Urine Urobilinogen 0.2 mg/dL (0.2-1.0)
[2021-04-01 09:49] LABS: Urine Bilirubin NEGATIVE (Negative); Urine Microscopic Reflex NO UMIC
[2021-04-01] MEDS ORDERED: HYDROCODONE/APAP 5/325 MG TAB PO PRN (12:10)
--- NOTE | 2021-04-01 12:13 | P.CNS ---
Date of Consult: 04/03/21 Reason for Consult: COPD multiple rib fractures Chief Complaint: Fall History of Present Illness: Patient is 86 years of age well known to me is terminal COPD son at the bedside he was blowing 0 well recently fell backwards fractured multiple ribs on the right side complains of significant amount of pain he has had falls before he has become progressively more debilitated in the last few months unable to obtain any history from the patient Allergies No Known Allergies Allergy (Verified 11/03/20 04:41) Home Medications: Amlodipine [Norvasc*] 10 mg PO DAILY 08/06/19 Metoprolol Tartrate 75 mg PO BID 08/06/19 Simvastatin 80 mg PO DAILY 08/06/19 Tamsulosin [Flomax*] 0.4 mg PO DAILY 08/06/19 Aspirin [Tariq Chewable Aspirin] 81 mg PO DAILY 11/03/20 Quetiapine [Seroquel*] 25 mg PO BEDTIME #30 tab 11/09/20 Spironolactone [Aldactone*] 25 mg PO DAILY #30 tab 11/09/20 Albuterol Sulfate [Proair Respiclick] 2 inh IH QID PRN 03/31/21 Fluticasone/Vilanterol [Breo Ellipta 200-25 Mcg INH] 1 inh IH DAILY 03/31/21 - Past Medical/Surgical History Diabetic: No -: hypertension -: Copd -: Coronary artery disease -: HLD -: Cardiac catheterization with stent placement Psychosocial/ Personal History: Patient lives at home with son - Social History Alcohol use: No CD- Drugs: No Caffeine use: No Place of Residence: Home Review of Systems is unable to be obtained Physical Examination Temp Pulse Resp BP Pulse Ox 96.9 F 124 H 18 113/83 91 04/01/21 08:00 04/01/21 08:00 04/01/21 10:28 04/01/21 08:00 04/01/21 10:28 General: Moderate distress Respiratory: Diminished, Expiratory wheezes Cardiovascular: No edema, Normal S1 S2 Gastrointestinal: Normal bowel sounds, Soft and benign - Problems (1) Ribs, multiple fractures Current Visit: Yes Status: Acute Plan: Patient is 86 years of age admitted with a fall multiple right posterior rib fractures possible underlying lung contusion is cut more haziness white count is declining CTs chest x-ray reviewed prognosis is poor continue with nebulizer and antibiotics for now mild hypernatremia had p.o. Lian will discuss with family members regarding DNR a Qualifiers: Encounter type: subsequent encounter
--- NOTE | 2021-04-01 13:36 | P.PN ---
Date of Service: 04/01/21 Subjective: No acute events overnight. Patient continues with confusion He denies any issues other than some occasional pain, difficult to obtain full history Son at bedside, feels confusion is slightly worse compared to few days ago ROS: 10 point ROS as noted above, otherwise negative Physical exam GEN: Alert, oriented to self only HEENT: Normal conjunctiva, sclera anicteric CV: Sinus tachycardia, HR: 951 10, no edema Pulm: Mild labored respirations on 10 L nasal cannula, diminished bilateral bases ABD: Soft, nontender, nondistended Integumentary: No rashes Neuro: Weak voice, slight slurred speech, moves all extremities, generalized weakness Problem List Multiple rib fractures s/p fall Acute encephalopathy, likely metabolic Hemothorax Chronic COPD and O2 at home Acute on chronic respiratory failure with hypoxemia Acute renal failure secondary to dehydration, resolved Patient is currently n.p.o., continue IV fluids. Awaiting speech therapy evaluation given altered mental status Unclear etiology of acute encephalopathy, possibly due to hypercapnia, possible infection Continue pain medication as needed for rib fractures General surgery was consulted for hemothorax, which has been stable, no current plan for surgery/procedure ABG with moderate CO2 retention, patient with moderatesevere chronic COPD Leukocytosis noted on 03/31, with slight improvements. Continue IV Levaquin for possible pneumonia. Concern with rib fractures that led to atelectasis, can develop pneumonia or empyema Pulmonology consulted Titrate oxygen as tolerated, incentive spirometry and following commands Continue bronchodilators, nebulizers Haldol as needed for delirium/agitation Did receive Espinozadon yesterday Code: Fulld Dispo: prognosis guarded, anticipate dc to SNF in 2-3 days Discussed with son at bedside, to continue with full code Time Spent Managing Pts Care (In Minutes): 35
--- NOTE | 2021-04-01 13:57 | CON ---
Reason For Consultation: Hemothorax, multiple rib fractures, status post fall. History Of Present Illness: This is the case of an 86-year-old patient, who fell several days ago th at was 03/30/2021, admitted to the hospital, was seen initially by Dr. Fernandes, the surgeon on-call f or trauma. He has to be out of town this week. He asked me to follow up on this patient. Past Medical History: COPD, hypertension. Past Surgical History: None. Medications: Reviewed including metoprolol. Review of Systems: Unable to be obtained. Most of the information I got today's from the patient's family sitting at be dside. Physical Examination: General: The patient is awake, but confused. HEENT: Pupils anicteric. Lungs: Bilateral breath sounds. Abdomen: No guarding or rebound. Laboratory Data: The blood work today shows a WBC count of 22 yesterday and 17 today, hemoglobin 11. 7, platelets of 228. INR is 1.06. Chloride is 118. Sodium is 146. The x-rays today by Dr. Wyman wa s interpreted as worsening of the right with bilateral pulmonary opacities. The calcified fibrothorax in the left side is unchanged. Multiple right lateral rib fractures noticed. No pneumo thorax. Assessment: An 86-year-old patient with multiple medical problems, came here after fall and has an i ncreased WBC count. Ventilation has been little of a challenge when I discussed that with Dr. Carnes today, but it is still manageable. From the surgical standpoint, we do not see any pneumothorax pres ent or any increased hemothorax. From the surgical standpoint, we will recommend Pulmonary consult _ due to pneumonia, then the antibiotics as per Pulmonary consult. Incentive spirometry. We will follow the patient with you. HM/MODL Voice ID: [id number] Report ID: [id number]
[2021-04-01] MEDS: Levofloxacin 750mg IV 750 MG/150 ML BAG IV SCH (16:18)
[2021-04-01] MEDS: ENOXAPARIN 40 MG/0.4 ML SQ SCH (16:18)
[2021-04-01] MEDS: QUETIAPINE 25 MG TAB PO SCH (20:32)
[2021-04-02] MEDS: IPRATROPIUM BROM 0.5MG/2.5ML NEB SCH ×4 (02:00→20:00)
[2021-04-02] MEDS: ALBUTEROL 2.5 MG/3 ML NEB SOL NEB SCH ×4 (02:00→20:00)
[2021-04-02] MEDS: MORPHINE 2 MG/ML SYR IV PRN ×4 (02:14→21:56)
[2021-04-02 05:39] LABS: Absolute Lymphocytes (CBC) 0.4 K/uL (0.7-4.9); Basophils % 0.1 % (0-1.3); Hematocrit 27.9 % (39.6-49.0); Lymphocytes % 2.9 % (15.3-44.8); MPV 8.9 fL (7.6-11.3); RBC Red Blood Cell Count 3.06 M/uL (4.33-5.43)
[2021-04-02 06:04] LABS: Albumin 2.1 g/dL (3.4-5.0); Bilirubin Total 0.6 mg/dL (0.2-1.0); Magnesium 2.2 mg/dL (1.8-2.4); Potassium 3.9 mmol/L (3.5-5.1); Protein, Total 5.7 g/dL (6.4-8.2)
--- NOTE | 2021-04-02 06:17 | P.PN ---
Date of Service: 04/02/21 Subjective: worsening hypoxia and continues with intermittent confusion overnight constantly trying to take nasal cannula off patient placed on BIPAP. hypoxic to 70s quickly when mask removed continues with R chest wall pain ROS: 10 point ROS as noted above, otherwise negative Physical exam GEN: Alert, oriented to self only HEENT: Normal conjunctiva, sclera anicteric CV: Sinus tachycardia, HR: 79047, no edema Pulm: diminished bilaterally, mild labored respirations on BIPAP ABD: Soft, nontender, nondistended Integumentary: No rashes Neuro: Weak voice, slight slurred speech, moves all extremities, generalized weakness Problem List Multiple rib fractures s/p fall Acute encephalopathy, likely metabolic Hemothorax Pneumonia Hypernatremia, acute Chronic COPD and O2 at home Acute on chronic respiratory failure with hypoxemia Acute renal failure secondary to dehydration, resolved remains NPO, refused to work with ST NS changed to D5 due to hypernatremia pulm recommends dobhoff placement, patient will likely pull out. may need PPN if not improving by tomorrow acute encephalopathy likely secondary to hypercapnia / possible infection Continue pain medication as needed for rib fractures General surgery was consulted for hemothorax, which has been stable, no current plan for surgery/procedure ABG with moderate CO2 retention, patient with moderatesevere chronic COPD Leukocytosis noted on 03/31, with slight improvement Continue IV Levaquin for possible pneumonia. Concern with rib fractures that led to atelectasis, can develop pneumonia or empyema Pulmonology consulted Titrate oxygen as tolerated Continue bronchodilators, nebulizers will try geodon, pt seems to respond better to this overall seems to be worsening hgb dropped, lovenox was given per pulm yesterday, will discontinue, repeat labs at noon Code: Full Dispo: prognosis guarded, discussed with daughter and eldest son at length today state wouldn't want him to suffer, but to continue with full code Time Spent Managing Pts Care (In Minutes): 45
[2021-04-02] MEDS ORDERED: D5 0.45 NS 1,000 ML IV SCH (07:00)
--- NOTE | 2021-04-02 07:24 | RAD REPORT ---
EXAM DESCRIPTION: RAD - Chest Single View - 04/02/2021 5:57 am CLINICAL HISTORY: rib fractures, f/u hemothorax COMPARISON: Chest Single View dated 04/01/2021; Chest Single View dated 03/31/2021; Chest Single View dated 11/05/2020; Chest Single View dated 11/02/2020; Chest For Pe Angio dated 11/03/2020 FINDINGS: Lines: None. Lungs: Mild worsening in aeration of the right lung base with again noted to be patchy irregular and partially consolidative airspace disease. Pleural: Small effusions bilaterally suspected. Cardiac: The heart size is within normal limits. Bones: No acute fractures. Other: IMPRESSION: Multifocal airspace disease concerning for pneumonia with mild worsening at the right jamal ng base.
[2021-04-02] MEDS: SPIRONOLACTONE 25 MG TABLET PO SCH (08:34)
[2021-04-02] MEDS: TAMSULOSIN 0.4 MG SR CAP PO SCH (08:35)
[2021-04-02] MEDS: SALMETEROL IH SCH (08:36)
[2021-04-02] MEDS: FLUTICASONE PROPION IH SCH (08:36)
[2021-04-02] MEDS: HOME MED 1 EA UNK (Fluticasone/Vilanterol [Breo Ellipta 200-25 Mcg Inh] Blst.W.Dev) IH SCH (08:36)
[2021-04-02] MEDS: BLST W D IH SCH (08:36)
[2021-04-02] MEDS: ENOXAPARIN 40 MG/0.4 ML SQ SCH (08:37)
[2021-04-02] MEDS: D5W 1,000 ML IV SCH ×3 (08:48→23:45)
[2021-04-02] MEDS ORDERED: POTASSIUM CL SA 10 MEQ TAB PO ONE (09:00)
[2021-04-02] MEDS: HALOPERIDOL LACT 5 MG/ML INJ IV PRN (10:10)
[2021-04-02] MEDS: METOPROLOL TARTRATE 5 MG/5 ML INJ IV SCH ×3 (10:25→18:03)
[2021-04-02 11:46] LABS: Hematocrit 27.5 % (39.6-49.0); MPV 8.9 fL (7.6-11.3); RBC Red Blood Cell Count 2.96 M/uL (4.33-5.43)
[2021-04-02 11:56] LABS: Magnesium 2.1 mg/dL (1.8-2.4)
--- NOTE | 2021-04-02 12:03 | P.PN ---
Subjective Date of Service: 04/02/21 Chief Complaint: resp failure Subjective: Worsening (Conition worsening now onBIPAPCXRY worse confused) Review of Systems is unable to be obtained Physical Examination - Vital Signs Temperature: 97.5 F Blood Pressure: 141/67 Pulse: 132 Respirations: 25 Pulse Ox (%): 95 - Physical Exam General: Alert, Mild distress Respiratory: Crackles/rales (R side ) Cardiovascular: No edema, Regular rate/rhythm, Normal S1 S2 Assessment & Plan - Problems (Diagnosis) (1) Ribs, multiple fractures Current Visit: Yes Status: Acute Plan: Patient is 86 years of age admitted with a fall multiple right posterior rib fractures possible underlying lung contusion is cut more haziness white count is declining CTs chest x-ray reviewed prognosis is poor continue with nebulizer and antibiotics for now mild hypernatremia had p.o. Vicodin will discuss with family members regarding DNR a Qualifiers: Encounter type: subsequent encounter (2) Acute respiratory failure with hypoxia Current Visit: No Status: Acute Plan: REsp failure CXR worsened decrease in HGB, Presumed bleeding sec to rib fractures/ Hypernatremia agree with D5 water, CW antibiotics/ start tube feeds/DW daughter about DNR prognosis poor
[2021-04-02] MEDS ORDERED: WATER FOR INJ,STERILE 10 ML IM PRN (12:11)
[2021-04-02] MEDS: ZIPRASIDONE MESYLA 20 MG/VIAL IM PRN (12:37)
[2021-04-02] MEDS ORDERED: JEVITY 1.2 CAL LIQUID 1,000 ML BOT RTH SCH (13:00)
--- NOTE | 2021-04-02 14:58 | PN ---
Subjective: The patient came with trauma, rib fractures, initially seen by Dr. Fernandes, now he is ou t of [facility]. He asked me to follow the patient from the surgical standpoint. Currently, the patient h as BiPAP machine. Most of the information is obtained today from his daughter. Objective: General: The patient is awake. Abdomen: Soft and depressible. Chest: No crepitus. Bilateral breath sounds. From the surgical standpoint, we reviewed progress today shows multifocal airspace disease concerning for pneumonia. Assessment: An 86-year-old patient with pneumonia, status post fall, rib fractures. Plan: From the surgical standpoint, no surgical intervention planned at this moment, although we enc ouraged incentive spirometry if possible and follow with his Pulmonary service. KEATON/MODL Voice ID: [id number] Report ID: [id number]
[2021-04-02] MEDS: Levofloxacin 750mg IV 750 MG/150 ML BAG IV SCH (15:49)
[2021-04-02 18:20] LABS: Hematocrit 27.2 % (39.6-49.0); MPV 8.8 fL (7.6-11.3); RBC Red Blood Cell Count 2.99 M/uL (4.33-5.43)
[2021-04-02 18:48] LABS: Potassium 3.7 mmol/L (3.5-5.1)
[2021-04-02] MEDS ORDERED: METOPROLOL TARTRATE 5 MG/5 ML INJ IV SCH (21:00)
[2021-04-02] MEDS: METHYLPREDNISOLONE 40 MG INJ IV SCH (22:05)
--- NOTE | 2021-04-02 23:47 | P.CNS ---
Chief Complaint: resp failure History of Present Illness: Pt is an 86 y/o male with past medical hx of hypertension, copd on 4l oxygen at hoem presented s/p fall whiel at home. Pt was brought in for further evaluation. On evaluation in the ED, pt was noted to habe several rib fracture and was altered. Admission was recommended.Labs at the time were pertinent for hypernatremia. Allergies No Known Allergies Allergy (Verified 11/03/20 04:41) Home Medications: Amlodipine [Norvasc*] 10 mg PO DAILY 08/06/19 Metoprolol Tartrate 75 mg PO BID 08/06/19 Simvastatin 80 mg PO DAILY 08/06/19 Tamsulosin [Flomax*] 0.4 mg PO DAILY 08/06/19 Aspirin [Tariq Chewable Aspirin] 81 mg PO DAILY 11/03/20 Quetiapine [Seroquel*] 25 mg PO BEDTIME #30 tab 11/09/20 Spironolactone [Aldactone*] 25 mg PO DAILY #30 tab 11/09/20 Albuterol Sulfate [Proair Respiclick] 2 inh IH QID PRN 03/31/21 Fluticasone/Vilanterol [Breo Ellipta 200-25 Mcg INH] 1 inh IH DAILY 03/31/21 - Past Medical/Surgical History Diabetic: No -: hypertension -: Copd -: Coronary artery disease -: HLD -: Cardiac catheterization with stent placement Psychosocial/ Personal History: Patient lives at home with son - Social History Alcohol use: No CD- Drugs: No Caffeine use: No Place of Residence: Home Physical Examination Temp Pulse Resp BP Pulse Ox 98.9 F 94 H 20 144/67 H 95 04/02/21 20:00 04/02/21 20:00 04/02/21 21:56 04/02/21 20:00 04/02/21 21:56
[2021-04-03] MEDS: METOPROLOL TARTRATE 5 MG/5 ML INJ IV SCH ×4 (00:53→17:37)
[2021-04-03] MEDS: ALBUTEROL 2.5 MG/3 ML NEB SOL NEB SCH ×4 (02:00→20:00)
[2021-04-03] MEDS: IPRATROPIUM BROM 0.5MG/2.5ML NEB SCH ×4 (02:00→20:00)
[2021-04-03] MEDS: HYDRALAZINE HCL 20 MG/ML VIAL IV PRN (05:43)
[2021-04-03] MEDS: HALOPERIDOL LACT 5 MG/ML INJ IV PRN ×2 (05:44→14:50)
[2021-04-03 06:00] LABS: Absolute Lymphocytes (CBC) 0.3 K/uL (0.7-4.9); Basophils % 0.1 % (0-1.3); Hematocrit 26.2 % (39.6-49.0); Lymphocytes % 2.9 % (15.3-44.8); MPV 8.7 fL (7.6-11.3); RBC Red Blood Cell Count 2.85 M/uL (4.33-5.43)
--- NOTE | 2021-04-03 06:12 | P.PN ---
Date of Service: 04/03/21 Subjective: Continues with confusion, mild agitation. Seems to be more calm this morning, slightly more compliant and alert Hemoglobin stable, off BiPAP this morning tolerating nasal cannula No new complaints ROS: 10 point ROS as noted above, otherwise negative Physical exam GEN: Alert, oriented to self only, confused HEENT: Normal conjunctiva, sclera anicteric CV: Sinus tachycardia, HR: 90s, no edema Pulm: diminished bilaterally, mild labored respirations on 10L NC ABD: Soft, nontender, nondistended Integumentary: No rashes Neuro: Weak voice, slight slurred speech, moves all extremities, generalized weakness Problem List Multiple rib fractures s/p fall Acute encephalopathy, likely metabolic, component of delirium Hemothorax Pneumonia Hypernatremia, acute Chronic COPD and O2 at home Acute on chronic respiratory failure with hypoxemia Acute renal failure secondary to dehydration, resolved remains NPO, refused to work with ST NS changed to D5 due to hypernatremia on 04/02, nephrology consulted for further assistance, slowly improving. Unable to place Dobbhoff after multiple attempts, will initiate PPN today We will discuss with speech therapy to attempt to work with patient today as he seems a little bit more compliant Continue pain medication as needed for rib fractures General surgery was consulted for hemothorax, which has been stable, no current plan for surgery/procedure ABG with moderate CO2 retention, patient with moderatesevere chronic COPD, improved Leukocytosis noted on 03/31, with improvement Continue Levaquin for pneumonia. Concern with rib fractures that led to atelectasis, can develop pneumonia or empyema Pulmonology consulted Titrate oxygen as tolerated Continue bronchodilators, nebulizers, steroids Seem to respond well to Geodon Patient had been worsening, seems little bit more stable/improved today hgb dropped, after receiving 1 dose of Lovenox DVT prophylaxis, discontinued, hemoglobin stable Code: Full Dispo: some improvement, more stable, may be more appropriate for LTAC prior to SNF Time Spent Managing Pts Care (In Minutes): 35
[2021-04-03 06:32] LABS: Bilirubin Total 0.3 mg/dL (0.2-1.0); Magnesium 2.3 mg/dL (1.8-2.4); Potassium 4.2 mmol/L (3.5-5.1); Protein, Total 5.7 g/dL (6.4-8.2)
[2021-04-03 08:09] LABS: Blood Morphology Comment NOT SEEN (NOT SEEN); Platelet Estimate ADEQ; Platelets, Giant PRESENT; White Blood Cell Scan OK (OK)
[2021-04-03] MEDS: D5W 1,000 ML IV SCH ×2 (08:42→22:38)
[2021-04-03] MEDS: MORPHINE 2 MG/ML SYR IV PRN ×2 (08:42→17:38)
[2021-04-03] MEDS: TAMSULOSIN 0.4 MG SR CAP PO SCH (09:00)
[2021-04-03] MEDS: SPIRONOLACTONE 25 MG TABLET PO SCH (09:00)
[2021-04-03] MEDS: METHYLPREDNISOLONE 40 MG INJ IV SCH ×2 (09:14→22:38)
--- NOTE | 2021-04-03 09:46 | RAD REPORT ---
EXAM DESCRIPTION: RAD - Chest Single View - 04/03/2021 5:50 am CLINICAL HISTORY: rib fractures, f/u hemothorax COMPARISON: Chest Single View dated 04/02/2021; Chest Single View dated 04/01/2021; Chest Single View dated 03/31/2021; Chest Single View dated 11/05/2020; Chest For Pe Angio dated 11/03/2020 FINDINGS: Lines: None. Lungs: Pleural plaques. Airspace opacities at the right greater than left lung bases noted. This is s imilar to 04/02/2021 . Pleural: Layering right pleural effusion bilateral pleural plaques. Cardiac: The heart size is within normal limits. Bones: No acute fractures. Other: Atherosclerosis. IMPRESSION: Similar appearing bilateral airspace disease with right pleural effusion concerning for pneumonia.
--- NOTE | 2021-04-03 10:42 | RAD REPORT ---
EXAM DESCRIPTION: RAD - Abdomen 1 View (KUB) - 04/03/2021 10:00 am CLINICAL HISTORY: Device placement Dobhoff tube placement FINDINGS: The second film demonstrates the NG tube entering the left mainstem bronchus with its tip in the left lower lobe bronchus. Patient's nurse Fe notified at 10:37 a.m. April 03, 2021
--- NOTE | 2021-04-03 12:33 | P.PN ---
Subjective Date of Service: 04/03/21 Chief Complaint: resp failure Subjective: Improving (Better today off BIPA more alert and reponsive) Review of Systems is unable to be obtained Physical Examination - Vital Signs Temperature: 97.2 F Blood Pressure: 128/61 Pulse: 92 Respirations: 20 Pulse Ox (%): 94 - Physical Exam General: Acute distress, Mild distress Respiratory: Expiratory wheezes Cardiovascular: No edema, Regular rate/rhythm Assessment & Plan - Problems (Diagnosis) (1) Ribs, multiple fractures Current Visit: Yes Status: Acute Plan: Patient is 86 years of age admitted with a fall multiple right posterior rib fractures possible underlying lung contusion is cut more haziness white count is declining CTs chest x-ray reviewed prognosis is poor continue with nebulizer and antibiotics for now mild hypernatremia had p.o. Vicodin will discuss with family members regarding DNR a Qualifiers: Encounter type: subsequent encounter (2) Acute respiratory failure with hypoxia Current Visit: No Status: Acute Plan: Stable off BIPAP CXRy worse poss bleeding hypernatremia improving. Pt agreeable to dobhoff WBC now normal/ HGB stable
[2021-04-03] MEDS: Levofloxacin 750mg IV 750 MG/150 ML BAG IV SCH (15:01)
[2021-04-03] MEDS: ZIPRASIDONE MESYLA 20 MG/VIAL IM PRN (15:40)
[2021-04-03] MEDS ORDERED: D50W 25 GM/50 ML SYRINGE IV PRN (16:00)
[2021-04-03] MEDS ORDERED: GLUCAGON 1 MG/VIAL IM PRN (16:00)
[2021-04-03] MEDS: AA 4.25 %/D5W/ELECTROLYTES 2,000 ML with MULTIVITAMINS INJ 10 ML IV SCH ×2 (17:09)
[2021-04-03] MEDS ORDERED: INSULIN -REGULAR HUMAN 50 UNIT/0.5 ML ML SQ SCH (18:00)
[2021-04-03 18:21] LABS: Potassium 3.7 mmol/L (3.5-5.1)
[2021-04-03 19:27] LABS: Phosphorus 2.8 mg/dL (2.5-4.9)
[2021-04-04] MEDS: METOPROLOL TARTRATE 5 MG/5 ML INJ IV SCH ×2 (00:31→05:47)
[2021-04-04] MEDS: HYDRALAZINE HCL 20 MG/ML VIAL IV PRN (00:32)
[2021-04-04] MEDS: IPRATROPIUM BROM 0.5MG/2.5ML NEB SCH ×4 (01:55→20:32)
[2021-04-04] MEDS: ALBUTEROL 2.5 MG/3 ML NEB SOL NEB SCH ×4 (01:55→20:32)
[2021-04-04] MEDS ORDERED: METOPROLOL TARTRATE 5 MG/5 ML INJ IV ONE (02:16)
[2021-04-04] MEDS: D5W 1,000 ML IV SCH ×2 (05:48→09:51)
[2021-04-04] MEDS: INSULIN -REGULAR HUMAN 50 UNIT/0.5 ML ML SQ SCH ×4 (05:49→17:23)
--- NOTE | 2021-04-04 06:12 | P.PN ---
Date of Service: 04/04/21 Subjective: Improving, following commands, more calm, less agitated O2 requirement down to 8L NC Nonproductive cough ROS: 10 point ROS as noted above, otherwise negative Physical exam GEN: Alert, oriented to self and place, mild confusion HEENT: Normal conjunctiva, sclera anicteric CV: Sinus tachycardia, HR: 90s, no edema Pulm: diminished bilaterally, mild labored respirations on 8L NC ABD: Soft, nontender, nondistended Integumentary: No rashes Neuro: Weak voice, moves all extremities, generalized weakness Problem List Multiple rib fractures s/p fall Acute encephalopathy, likely metabolic, component of delirium Hemothorax Pneumonia Hypernatremia, acute Chronic COPD and O2 at home Acute on chronic respiratory failure with hypoxemia Acute renal failure secondary to dehydration, resolved Able to work with speech therapy yesterday, diet advanced For hypernatremia, improving, nephrology consulted Continue pain medication as needed for rib fractures General surgery was consulted for hemothorax, which has been stable, no current plan for surgery/procedure ABG with moderate CO2 retention, patient with moderatesevere chronic COPD, improved Leukocytosis noted on 03/31, with improvement Continue Levaquin for pneumonia. Concern with rib fractures that led to atelectasis, can develop pneumonia or empyema Pulmonology consulted Titrate oxygen as tolerated Continue bronchodilators, nebulizers, steroids Seem to respond well to Geodon Patient seems to be improving over the last 2 days hgb dropped, after receiving 1 dose of Lovenox DVT prophylaxis, discontinued, hemoglobin stable Code: Full Dispo: some improvement, more stable, more appropriate for LTAC. Discussed with patient's son, agreeable Time Spent Managing Pts Care (In Minutes): 35
[2021-04-04 06:17] LABS: Absolute Lymphocytes (CBC) 0.4 K/uL (0.7-4.9); Hematocrit 25.4 % (39.6-49.0); Lymphocytes % 4.2 % (15.3-44.8); MPV 8.4 fL (7.6-11.3); RBC Red Blood Cell Count 2.81 M/uL (4.33-5.43)
[2021-04-04 06:31] LABS: Albumin 1.9 g/dL (3.4-5.0); Bilirubin Total 0.3 mg/dL (0.2-1.0); Magnesium 2.3 mg/dL (1.8-2.4); Potassium 4.1 mmol/L (3.5-5.1); Protein, Total 5.7 g/dL (6.4-8.2)
[2021-04-04] MEDS: SPIRONOLACTONE 25 MG TABLET PO SCH (09:04)
[2021-04-04] MEDS: TAMSULOSIN 0.4 MG SR CAP PO SCH (09:05)
[2021-04-04] MEDS: METOPROLOL TAR 50 MG TAB PO SCH ×2 (09:05→22:02)
[2021-04-04] MEDS: METHYLPREDNISOLONE 40 MG INJ IV SCH ×2 (09:06→21:56)
--- NOTE | 2021-04-04 09:46 | P.PN ---
Subjective Date of Service: 04/04/21 Chief Complaint: resp failure Physical Examination - Vital Signs Temperature: 97.7 F Blood Pressure: 120/59 Pulse: 89 Respirations: 18 Pulse Ox (%): 99
--- NOTE | 2021-04-04 12:09 | RAD REPORT ---
EXAM DESCRIPTION: US - Renal Ultrasound-Complete - 04/04/2021 12:02 pm CLINICAL HISTORY: tanya COMPARISON: ABDOMINAL EXAM COMPLETE dated 02/25/2011 FINDINGS: The right kidney measures grossly 9 x 4 cm. The left kidney measures grossly 11 x 5 cm. R enal cortical thickness and echogenicity are normal. No hydronephrosis or suspicious renal mass. Mostly contracted bladder shows no wall thickening or mass. No suspicious finding noted. IMPRESSION: No hydronephrosis or suspicious renal mass. No other significant findings.
--- NOTE | 2021-04-04 12:50 | P.PN ---
Subjective Date of Service: 04/04/21 Chief Complaint: resp failure Subjective: Improving (Patient is more alert today he is on nasal cannula oxygen unable to insert the top of 2) Review of Systems General: Weakness Respiratory: Shortness of Breath Cardiovascular: Chest Pain Physical Examination - Vital Signs Temperature: 97.7 F Blood Pressure: 120/59 Pulse: 89 Respirations: 18 Pulse Ox (%): 99 - Physical Exam General: Alert, Oriented x1, Cooperative Respiratory: Expiratory wheezes Cardiovascular: No edema, Normal S1 S2 Assessment & Plan - Problems (Diagnosis) (1) Ribs, multiple fractures Current Visit: Yes Status: Acute Plan: Patient is 86 years of age admitted with a fall multiple right posterior rib fractures possible underlying lung contusion is cut more haziness white count is declining CTs chest x-ray reviewed prognosis is poor continue with nebulizer and antibiotics for now mild hypernatremia had p.o. Vicodin will discuss with family members regarding DNR a Qualifiers: Encounter type: subsequent encounter (2) Acute respiratory failure with hypoxia Current Visit: No Status: Acute Plan: Patient is in continues to remain hypoxic is doing a little bit better more alert advanced diet dietitian by the bedside and able to insert nasogastric tube hypernatremia corrected mild decrease in his hemoglobin
[2021-04-04] MEDS: Levofloxacin 750mg IV 750 MG/150 ML BAG IV SCH (16:29)
[2021-04-04] MEDS ORDERED: AA 4.25 %/D5W/ELECTROLYTES 2,000 ML, Lipids 20% 250 ML with MULTIVITAMINS INJ 10 ML IV SCH ×3 (17:00)
[2021-04-04 17:19] LABS: BUN Blood Urea Nitrogen 40 mg/dL (7-18); Bicarbonate 22 mmol/L (21-32); Glucose Level 158 mg/dL (74-106); Potassium 4.3 mmol/L (3.5-5.1); Sodium Level 139 mmol/L (136-145)
[2021-04-04] MEDS: HALOPERIDOL LACT 5 MG/ML INJ IV PRN (18:07)
--- NOTE | 2021-04-04 20:36 | EKG ---
Test Date: 2021-04-04 Test Time: 02:14:49 Gear Coding Machine Operator: MK MEASUREMENT RESULTS: Intervals: Rate: 133 AK: 92 QRSD: 86 QT: 342 QTc: 509 [place]: P: 63 AK: 92 QRS: -20 T: 2 INTERPRETIVE STATEMENTS: Sinus tachycardia with short AK Nonspecific ST abnormality Abnormal ECG Compared to ECG 03/30/2021 13:25:30 Short AK interval now present ST (T wave) deviation now present Sinus rhythm no longer present Myocardial infarct finding no longer present Electronically Signed On 04-04-21 20:35:00 REPORT WRITER by Antonio Villa
[2021-04-05] MEDS: IPRATROPIUM BROM 0.5MG/2.5ML NEB SCH ×4 (02:20→20:00)
[2021-04-05] MEDS: ALBUTEROL 2.5 MG/3 ML NEB SOL NEB SCH ×4 (02:20→20:00)
[2021-04-05] MEDS: INSULIN -REGULAR HUMAN 50 UNIT/0.5 ML ML SQ SCH ×4 (06:00→18:00)
[2021-04-05] MEDS: D5W 1,000 ML IV SCH (06:00)
--- NOTE | 2021-04-05 06:18 | P.PN ---
Date of Service: 04/05/21 Subjective: No acute events overnight, patient 10 L nasal cannula. No significant change so this morning patient follow-up for more short of breath, placed on BiPAP again Patient able to eat several bites of food yesterday ROS: 10 point ROS as noted above, otherwise negative Physical exam GEN: Alert, oriented to self and place, mild confusion HEENT: Normal conjunctiva, sclera anicteric CV: Sinus tachycardia, HR: 90s, no edema Pulm: diminished bilaterally, mild labored respirations on 10L NC, crackles at r base ABD: Soft, nontender, nondistended Integumentary: No rashes Neuro: Weak voice, moves all extremities, generalized weakness Problem List Multiple rib fractures s/p fall Acute encephalopathy, likely metabolic, component of delirium Hemothorax Pneumonia Hypernatremia, acute Chronic COPD and O2 at home Acute on chronic respiratory failure with hypoxemia Acute renal failure secondary to dehydration, resolved Able to work with speech therapy on 04/03, diet advanced For hypernatremia, improving, nephrology consulted, dc IVF will give 20mg IV lasix today Continue pain medication as needed for rib fractures General surgery was consulted for hemothorax, which has been stable, no current plan for surgery/procedure ABG with moderate CO2 retention, patient with moderatesevere chronic COPD, improved Leukocytosis noted on 03/31, with improvement Continue Levaquin for pneumonia. Concern with rib fractures that led to atelectasis, can develop pneumonia or empyema Pulmonology consulted Titrate oxygen as tolerated Continue bronchodilators, nebulizers, steroids Seemed to respond well to Geodon Patient seems to be improving over the last 2-3 days hgb dropped, after receiving 1 dose of Lovenox DVT prophylaxis, discontinued, hemoglobin stable Code: Full Dispo: some improvement, more appropriate for LTAC. Discussed with patient's son, agreeable Time Spent Managing Pts Care (In Minutes): 35
[2021-04-05 06:29] LABS: BUN Blood Urea Nitrogen 43 mg/dL (7-18); Bicarbonate 23 mmol/L (21-32); Glucose Level 161 mg/dL (74-106); Potassium 4.6 mmol/L (3.5-5.1); Sodium Level 137 mmol/L (136-145)
--- NOTE | 2021-04-05 08:48 | RAD REPORT ---
EXAM DESCRIPTION: RAD - Chest Single View - 04/05/2021 6:19 am CLINICAL HISTORY: Rib fractures COMPARISON: April 03 TECHNIQUE: AP portable chest image was obtained 04/05/2021 6:19 am . FINDINGS: Chronic interstitial lung disease again noted. Extensive calcified pleural plaquing change s are again noted. Increased right base opacification noted similar to the comparison study. Heart an d vasculature are normal. No pneumothorax identified. Right-sided costophrenic angle blunting present . Known rib fractures are not well visualized on portable imaging. No acute aortic findings suspected . IMPRESSION: Stable portable chest compared to April 03 imaging.
[2021-04-05] MEDS: SPIRONOLACTONE 25 MG TABLET PO SCH (09:47)
[2021-04-05] MEDS: METHYLPREDNISOLONE 40 MG INJ IV SCH ×2 (09:47→21:18)
[2021-04-05] MEDS: METOPROLOL TAR 50 MG TAB PO SCH ×2 (09:48→21:00)
[2021-04-05] MEDS: TAMSULOSIN 0.4 MG SR CAP PO SCH (09:48)
[2021-04-05] MEDS: AMLODIPINE 10 MG TAB PO SCH (12:36)
[2021-04-05] MEDS: HYDRALAZINE HCL 20 MG/ML VIAL IV PRN (12:36)
[2021-04-05] MEDS: ZIPRASIDONE MESYLA 20 MG/VIAL IM PRN ×2 (14:56→22:50)
[2021-04-05] MEDS: WATER FOR INJ,STERILE 10 ML IM PRN ×2 (14:56→22:49)
[2021-04-05] MEDS ORDERED: FUROSEMIDE 20 MG/ 2ML VIAL IV ONE (15:00)
[2021-04-05] MEDS: Levofloxacin 750mg IV 750 MG/150 ML BAG IV SCH (15:26)
[2021-04-05] MEDS: AA 4.25 %/D5W/ELECTROLYTES 2,000 ML with MULTIVITAMINS INJ 10 ML IV SCH ×2 (17:00)
[2021-04-06] MEDS: IPRATROPIUM BROM 0.5MG/2.5ML NEB SCH ×4 (02:00→19:30)
[2021-04-06] MEDS: D5W 1,000 ML IV SCH (02:00)
[2021-04-06] MEDS: ALBUTEROL 2.5 MG/3 ML NEB SOL NEB SCH ×4 (02:00→19:30)
[2021-04-06] MEDS: INSULIN -REGULAR HUMAN 50 UNIT/0.5 ML ML SQ SCH ×4 (06:00→18:00)
--- NOTE | 2021-04-06 06:06 | P.PN ---
Date of Service: 04/06/21 Subjective: Slightly improved compared to yesterday, remained on BiPAP 70% FiO2 Wean to 60% FiO2 earlier this morning He reports feeling a little bit better, uncomfortable with the BiPAP mask, wanting to take it off. Difficulties to get much more information that then yes/no answers. Some improvements in his right rib pain ROS: 10 point ROS as noted above, otherwise negative Physical exam GEN: Alert, thin HEENT: Normal conjunctiva, sclera anicteric CV: Sinus tachycardia, HR: 90s, no edema Pulm: diminished bilaterally, crackles at base, on BIPAP 60% FIO2 ABD: Soft, nontender, nondistended Integumentary: No rashes MSK: tenderness, echymosis of R chest Neuro: Weak voice, moves all extremities, generalized weakness Problem List Multiple rib fractures s/p fall Acute encephalopathy, likely metabolic, component of delirium Hemothorax Pneumonia Hypernatremia, acute Chronic COPD and O2 at home Acute on chronic respiratory failure with hypoxemia Acute renal failure secondary to dehydration, resolved Able to work with speech therapy on 04/03, diet advanced; however noted to have cough with liquids on 04/05 concerning for aspiration hypernatremia, improving, nephrology consulted, dc'd IVF 04/05 IV 20mg lasix started 04/05 Continue pain medication as needed for rib fractures General surgery was consulted for hemothorax, which has been stable, no current plan for surgery/procedure ABG with moderate CO2 retention, patient with moderatesevere chronic COPD, improved Leukocytosis noted on 03/31, with improvement Continue Levaquin for pneumonia. Concern with rib fractures that led to atele ctasis, can develop pneumonia or empyema Pulmonology consulted Titrate oxygen as tolerated Continue bronchodilators, nebulizers, steroids Seemed to respond well to Geonicolle was improving for 2-3 days and now another set back over last 24 hrs hgb dropped after receiving 1 dose of Lovenox DVT prophylaxis, discontinued, hemoglobin stable Code: Full Dispo: guarded prognosis. some improvement. prolonged hospitalization due to mentation and comorbidities LTAC approved, anticipate patient will be stable /appropriate for discharge to LTAC tomorrow Time Spent Managing Pts Care (In Minutes): 35
[2021-04-06 06:24] LABS: Absolute Lymphocytes (CBC) 0.4 K/uL (0.7-4.9); Hematocrit 24.8 % (39.6-49.0); Lymphocytes % 3.7 % (15.3-44.8); MPV 8.4 fL (7.6-11.3); RBC Red Blood Cell Count 2.77 M/uL (4.33-5.43)
[2021-04-06 06:32] LABS: C-Reactive Protein 61.8 mg/L (<3.00); Magnesium 2.4 mg/dL (1.8-2.4); Potassium 4.4 mmol/L (3.5-5.1)
[2021-04-06] MEDS: SPIRONOLACTONE 25 MG TABLET PO SCH (09:00)
[2021-04-06] MEDS: METOPROLOL TAR 50 MG TAB PO SCH (09:00)
[2021-04-06] MEDS: TAMSULOSIN 0.4 MG SR CAP PO SCH (09:00)
[2021-04-06] MEDS: AMLODIPINE 10 MG TAB PO SCH (09:00)
[2021-04-06] MEDS: FUROSEMIDE 20 MG/ 2ML VIAL IV SCH (09:11)
[2021-04-06] MEDS: METHYLPREDNISOLONE 40 MG INJ IV SCH ×2 (09:11→22:05)
[2021-04-06] MEDS: WATER FOR INJ,STERILE 10 ML IM PRN ×2 (09:12→16:00)
[2021-04-06] MEDS: ZIPRASIDONE MESYLA 20 MG/VIAL IM PRN ×2 (09:12→15:59)
[2021-04-06] MEDS: METOPROLOL TARTRATE 5 MG/5 ML INJ IV SCH ×2 (13:33→22:05)
[2021-04-06] MEDS: Levofloxacin 750mg IV 750 MG/150 ML BAG IV SCH (15:59)
[2021-04-06] MEDS: AA 4.25 %/D5W/ELECTROLYTES 2,000 ML with MULTIVITAMINS INJ 10 ML IV SCH ×2 (17:29)
[2021-04-07] MEDS: METOPROLOL TARTRATE 5 MG/5 ML INJ IV SCH ×4 (01:57→20:54)
[2021-04-07] MEDS: IPRATROPIUM BROM 0.5MG/2.5ML NEB SCH ×4 (02:35→20:00)
[2021-04-07] MEDS: ALBUTEROL 2.5 MG/3 ML NEB SOL NEB SCH ×4 (02:35→20:00)
[2021-04-07] MEDS: ZIPRASIDONE MESYLA 20 MG/VIAL IM PRN (05:03)
[2021-04-07] MEDS: INSULIN -REGULAR HUMAN 50 UNIT/0.5 ML ML SQ SCH ×4 (06:00→18:00)
--- NOTE | 2021-04-07 06:11 | P.PN ---
Date of Service: 04/07/21 Subjective: ROS: 10 point ROS as noted above, otherwise negative Physical exam GEN: Alert, thin HEENT: Normal conjunctiva, sclera anicteric CV: Sinus tachycardia, HR: 90s, no edema Pulm: diminished bilaterally, crackles at base, on BIPAP 60% FIO2 ABD: Soft, nontender, nondistended Integumentary: No rashes MSK: tenderness, echymosis of R chest Neuro: Weak voice, moves all extremities, generalized weakness Problem List Multiple rib fractures s/p fall Acute encephalopathy, likely metabolic, component of delirium Hemothorax Pneumonia Hypernatremia, acute Chronic COPD and O2 at home Acute on chronic respiratory failure with hypoxemia Acute renal failure secondary to dehydration, resolved Able to work with speech therapy on 04/03, diet advanced; however noted to have cough with liquids on 04/05 concerning for aspiration hypernatremia, improving, nephrology consulted, dc'd IVF 04/05 IV 20mg lasix started 04/05 Continue pain medication as needed for rib fractures General surgery was consulted for hemothorax, which has been stable, no current plan for surgery/procedure ABG with moderate CO2 retention, patient with moderatesevere chronic COPD, improved Leukocytosis noted on 03/31, with improvement Continue Levaquin for pneumonia. Concern with rib fractures that led to atelectasis, can develop pneumonia or empyema Pulmonology consulted Titrate oxygen as tolerated Continue bronchodilators, nebulizers, steroids Seemed to respond well to Geodon was improving for 2-3 days and now another set back over last 24 hrs hgb dropped after receiving 1 dose of Lovenox DVT prophylaxis, discontinued, hemoglobin stable Code: Full Dispo: guarded prognosis. some improvement. prolonged hospitalization due to mentation and comorbidities LTAC approved, anticipate patient will be stable /appropriate for discharge to LTAC tomorrow Time Spent Managing Pts Care (In Minutes): 35
[2021-04-07 07:08] LABS: Absolute Lymphocytes (CBC) 0.4 K/uL (0.7-4.9); Hematocrit 27.9 % (39.6-49.0); Lymphocytes % 3.2 % (15.3-44.8); MPV 8.6 fL (7.6-11.3); RBC Red Blood Cell Count 3.06 M/uL (4.33-5.43)
[2021-04-07 07:28] LABS: ALT/SGPT 41 U/L (12-78); Albumin 1.9 g/dL (3.4-5.0); Alkaline Phosphatase 46 U/L (45-117); BUN Blood Urea Nitrogen 50 mg/dL (7-18); Bicarbonate 25 mmol/L (21-32); Bilirubin Total 0.4 mg/dL (0.2-1.0); Glucose Level 162 mg/dL (74-106); Protein, Total 5.5 g/dL (6.4-8.2); Sodium Level 140 mmol/L (136-145)
[2021-04-07 07:29] LABS: AST/SGOT 28 U/L (15-37); Magnesium 2.7 mg/dL (1.8-2.4); Potassium 5.2 mmol/L (3.5-5.1)
[2021-04-07 07:46] LABS: Blood Morphology Comment NOT SEEN (NOT SEEN); Platelet Estimate ADEQ; White Blood Cell Scan OK (OK)
--- NOTE | 2021-04-07 08:43 | RAD REPORT ---
EXAM DESCRIPTION: RAD - Chest Single View - 04/07/2021 8:25 am CLINICAL HISTORY: FOLLOW UP PNA, PULMONARY EFFUSION COMPARISON: Chest Single View dated 04/05/2021; Abdomen 1 View (KUB) dated 04/03/2021; Chest Single View dated 04/03/2021; Chest Single View dated 04/02/2021 FINDINGS: Lines: None. Lungs: No significant change in aeration lungs with consolidative airspace disease in the right mid l ivy and right lung base as well as the left mid lung. Pleural: Unchanged small right effusion. Cardiac: The heart size is within normal limits. Bones: No acute fractures. Other: IMPRESSION: No appreciable change compared with 04/05/2021 with findings remain concerning for multi focal pneumonia. The right pleural effusion is unchanged in size.
[2021-04-07] MEDS: SPIRONOLACTONE 25 MG TABLET PO SCH (09:00)
[2021-04-07] MEDS: AMLODIPINE 10 MG TAB PO SCH (09:00)
[2021-04-07] MEDS: TAMSULOSIN 0.4 MG SR CAP PO SCH (09:00)
[2021-04-07] MEDS: METHYLPREDNISOLONE 40 MG INJ IV SCH ×2 (09:10→20:55)
[2021-04-07] MEDS: FUROSEMIDE 20 MG/ 2ML VIAL IV SCH (09:11)
[2021-04-07] MEDS: Levofloxacin 750mg IV 750 MG/150 ML BAG IV SCH (16:23)
--- NOTE | 2021-04-07 16:23 | P.DS ---
Admission Date: 03/30/21 Discharge Date: 04/07/21 Disposition: [facility] Discharge Condition: FAIR Reason for Admission: resp failure, broken ribs Consultations: Pulmonology - Dr. Guadalupe Nephrology - Dr. Kumar Procedures: CT Head/C-spine/Chest/Abd/Pelvis (03/30): FINDINGS: An intracranial bleed is not seen. The ventricles are normal in caliber. An extra-axial fluid collection is not noted. Mild to moderate low-density areas within periventricular, deep and subcortical white matter probably ischemic changes secondary to small vessel disease. Fluid within the sinuses/mastoids is not seen. A cervical fracture is not seen. No dislocation is noted. The evaluation of mediastinum, baldemar, vessels, solid organs and bowel are limited secondary to the lack of contrast administration. Nondisplaced fractures are the seventh and eighth right lateral ribs. A mildly displaced fracture ninth right lateral rib. Nondisplaced fracture right tenth lateral rib. Moderately displaced fracture right posterior tenth rib. Moderately displaced fracture right posterior eleventh rib. Additional nondisplaced fracture right posterior right eleventh rib. Mildly displaced fractures right posterior twelfth rib. A small right hemothorax. Mild right lung atelectasis COPD with chronic lung changes. Bilateral calcified pleural plaques. A mediastinal hematoma is not noted. The liver,spleen, pancreas, adrenals,kidneys and bladder do not demonstrate a traumatic injury. Cholelithiasis. Infrarenal abdominal aortic aneurysm AP diameter 4 centimeters IMPRESSION: 1. No acute intracranial abnormality is seen. 2. A cervical fracture is not visualized. If the patient continues have symptoms to suggest intracranial/spinal cord pathology MRI be recommended 3. Seventh through twelfth right rib fractures with small right hemothorax 4. 4 centimeter abdominal aortic aneurysm CXR (03/31): FINDINGS: The lungs are hyperaerated. Bilateral interstitial opacities are present consistent with pulmonary fibrosis. Calcified pleural plaques. No change in multiple right rib fractures. No pneumothorax. Small right pleural effusion with mild right basilar atelectasis Heart is mildly enlarged. CXR (04/01): IMPRESSION: Mild worsening in right basilar lung aeration is seen since comparative study. CXR (04/02): IMPRESSION: Multifocal airspace disease concerning for pneumonia with mild worsening at the right lung base. CXR (04/03): IMPRESSION: Similar appearing bilateral airspace disease with right pleural effusion concerning for pneumonia. KUB (04/03): FINDINGS: The second film demonstrates the NG tube entering the left mainstem bronchus with its tip in the left lower lobe bronchus. Renal U/S (04/04): IMPRESSION: No hydronephrosis or suspicious renal mass. No other significant findings. CXR (04/05): IMPRESSION: Stable portable chest compared to April 03 imaging. CXR (04/07): FINDINGS: Chronic interstitial lung disease again noted. Extensive calcified pleural plaquing changes are again noted. Increased right base opacification noted similar to the comparison study. Heart and vasculature are normal. No pneumothorax identified. Right-sided costophrenic angle blunting present. Known rib fractures are not well visualized on portable imaging. No acute aortic findings suspected. IMPRESSION: Stable portable chest compared to April 03 imaging. Problem List Multiple rib fractures s/p fall Acute encephalopathy, likely metabolic, component of delirium secondary to infection, hypoxia Hemothorax Pneumonia Hypernatremia, acute Chronic COPD and O2 at home Acute on chronic respiratory failure with hypoxemia Acute renal failure secondary to dehydration, resolved Brief History of Present Illness: 86-year-old gentleman with a history of hypertension, COPD and chronic respiratory failure on 4 L of oxygen at baseline was brought to the emergency department because of a fall at home yesterday. Patient experienced pain today and was therefore brought to the emergency department. Imaging done in the ED demonstrating multiple rib fractures, right 7th to 12th ribs, some nondisplaced, some moderately displaced or mildly displaced. CT chest also demonstrates small right hemothorax and emphysematous changes. Head CT negative for acute disease. General surgery-Dr. Fernandes contacted recommended admission here for supportive measures and monitoring. Patient noted to be confused during my assessment in the ED and he could not provide any history. Vitals stable. He is stable on his baseline oxygen 4 L by nasal cannula. Patient is admitted for further management. Hospital Course: Patient was treated with pain medication for his rib fractures. Empirically started on antibiotics. General surgery was consulted for hemothorax findings, which has been stable, and did not require any surgical procedure. Patient was noted to have moderate CO2 retention and improved with BIPAP. Patient developed leukocytosis and there was concern that patient may have developed pneumonia with possible empyema. Pulmonology was consulted and recomm ended levaquin. Patient had some improvement. Cultures did not grow any bacteria. Throughout his hospitalization patient had altered mental status / delirum, secondary to hypercapnia / hypoxia / infection. He responded best to Geodon as needed. Initially he was not following commands and did not want to eat. He would not participate with speech therapies assessment and remained NPO for several days. He was receiving IVF and eventually started on PPN. Dobhoff was attempted several times but patient would get uncomfortable or placement was difficult and not in the correct position. chemical DVT prophylaxis was held secondary to concern for bleeding. He did receive 1 dose a few days ago and had a drop in his hemoglobin. Hgb remained stable after discontinuation of lovenox the following day. Long discussions were had with the patient's children regarding advanced care planning and disposition. They wanted to continue with full code. Patient was transferred to LT[facility] for further care. Vital Signs/Physical Exam: Physical exam GEN: Alert, thin, Oriented x1 (difficult to fully assess with BIPAP in place. follows commands HEENT: Normal conjunctiva, sclera anicteric CV: Sinus tachycardia, HR: 90s, no edema Pulm: diminished bilaterally, crackles at base, on BIPAP 50% FIO2 ABD: Soft, nontender, nondistended Integumentary: No rashes MSK: tenderness, echymosis of R chest Neuro: Weak voice, moves all extremities, generalized weakness Temp Pulse Resp BP Pulse Ox 98.2 F 73 18 149/69 H 97 04/07/21 16:00 04/07/21 16:00 04/07/21 16:00 04/07/21 16:00 04/07/21 16:00 Laboratory Data at Discharge: WBC 12.80 K/uL (4.3-10.9) H D 04/07/21 06:51 Hgb 9.1 g/dL (13.6-17.9) L 04/07/21 06:51 Hct 27.9 % (39.6-49.0) L 04/07/21 06:51 Plt Count 250 K/uL (152-406) 04/07/21 06:51 PT 12.2 SECONDS (9.5-12.5) 03/31/21 05:34 INR 1.06 03/31/21 05:34 Sodium 140 mmol/L (136-145) 04/07/21 06:51 Potassium 5.2 mmol/L (3.5-5.1) H 04/07/21 06:51 BUN 50 mg/dL (7-18) H 04/07/21 06:51 Creatinine 0.79 mg/dL (0.55-1.3) 04/07/21 06:51 Glucose 162 mg/dL (74-106) H 04/07/21 06:51 Phosphorus 4.0 mg/dL (2.5-4.9) 04/06/21 06:03 Magnesium 2.7 mg/dL (1.8-2.4) H 04/07/21 06:51 Total Bilirubin 0.4 mg/dL (0.2-1.0) 04/07/21 06:51 AST 28 U/L (15-37) 04/07/21 06:51 ALT 41 U/L (12-78) 04/07/21 06:51 Alkaline Phosphatase 46 U/L (45-117) 04/07/21 06:51 Triglycerides 100 mg/dL (<150) 04/03/21 17:48 Home Medications: Amlodipine [Norvasc*] 10 mg PO DAILY 08/06/19 Metoprolol Tartrate 75 mg PO BID 08/06/19 Simvastatin 80 mg PO DAILY 08/06/19 Tamsulosin [Flomax*] 0.4 mg PO DAILY 08/06/19 Aspirin [Tariq Chewable Aspirin] 81 mg PO DAILY 11/03/20 Quetiapine [Seroquel*] 25 mg PO BEDTIME #30 tab 11/09/20 Spironolactone [Aldactone*] 25 mg PO DAILY #30 tab 11/09/20 Albuterol Sulfate [Proair Respiclick] 2 inh IH QID PRN 03/31/21 Fluticasone/Vilanterol [Breo Ellipta 200-25 Mcg INH] 1 inh IH DAILY 03/31/21 Followup: NONE,NONE [Primary Care Provider] -
--- NOTE | 2021-04-07 16:47 | P.PN ---
Subjective Date of Service: 04/07/21 Chief Complaint: resp failure, broken ribs Physical Examination - Vital Signs Temperature: 98.2 F Blood Pressure: 149/69 Pulse: 73 Respirations: 18 Pulse Ox (%): 97
[2021-04-07 20:20] VITALS: BP 163/69; TEMP 97.3
[2021-04-07] MEDS ORDERED: DEXTROSE 10%-WATER 500 ML IV SCH (20:30)
[2021-04-07 22:29] VITALS: O2SAT 91
--- NOTE | 2021-04-09 09:58 | RAD REPORT ---
EXAM DESCRIPTION: RAD - Chest Single View - 04/04/2021 2:53 pm CLINICAL HISTORY: TRAUMA COMPARISON: Chest Single View dated 11/05/2020; Chest Single View dated 11/02/2020; Chest Single View dated 08/08/2019; Chest Single View dated 08/05/2019; Head C Spine Cap Wo Con dated 03/30/2021; Chest Fo r Pe Angio dated 11/03/2020 FINDINGS: Lines: None. Lungs: Chronic interstitial lung disease with similar findings. No definite superimposed acute proces s. Pleural: Calcified pleural plaques. Cardiac: The heart size is within normal limits. Bones: No acute fractures. Other: IMPRESSION: Chronic changes without superimposed acute process identified.
[2021-04-09] MEDS ORDERED: AA 4.25 %/D5W/ELECTROLYTES 2,000 ML, Lipids 20% 250 ML with MULTIVITAMINS INJ 10 ML IV SCH ×3 (17:00)
== END 2021-04-07 22:45 | DRG 183 ==
LOC: ER 09:47 → ERHOLD 13:47 → 2ND 15:50
PROVIDERS: ADMIT Internal Medicine; ATTEND Hospitalist
PROC: 5A09457 Assistance with Respiratory Ventilation, 24-96 Consecutive Hours, Continuous Positive Airway Pressure (ICD-10-PCS; principal; 2021-04-05)
DX: S22.41XA Multiple fractures of ribs, right side, initial encounter for closed fracture (principal); E43 Unspecified severe protein-calorie malnutrition; S27.2XXA Traumatic hemopneumothorax, initial encounter; G93.41 Metabolic encephalopathy; J96.21 Acute and chronic respiratory failure with hypoxia; J18.9 Pneumonia, unspecified organism; N17.9 Acute kidney failure, unspecified; E87.1 Hypo-osmolality and hyponatremia; J44.0 Chronic obstructive pulmonary disease with (acute) lower respiratory infection; E87.0 Hyperosmolality and hypernatremia; I25.10 Atherosclerotic heart disease of native coronary artery without angina pectoris; I10 Essential (primary) hypertension; E86.0 Dehydration; E78.5 Hyperlipidemia, unspecified; W18.30XA Fall on same level, unspecified, initial encounter; Z79.82 Long term (current) use of aspirin; Z79.899 Other long term (current) drug therapy; Z68.20 Body mass index [BMI] 20.0-20.9, adult; Z99.81 Dependence on supplemental oxygen; Z79.52 Long term (current) use of systemic steroids; Z20.822 Contact with and (suspected) exposure to COVID-19
CPT/HCPCS: 36415; 70450; 71045; 71250; 72125; 74018; 76770; 80048; 80053; 80076; 81003; 82805; 82947; 83735; 84100; 84145; 84443; 84478; 85025; 85027; 85610; 86140; 86850; 86900; 86901; 92610; 93005; 94010; 94640; 94660; 94760; 96372; 97110; 97161; 97530; 99285; J0360; J1630; J1650; J1940; J2270; J2920; J3486; J7030; J7799; U0003